=== PATIENT | male | born 1960 | race Caucasian/White ===

== ENCOUNTER 2016-08-21 13:25 | Emergency (ER) | payer OTHER ==
[~2016-08-21] VITALS: Ht 170.2 cm; Wt 86.2 kg
[~2016-08-21 13:25] MED LIST: FLUR15CA14 PO; LORA-258 PO; METH-490 PO; OMEP2.5S PO
--- NOTE | 2016-08-21 13:30 | NUR ---
PT BEN FROM [facility] TO ER BED 11. C/O SOB, CHEST PRESSURE X TODAY. STATES NON PROVOKE. ADMITTED TO HC FOR SI. GOWNED AND PLACED ON MONITOR. STABLE VITALS. AWAITING MD ALTMAN.
--- NOTE | 2016-08-21 13:47 | NUR ---
ALEX LINCOLN AT BEDSIDE FOR EVAL.
[2016-08-21] MEDS ORDERED: IV SET PRIMARY 1 EA INFUS.SET MC ONE (13:58)
[2016-08-21] MEDS ORDERED: IV NS 0.9% 500 ML IV ONE (13:58)
[2016-08-21] MEDS ORDERED: LORAZEPAM INJ 2 MG/ML VIAL ONE ×2 (13:58→18:06)
[2016-08-21] MEDS ORDERED: ASPIRIN 81 MG TAB.CHEW ONE (13:58)
--- NOTE | 2016-08-21 13:59 | NUR ---
RADIOLOGY AT BEDSIDE FOR CHEST XRAY.
[2016-08-21] MEDS ORDERED: IV NS 0.9% 500 ML BAG IV ONE (14:00)
[2016-08-21] MEDS ORDERED: LORAZEPAM INJ 2 MG/ML VIAL IV ONE ×2 (14:00→18:30)
[2016-08-21] MEDS ORDERED: ASPIRIN 81 MG TAB.CHEW PO ONE (14:00)
[2016-08-21 14:22] LABS: CALCIUM, SERUM 8.8 mg/dL (8.5-10.1); CARBON DIOXIDE 22 mmol/L (21-32); CHLORIDE 106 mmol/L (98-107); GFR 78 mL/min (>60); GLUCOSE 98 mg/dL (74-106); POTASSIUM 4.5 mmol/L (3.5-5.1); SODIUM SERUM 138 mmol/L (136-145); UREA NITROGEN, BLOOD 17 mg/dL (7-18)
[2016-08-21 14:27] LABS: BASOPHILS % (AUTO) 0.5 % (0.0-2.0); EOSINOPHILS # (AUTO) 0.1 /CMM (0.0-0.7); EOSINOPHILS % (AUTO) 1.8 % (0.0-6.0); HEMATOCRIT 43 % (39-51); HEMOGLOBIN 14.5 g/dL (13.5-17.5); INR 0.96 (0.87-1.13); LYMPHOCYTES # (AUTO) 1.8 /CMM (0.8-4.8); LYMPHOCYTES % (AUTO) 23.4 % (20.0-44.0); MEAN CORPUSCULAR HEMOGLOBIN 30 PG (26.0-33.0); MEAN CORPUSCULAR HGB CONC 34 g/dl (31.0-36.0); MEAN CORPUSCULAR VOLUME 90 fL (80-96); MONOCYTES # (AUTO) 0.5 /CMM (0.1-1.30); MONOCYTES % (AUTO) 5.9 % (2.0-12.0); NEUTROPHILS # (AUTO) 5.4 /CMM (1.8-8.9); NEUTROPHILS % (AUTO) 68.4 % (43.0-81.0); PLATELET COUNT (AUTO) 330 /CMM (150-450); PROTHROMBIN TIME 10.2 SECS (9.5-12.7); RDW COEFFICIENT OF VARIATION 13.5 (11.5-15.0); RED BLOOD CELL COUNT(AUTO) 4.78 MIL/uL (4.5-6.0); WHITE BLOOD COUNT (AUTO) 7.9 K/uL (4.3-11.0)
[2016-08-21 14:31] LABS: TROPONIN I < 0.017 ng/mL (0.00-0.056)
--- NOTE | 2016-08-21 14:42 | NUR ---
CALLED FOR FOOD TRAY
--- NOTE | 2016-08-21 18:08 | NUR ---
CALLED [facility] FOR TRANSPORT BACK TO [facility], VASILE 30-45 MIN
--- NOTE | 2016-08-21 18:55 | NUR ---
IV removed. Catheter intact and site benign. Pressure and 4x4 applied to site. No bleeding noted.
--- NOTE | 2016-08-21 19:00 | NUR ---
[facility]ON[facility] TO TRANSFER PT BACK TO [facility]. STABLE CONDITION.
[2016-08-21 19:02] VITALS: BP 127/83
== END 2016-08-21 19:03 | disposition home or self-care (01) ==
LOC: ER 13:27
DX: R07.9 Chest pain, unspecified (principal); F31.9 Bipolar disorder, unspecified; F41.9 Anxiety disorder, unspecified; F90.9 Attention-deficit hyperactivity disorder, unspecified type; K21.9 Gastro-esophageal reflux disease without esophagitis; K58.9 Irritable bowel syndrome, unspecified; M06.9 Rheumatoid arthritis, unspecified; M81.0 Age-related osteoporosis without current pathological fracture; Z88.8 Allergy status to other drugs, medicaments and biological substances; Z79.82 Long term (current) use of aspirin
CPT/HCPCS: 36415; 71010; 80048; 83880; 84484 ×2; 85025; 85378; 85730; 93005; 96374; 96376; 99285; A4606; J2060 ×2; J7040; Z7610

== ENCOUNTER 2017-09-13 15:31 | Emergency (ER) | payer OTHER ==
[~2017-09-13] VITALS: Ht 170.2 cm; Wt 81.6 kg
[2017-09-13 15:31] VITALS: BP 113/81
[~2017-09-13 15:31] MED LIST changes: -OMEP2.5S PO; +OMEP2.5S2 PO
[2017-09-13] MEDS ORDERED: LORAZEPAM 1 MG TABLET ONE (15:59)
[2017-09-13] MEDS ORDERED: LORAZEPAM 1 MG TABLET PO ONE (16:00)
[2017-09-13 16:06] LABS: BASOPHILS % (AUTO) 0.3 % (0.0-2.0); EOSINOPHILS % (AUTO) 1.5 % (0.0-6.0); HEMATOCRIT 45 % (39-51); HEMOGLOBIN 15.7 g/dL (13.5-17.5); LYMPHOCYTES # (AUTO) 2.1 /CMM (0.8-4.8); LYMPHOCYTES % (AUTO) 29.8 % (20.0-44.0); MEAN CORPUSCULAR HGB CONC 35 g/dl (31.0-36.0); MEAN CORPUSCULAR VOLUME 87 fL (80-96); MONOCYTES # (AUTO) 0.4 /CMM (0.1-1.30); MONOCYTES % (AUTO) 5.4 % (2.0-12.0); NEUTROPHILS # (AUTO) 4.6 /CMM (1.8-8.9); PLATELET COUNT (AUTO) 254 /CMM (150-450); RDW COEFFICIENT OF VARIATION 12.7 (11.5-15.0); RED BLOOD CELL COUNT(AUTO) 5.19 MIL/uL (4.5-6.0); WHITE BLOOD COUNT (AUTO) 7.2 K/uL (4.3-11.0)
[2017-09-13 16:17] LABS: CARBON DIOXIDE 23 mmol/L (21-32); CHLORIDE 104 mmol/L (98-107); CREATININE 0.9 mg/dL (0.6-1.3); GLUCOSE 112 mg/dL (74-106); POTASSIUM 3.9 mmol/L (3.5-5.1); SODIUM SERUM 136 mmol/L (136-145); UREA NITROGEN, BLOOD 18 mg/dL (7-18)
[2017-09-13 16:19] LABS: INR 0.95 (0.85-1.15)
[2017-09-13 16:26] LABS: TROPONIN I < 0.017 ng/mL (0.00-0.056)
[2017-09-13 16:34] LABS: D-DIMER 0.38 mg/L(FEU (0.17-0.50)
== END 2017-09-13 17:04 | disposition home or self-care (01) ==
LOC: ER 15:32
DX: F41.9 Anxiety disorder, unspecified (principal); G43.909 Migraine, unspecified, not intractable, without status migrainosus; K21.9 Gastro-esophageal reflux disease without esophagitis; K58.9 Irritable bowel syndrome, unspecified; Z88.8 Allergy status to other drugs, medicaments and biological substances
CPT/HCPCS: 36415; 71045; 80048; 84484; 85025; 85378; 85730; 93005; 99285; A4606; Z7610

== ENCOUNTER 2019-02-07 18:29 | Emergency (ER) | payer OTHER ==
[~2019-02-07] VITALS: Ht 170.2 cm; Wt 83.9 kg
[2019-02-07 19:02] LABS: APPEARANCE,URINE Clear (CLEAR); BILIRUBIN,URINE Negative (NEGATIVE); BLOOD, URINE Negative Ery/uL (NEGATIVE); COLOR,URINE Yellow (YELLOW); KETONES,URINE Negative (NEGATIVE); LEUKOCYTE ESTERASE ,URINE Trace (NEGATIVE); NITRITE, URINE Negative (NEGATIVE); PROTEIN,URINE Negative (NEGATIVE); UGLUCOSE Negative (NEGATIVE); UROBILINOGEN,URINE 0.2 EU/dL (0.2)
--- NOTE | 2019-02-07 19:05 | NUR ---
patient came in to the er verbalized "i want to kill myself, i will take all my pills at once". On room air, breathing evenly and unlabored. kept comfortable, sitter at bedside for constant monitoring. Will continue to monitor accordingly.
--- NOTE | 2019-02-07 19:10 | NUR ---
urine collected and sent to lab
[2019-02-07 19:30] LABS: BACTERIA,URINE Rare /HPF (None Seen); RBC,URINE NONE SEEN /HPF (0-2); SQUAMOUS EPITHELIAL CELL,UR Rare /HPF (None Seen); WBC,URINE 2-4/HPF /HPF (0-3)
[2019-02-07 19:31] LABS: MUCUS,URINE Few /LPF (None Seen)
[2019-02-07 19:32] LABS: BASOPHILS % (AUTO) 0.5 % (0.0-2.0); HEMATOCRIT 43 % (39-51); HEMOGLOBIN 14.8 g/dL (13.5-17.5); LYMPHOCYTES # (AUTO) 2.7 /CMM (0.8-4.8); LYMPHOCYTES % (AUTO) 35.6 % (20.0-44.0); MEAN CORPUSCULAR HGB CONC 35 g/dl (31.0-36.0); MEAN CORPUSCULAR VOLUME 90 fL (80-96); MONOCYTES # (AUTO) 0.6 /CMM (0.1-1.30); MONOCYTES % (AUTO) 8.6 % (2.0-12.0); NEUTROPHILS # (AUTO) 4.1 /CMM (1.8-8.9); NEUTROPHILS % (AUTO) 54.3 % (43.0-81.0); PLATELET COUNT (AUTO) 307 /CMM (150-450); RED BLOOD CELL COUNT(AUTO) 4.72 MIL/uL (4.5-6.0); WHITE BLOOD COUNT (AUTO) 7.6 K/uL (4.3-11.0)
[2019-02-07 19:43] LABS: CALCIUM, SERUM 8.8 mg/dL (8.5-10.1); CARBON DIOXIDE 25 mmol/L (21-32); CHLORIDE 104 mmol/L (98-107); GLUCOSE 89 mg/dL (74-106); POTASSIUM 3.7 mmol/L (3.5-5.1); SODIUM SERUM 139 mmol/L (136-145); UREA NITROGEN, BLOOD 15 mg/dL (7-18)
[2019-02-07 19:49] LABS: ALANINE AMINOTRANSFERASE 32 U/L (12-78); ALBUMIN 3.8 g/dL (3.4-5.0); ALCOHOL, BLOOD < 3 mg/dL (0-0); ALKALINE PHOSPHATASE 83 U/L (46-116); ASPARTATE AMINOTRANSFERASE 16 U/L (15-37); BILIRUBIN,TOTAL 0.2 mg/dL (0.2-1.0); TOTAL PROTEIN, SERUM 7.3 g/dL (6.4-8.2)
[2019-02-07 19:52] LABS: ACETAMINOPHEN < 5 ug/ml (10-30)
--- NOTE | 2019-02-07 20:19 | NUR ---
PER JIM AT [facility] INTAKE, MALE BED AVAILABLE AT THIS TIME. FAXED OVER CLINICAL INFORMATION, PENDING ADMISSION
--- NOTE | 2019-02-07 21:25 | NUR ---
PT [facility] ACCEPTING MD: DR. SANTAMARIA NUMBER FOR REPORT: [phone]
--- NOTE | 2019-02-07 21:30 | NUR ---
[facility] ETA 2300, TRIP NUMBER [id number]
--- NOTE | 2019-02-07 21:35 | NUR ---
Note sawyer in ED - 02/07/19 at 2143 by GAURANG PT PACING AROUND IN BED AND CONSTANTLY NEEDING TO BE TOLD TO RETURN TO BED. PT STATES HE FEELS ANXIOUS AND AGITATED. DR. CORDOVA MADE AWARE
--- NOTE | 2019-02-07 21:35 | NUR ---
PT PACING AROUND NEAR BED AND CONSTANTLY NEEDING TO BE TOLD TO RETURN TO BED. PT STATES HE FEELS ANXIOUS AND AGITATED. DR. CORDOVA MADE AWARE, SITTER AT BEDSIDE
--- NOTE | 2019-02-07 21:40 | NUR ---
GAVE REPORT TO VINNIE CONNER FOR [facility]
--- NOTE | 2019-02-07 23:03 | NUR ---
[facility] CALLED TO UPDATE ETA TO [phone]
[2019-02-08 00:01] VITALS: BP 98/55
--- NOTE | 2019-02-08 00:03 | NUR ---
GAVE REPORT TO [facility] FOR TRANSPORTATION [facility]
== END 2019-02-08 00:03 ==
LOC: ER 18:29
DX: R45.851 Suicidal ideations (principal); F32.9 Major depressive disorder, single episode, unspecified; G43.909 Migraine, unspecified, not intractable, without status migrainosus; K21.9 Gastro-esophageal reflux disease without esophagitis; K58.9 Irritable bowel syndrome, unspecified; M06.9 Rheumatoid arthritis, unspecified; M81.0 Age-related osteoporosis without current pathological fracture; F90.9 Attention-deficit hyperactivity disorder, unspecified type; F17.200 Nicotine dependence, unspecified, uncomplicated; Z88.8 Allergy status to other drugs, medicaments and biological substances; Z79.899 Other long term (current) drug therapy
CPT/HCPCS: 36415; 80048; 80076; 80305; 80307; 80329; 81001; 85025; 99285; G0480; 81000-TC

== ENCOUNTER 2019-03-20 13:53 | Emergency (ER) | payer OTHER ==
[~2019-03-20] VITALS: Ht 170.2 cm; Wt 90.7 kg
--- NOTE | 2019-03-20 13:59 | NUR ---
"SUICIDAL, PT STATES "I FEEL LIKE KILLING MYSELF, OD ON HEROIN", -HI" PT AAOX4, -SOB, NAD NOTED, ALL BELOGINGS IN LOCKER FOR SAFETY, 1:1 SITTER AT BEDSIDE, PENDING MD ALTMAN.
--- NOTE | 2019-03-20 14:02 | NUR ---
Security at bedside for wanding.
--- NOTE | 2019-03-20 14:07 | NUR ---
URINE SPECIMEN COLLECTED AND SENT TO LAB.
--- NOTE | 2019-03-20 14:10 | NUR ---
AT BEDSIDE FOR EVAL.
--- NOTE | 2019-03-20 14:15 | NUR ---
BAM left a voicemail message for Dmitry requesting a call back regarding bed availability at [facility].
--- NOTE | 2019-03-20 14:43 | NUR ---
BAM received a callback from Dmitry stating they should have beds available. BAM provided Dmitry with pt's information. Dmitry stated he will call BAM right back in a few minutes after checking in with [facility]. BAM to fax clinicals once labs are done.
[2019-03-20 15:03] LABS: BILIRUBIN,URINE SMALL (NEGATIVE); BLOOD, URINE Negative Ery/uL (NEGATIVE); COLOR,URINE Yellow (YELLOW); KETONES,URINE Trace (NEGATIVE); LEUKOCYTE ESTERASE ,URINE Negative (NEGATIVE); NITRITE, URINE Negative (NEGATIVE); PH,URINE 5.5 (5.0-8.0); PROTEIN,URINE 30 mg/dl (NEGATIVE); UGLUCOSE Negative (NEGATIVE); UROBILINOGEN,URINE 0.2 EU/dL (0.2)
[2019-03-20 15:04] LABS: APPEARANCE,URINE HAZY (CLEAR)
[2019-03-20 15:10] LABS: BASOPHILS # (AUTO) 0.1 /CMM (0.0-0.2); BASOPHILS % (AUTO) 1.2 % (0.0-2.0); EOSINOPHILS % (AUTO) 2.3 % (0.0-6.0); HEMATOCRIT 43 % (39-51); HEMOGLOBIN 14.3 g/dL (13.5-17.5); LYMPHOCYTES # (AUTO) 2.5 /CMM (0.8-4.8); MEAN CORPUSCULAR HGB CONC 33 g/dl (31.0-36.0); MEAN CORPUSCULAR VOLUME 92 fL (80-96); MONOCYTES # (AUTO) 0.7 /CMM (0.1-1.30); MONOCYTES % (AUTO) 7.3 % (2.0-12.0); NEUTROPHILS # (AUTO) 5.8 /CMM (1.8-8.9); NEUTROPHILS % (AUTO) 62.2 % (43.0-81.0); PLATELET COUNT (AUTO) 295 /CMM (150-450); RED BLOOD CELL COUNT(AUTO) 4.69 MIL/uL (4.5-6.0); WHITE BLOOD COUNT (AUTO) 9.3 K/uL (4.3-11.0)
[2019-03-20 15:39] LABS: BACTERIA,URINE Few /HPF (None Seen); MUCUS,URINE Many /LPF (None Seen); RBC,URINE 0-2 /HPF (0-2); SQUAMOUS EPITHELIAL CELL,UR Few /HPF (None Seen); WBC,URINE 0-2 /HPF (0-3)
--- NOTE | 2019-03-20 15:40 | NUR ---
BAM called Dmitry again to inquire if they will have a bed for the pt. Per Dmitry, pt. will have a bed at [facility].
--- NOTE | 2019-03-20 16:03 | NUR ---
Social service consult requested by Dr. Lugo for suicidal ideations with a plan to overdose on heroin. Pt. is a 59 year old male with a plan to OD on heroin. BAM met with the pt. bedside. Pt. is alert and oriented x 4. Pt has a sad affect and appears teary eyed. Pt. states he resides in [place]. Pt. is seeking voluntary hospitalization. Pt. was hospitalized at [facility] psychiatric hospital on 02/07/19. Pt. has a psychiatric diagnosis of ADHD, Depression and Anxiety. Pt. is supposed to take Ativan but has not taken any as his psychiatrist is retired and he hasn't seen another one. Pt. has tried heroin once in the past and denies any other drug or alcohol use. BAM informed pt. he is being referred to [facility] for psychiatric admission and pt. agreed. BAM received a call from CHECO at [facility] Intake informing SW they have not received any clinicals. BAM informed him they will be faxed once the lab results are available. BAM updated UBALDO Porter and ROGER Sarmiento with pt's discharge plan.
[2019-03-20 16:07] LABS: CALCIUM, SERUM 9.2 mg/dL (8.5-10.1); CARBON DIOXIDE 23 mmol/L (21-32); CHLORIDE 105 mmol/L (98-107); CREATININE 1.1 mg/dL (0.6-1.3); GLUCOSE 150 mg/dL (74-106); POTASSIUM 3.5 mmol/L (3.5-5.1); SODIUM SERUM 140 mmol/L (136-145); UREA NITROGEN, BLOOD 18 mg/dL (7-18)
[2019-03-20 16:08] LABS: ACETAMINOPHEN < 2 ug/ml (10-30); ALANINE AMINOTRANSFERASE 17 U/L (12-78); ALBUMIN 3.7 g/dL (3.4-5.0); ALCOHOL, BLOOD < 3 mg/dL (0-0); ALKALINE PHOSPHATASE 84 U/L (46-116); ASPARTATE AMINOTRANSFERASE 16 U/L (15-37); BILIRUBIN,DIRECT 0.1 mg/dL (0.0-0.2); BILIRUBIN,TOTAL 0.6 mg/dL (0.2-1.0); SALICYLATE < 2.8 mg/dL (2.8-20.0); TOTAL PROTEIN, SERUM 7.1 g/dL (6.4-8.2)
--- NOTE | 2019-03-20 19:05 | NUR ---
[facility] INTAKE FROM [facility] WILL CALL BACK FOR UPDATE
--- NOTE | 2019-03-20 21:16 | NUR ---
ACCEPTED TO [facility]. [phone] REPORT. ACCEPTING MD DR KERR
[2019-03-20 22:45] VITALS: BP 110/63
--- NOTE | 2019-03-20 22:45 | NUR ---
PT TRANSPORTED TO [facility], NAD NOTED -SOB, REPORT GIVEN TO STAFF.
--- NOTE | 2019-03-20 22:45 | NUR ---
REPORT GIVEN TO ESSIE PORRAS
== END 2019-03-20 22:47 ==
LOC: ER 13:53
DX: R45.851 Suicidal ideations (principal); F32.9 Major depressive disorder, single episode, unspecified; G43.909 Migraine, unspecified, not intractable, without status migrainosus; K21.9 Gastro-esophageal reflux disease without esophagitis; K58.9 Irritable bowel syndrome, unspecified; M06.9 Rheumatoid arthritis, unspecified; M81.0 Age-related osteoporosis without current pathological fracture; F90.9 Attention-deficit hyperactivity disorder, unspecified type; F17.200 Nicotine dependence, unspecified, uncomplicated; Z88.8 Allergy status to other drugs, medicaments and biological substances; Z60.2 Problems related to living alone
CPT/HCPCS: 36415; 80048; 80076; 80305; 80307; 80329; 81001; 85025; 99285; G0480; 81000-TC

== ENCOUNTER 2019-04-14 00:09 | Emergency (ER) | payer OTHER ==
[~2019-04-14] VITALS: Ht 170.2 cm; Wt 88.5 kg
--- NOTE | 2019-04-14 00:40 | NUR ---
BIBSELF C/O +SI - HI, PLAN TO OVERDOSE ON HEROINE. 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 PT AOX4 RR EVEN AND UNLABORD. NO SOB NOTED. NO NVD AT THIS TIME. PT PERSONAL BELONGINGS PLACED IN SECUIRTY LOCKER. PT WANDED PER SECURITY. PT PLACED ON SECURITY PRECAUTION. SITTER WITHIN LINE OF SIGHT.
[2019-04-14 01:05] LABS: CALCIUM, SERUM 9.2 mg/dL (8.5-10.1); CARBON DIOXIDE 22 mmol/L (21-32); CHLORIDE 107 mmol/L (98-107); CREATININE 0.8 mg/dL (0.6-1.3); GLUCOSE 103 mg/dL (74-106); POTASSIUM 3.9 mmol/L (3.5-5.1); SODIUM SERUM 140 mmol/L (136-145); UREA NITROGEN, BLOOD 15 mg/dL (7-18)
[2019-04-14 01:07] LABS: BASOPHILS # (AUTO) 0.1 /CMM (0.0-0.2); BASOPHILS % (AUTO) 0.8 % (0.0-2.0); EOSINOPHILS % (AUTO) 2.4 % (0.0-6.0); HEMATOCRIT 45 % (39-51); HEMOGLOBIN 15.2 g/dL (13.5-17.5); LYMPHOCYTES # (AUTO) 3.2 /CMM (0.8-4.8); LYMPHOCYTES % (AUTO) 41.4 % (20.0-44.0); MEAN CORPUSCULAR HGB CONC 34 g/dl (31.0-36.0); MEAN CORPUSCULAR VOLUME 90 fL (80-96); MONOCYTES # (AUTO) 0.6 /CMM (0.1-1.30); MONOCYTES % (AUTO) 8.1 % (2.0-12.0); NEUTROPHILS # (AUTO) 3.6 /CMM (1.8-8.9); NEUTROPHILS % (AUTO) 47.3 % (43.0-81.0); PLATELET COUNT (AUTO) 284 /CMM (150-450); RED BLOOD CELL COUNT(AUTO) 4.99 MIL/uL (4.5-6.0); WHITE BLOOD COUNT (AUTO) 7.7 K/uL (4.3-11.0)
--- NOTE | 2019-04-14 01:07 | NUR ---
urine collected. sent to lab
[2019-04-14 01:11] LABS: ALANINE AMINOTRANSFERASE 27 U/L (12-78); ALCOHOL, BLOOD < 3 mg/dL (0-0); ALKALINE PHOSPHATASE 92 U/L (46-116); ASPARTATE AMINOTRANSFERASE 16 U/L (15-37); BILIRUBIN,DIRECT 0.1 mg/dL (0.0-0.2); BILIRUBIN,TOTAL 0.5 mg/dL (0.2-1.0); TOTAL PROTEIN, SERUM 7.5 g/dL (6.4-8.2)
[2019-04-14 01:13] LABS: APPEARANCE,URINE Clear (CLEAR); BILIRUBIN,URINE Negative (NEGATIVE); BLOOD, URINE Negative Ery/uL (NEGATIVE); COLOR,URINE Yellow (YELLOW); KETONES,URINE Negative (NEGATIVE); LEUKOCYTE ESTERASE ,URINE Small (NEGATIVE); NITRITE, URINE Negative (NEGATIVE); PH,URINE 5.5 (5.0-8.0); PROTEIN,URINE Negative (NEGATIVE); UGLUCOSE Negative (NEGATIVE); UROBILINOGEN,URINE 0.2 EU/dL (0.2)
[2019-04-14 01:16] LABS: ACETAMINOPHEN 0 ug/ml (10-30); SALICYLATE 1.9 mg/dL (2.8-20.0)
[2019-04-14 01:50] LABS: BACTERIA,URINE None seen /HPF (None Seen); RBC,URINE 0-2 /HPF (0-2); SQUAMOUS EPITHELIAL CELL,UR Few /HPF (None Seen)
--- NOTE | 2019-04-14 02:43 | NUR ---
PATIENT ACCEPTED TO [facility] BY DR SANTAMARIA. # FOR REPORT [phone].
[2019-04-14 02:45] VITALS: BP 122/77
--- NOTE | 2019-04-14 03:02 | NUR ---
[facility] CALLED FOR BLS TRANSPORT. #[phone]
--- NOTE | 2019-04-14 03:18 | NUR ---
[facility] ETA 4501
--- NOTE | 2019-04-14 03:51 | NUR ---
REPORT GIVEN TO EMILY CONNER FOR CONTINUATION OF CARE.
--- NOTE | 2019-04-14 06:03 | NUR ---
[facility] AT BEDSIDE FOR TRANSPORT TO [facility].
== END 2019-04-14 06:04 ==
LOC: ER 00:12
DX: R45.851 Suicidal ideations (principal); F15.10 Other stimulant abuse, uncomplicated; G43.909 Migraine, unspecified, not intractable, without status migrainosus; K21.9 Gastro-esophageal reflux disease without esophagitis; K58.9 Irritable bowel syndrome, unspecified; M06.9 Rheumatoid arthritis, unspecified; F17.200 Nicotine dependence, unspecified, uncomplicated; M81.0 Age-related osteoporosis without current pathological fracture; F90.9 Attention-deficit hyperactivity disorder, unspecified type; Z88.8 Allergy status to other drugs, medicaments and biological substances; Z79.899 Other long term (current) drug therapy
CPT/HCPCS: 36415; 80048; 80076; 80305; 80307; 80329; 81001; 85025; 99285; A6403; G0480; 81000-TC

== ENCOUNTER 2019-04-19 20:41 | Emergency (ER) | payer OTHER ==
[~2019-04-19] VITALS: Ht 170.2 cm; Wt 86.2 kg
--- NOTE | 2019-04-19 20:58 | NUR ---
PT AAOX4. AMBULATORY. PT C/O SI WITH PLAN TO OVERDOSE ON HEROINE. -HI. PT STATES HE HAS GONE TO SO [facility] [place] BUT "LEFT TOO LEARLY. PT PLACED IN GOWN. PT BELONGINGS PALCED IN LOCKER. NO ACUTE DISTRESS NOTED.
[2019-04-19 21:16] LABS: APPEARANCE,URINE Clear (CLEAR); BILIRUBIN,URINE SMALL (NEGATIVE); BLOOD, URINE Negative Ery/uL (NEGATIVE); COLOR,URINE Yellow (YELLOW); KETONES,URINE 15 (NEGATIVE); LEUKOCYTE ESTERASE ,URINE Small (NEGATIVE); NITRITE, URINE Negative (NEGATIVE); PH,URINE 5.5 (5.0-8.0); PROTEIN,URINE Trace mg/dl (NEGATIVE); UGLUCOSE Negative (NEGATIVE); UROBILINOGEN,URINE 0.2 EU/dL (0.2)
--- NOTE | 2019-04-19 21:24 | NUR ---
[employer]OTIONS FIRM ACCOUNTS MANAGER AT BEDSIDE FOR LAB COLLECTION
[2019-04-19 21:39] LABS: BASOPHILS % (AUTO) 0.5 % (0.0-2.0); EOSINOPHILS % (AUTO) 1.7 % (0.0-6.0); HEMATOCRIT 49 % (39-51); HEMOGLOBIN 16.3 g/dL (13.5-17.5); LYMPHOCYTES # (AUTO) 2.9 /CMM (0.8-4.8); MEAN CORPUSCULAR HGB CONC 34 g/dl (31.0-36.0); MEAN CORPUSCULAR VOLUME 91 fL (80-96); MONOCYTES # (AUTO) 0.7 /CMM (0.1-1.30); MONOCYTES % (AUTO) 9.8 % (2.0-12.0); NEUTROPHILS # (AUTO) 3.6 /CMM (1.8-8.9); PLATELET COUNT (AUTO) 240 /CMM (150-450); RED BLOOD CELL COUNT(AUTO) 5.36 MIL/uL (4.5-6.0); WHITE BLOOD COUNT (AUTO) 7.3 K/uL (4.3-11.0)
[2019-04-19 21:42] LABS: BACTERIA,URINE Many /HPF (None Seen); RBC,URINE 0-2 /HPF (0-2); SQUAMOUS EPITHELIAL CELL,UR Few /HPF (None Seen)
[2019-04-19 21:47] LABS: CALCIUM, SERUM 9.4 mg/dL (8.5-10.1); CARBON DIOXIDE 28 mmol/L (21-32); CHLORIDE 105 mmol/L (98-107); CREATININE 0.9 mg/dL (0.6-1.3); GLUCOSE 93 mg/dL (74-106); POTASSIUM 3.9 mmol/L (3.5-5.1); SODIUM SERUM 143 mmol/L (136-145); UREA NITROGEN, BLOOD 17 mg/dL (7-18)
[2019-04-19 21:52] LABS: ALANINE AMINOTRANSFERASE 30 U/L (12-78); ALCOHOL, BLOOD < 3 mg/dL (0-0); ALKALINE PHOSPHATASE 88 U/L (46-116); ASPARTATE AMINOTRANSFERASE 24 U/L (15-37); BILIRUBIN,DIRECT 0.1 mg/dL (0.0-0.2); BILIRUBIN,TOTAL 0.7 mg/dL (0.2-1.0); TOTAL PROTEIN, SERUM 7.7 g/dL (6.4-8.2)
[2019-04-19 21:53] LABS: ACETAMINOPHEN < 2 ug/ml (10-30); SALICYLATE 1.1 mg/dL (2.8-20.0)
[2019-04-19] MEDS ORDERED: ACETAMINOPHEN 325 MG TABLET PO ONE (22:00)
[2019-04-19] MEDS ORDERED: LORAZEPAM 1 MG TABLET PO ONE (22:30)
[2019-04-19] MEDS ORDERED: LORAZEPAM 1 MG TABLET ONE (22:41)
[2019-04-19] MEDS ORDERED: ACETAMINOPHEN ES 500 MG TABLET ONE (22:42)
--- NOTE | 2019-04-19 23:11 | NUR ---
CLINICALS FAXED TO [facility]
--- NOTE | 2019-04-19 23:19 | NUR ---
SPOKE TO BRYAN AT [facility] INTAKE, WAS INFORMED THAT BEDS ARE FILLED AT [facility], AND [place]. WILL BE PLACED ON A WAITING LIST AND INTAKE WILL CALL BACK WITH ANY UPDATES ON BEDS.
--- NOTE | 2019-04-19 23:26 | NUR ---
Patient is resting comfortably in bed. Easily aroused. VSS.
--- NOTE | 2019-04-20 00:44 | NUR ---
PT RESTING COMFORTABLY. VSS.
--- NOTE | 2019-04-20 01:26 | NUR ---
PT RESTING COMFORTABLY. EASILY AROUSED.
--- NOTE | 2019-04-20 01:32 | NUR ---
PT ACCEPTED TO [facility]: [phone] KERR.
--- NOTE | 2019-04-20 02:00 | NUR ---
[id number] WORKING ON TRANSPORTATION ETA. WILL CALLBACK WITH UPDATE
--- NOTE | 2019-04-20 02:14 | NUR ---
[address] TRANSPORT #[id number]
[2019-04-20 02:23] VITALS: BP 110/60
--- NOTE | 2019-04-20 02:57 | NUR ---
REPORT GIVEN TO DANNI CONNER FOR [facility]
--- NOTE | 2019-04-20 03:09 | NUR ---
ROOM 109-A UNIT 1
--- NOTE | 2019-04-20 03:45 | NUR ---
Pt transfered to [facility]
== END 2019-04-20 03:47 ==
LOC: ER 20:41
DX: R45.851 Suicidal ideations (principal); F15.10 Other stimulant abuse, uncomplicated; F41.9 Anxiety disorder, unspecified; F90.9 Attention-deficit hyperactivity disorder, unspecified type; F32.2 Major depressive disorder, single episode, severe without psychotic features; G43.909 Migraine, unspecified, not intractable, without status migrainosus; F17.200 Nicotine dependence, unspecified, uncomplicated; K58.9 Irritable bowel syndrome, unspecified; Z02.89 Encounter for other administrative examinations; Z88.2 Allergy status to sulfonamides; Z88.8 Allergy status to other drugs, medicaments and biological substances; Z88.9 Allergy status to unspecified drugs, medicaments and biological substances; Z79.899 Other long term (current) drug therapy
CPT/HCPCS: 36415; 80048; 80076; 80305; 80307; 80329; 81001; 85025; 87086; 99285; 99406; G0480; 81000-TC

== ENCOUNTER 2019-04-30 15:08 | Emergency (ER) | payer OTHER ==
[~2019-04-30] VITALS: Ht 170.2 cm; Wt 86.2 kg
--- NOTE | 2019-04-30 15:28 | NUR ---
Judy jacques in [facility] - 04/30/19 at 1549 by ILAN URINE COLLECTED
--- NOTE | 2019-04-30 15:30 | NUR ---
PT BIBS. C/O suicidal thoughts, -HI, "i want to overdose on heroin." PT PLACED IN GOWN. BELONGINING PLACED IN LOCKER. NO ACUE DISTRESS NOTED.
--- NOTE | 2019-04-30 15:31 | NUR ---
FATIMAH MUÑOZ AT BEDSIDE
--- NOTE | 2019-04-30 15:31 | NUR ---
SECURITY CALLED FOR BETTE
--- NOTE | 2019-04-30 15:32 | NUR ---
PT PLACED ON MONITOR AND PULSE OX. BOZENA AND JUICE PROVIDED.
--- NOTE | 2019-04-30 15:38 | NUR ---
FIELD IDENTIFICATION SPECIALIST AT BEDSIDE FOR LAB COLLECTION
[2019-04-30 15:52] LABS: BASOPHILS % (AUTO) 0.5 % (0.0-2.0); EOSINOPHILS % (AUTO) 0.9 % (0.0-6.0); HEMATOCRIT 45 % (39-51); HEMOGLOBIN 15.3 g/dL (13.5-17.5); LYMPHOCYTES # (AUTO) 1.9 /CMM (0.8-4.8); LYMPHOCYTES % (AUTO) 24.3 % (20.0-44.0); MEAN CORPUSCULAR HGB CONC 34 g/dl (31.0-36.0); MEAN CORPUSCULAR VOLUME 90 fL (80-96); MONOCYTES # (AUTO) 0.5 /CMM (0.1-1.30); MONOCYTES % (AUTO) 6.7 % (2.0-12.0); NEUTROPHILS # (AUTO) 5.3 /CMM (1.8-8.9); NEUTROPHILS % (AUTO) 67.6 % (43.0-81.0); PLATELET COUNT (AUTO) 272 /CMM (150-450); RED BLOOD CELL COUNT(AUTO) 4.99 MIL/uL (4.5-6.0); WHITE BLOOD COUNT (AUTO) 7.8 K/uL (4.3-11.0)
--- NOTE | 2019-04-30 15:52 | NUR ---
URINE COLLECTED AND SENT TO LAB
--- NOTE | 2019-04-30 16:04 | NUR ---
PT RESTING IN BED COMFORTABLY. MEAL PROVIDED
[2019-04-30 16:17] LABS: APPEARANCE,URINE Clear (CLEAR); BILIRUBIN,URINE Negative (NEGATIVE); BLOOD, URINE Negative Ery/uL (NEGATIVE); COLOR,URINE Yellow (YELLOW); KETONES,URINE Trace (NEGATIVE); LEUKOCYTE ESTERASE ,URINE Trace (NEGATIVE); NITRITE, URINE Negative (NEGATIVE); PROTEIN,URINE Negative (NEGATIVE); UGLUCOSE Negative (NEGATIVE); UROBILINOGEN,URINE 0.2 EU/dL (0.2)
[2019-04-30 16:26] LABS: ALANINE AMINOTRANSFERASE 25 U/L (12-78); ALBUMIN 3.7 g/dL (3.4-5.0); ALCOHOL, BLOOD < 3 mg/dL (0-0); ALKALINE PHOSPHATASE 82 U/L (46-116); ASPARTATE AMINOTRANSFERASE 18 U/L (15-37); BILIRUBIN,DIRECT 0.1 mg/dL (0.0-0.2); BILIRUBIN,TOTAL 0.5 mg/dL (0.2-1.0); CALCIUM, SERUM 8.6 mg/dL (8.5-10.1); CARBON DIOXIDE 21 mmol/L (21-32); CHLORIDE 106 mmol/L (98-107); GLUCOSE 91 mg/dL (74-106); POTASSIUM 3.6 mmol/L (3.5-5.1); SODIUM SERUM 141 mmol/L (136-145); UREA NITROGEN, BLOOD 13 mg/dL (7-18)
[2019-04-30 16:28] LABS: ACETAMINOPHEN < 10 ug/ml (10-30); SALICYLATE 1.8 mg/dL (2.8-20.0)
--- NOTE | 2019-04-30 16:31 | NUR ---
Patient is resting comfortably in bed. Easily aroused. VSS. Sitter at bedside
[2019-04-30 16:32] LABS: BACTERIA,URINE None seen /HPF (None Seen)
--- NOTE | 2019-04-30 17:15 | NUR ---
Pt resting comfortably
--- NOTE | 2019-04-30 17:24 | NUR ---
FAXED CLINICALS TO [facility]
--- NOTE | 2019-04-30 17:58 | NUR ---
Patient is resting comfortably in bed with eyes closed. Easily aroused. VSS. Sitter at bedside
--- NOTE | 2019-04-30 18:04 | NUR ---
PER SHAGGY AT [facility] INTAKE CLINICALS BEING REVIEWED AND WILL CALL BACK FOR UPDATES
--- NOTE | 2019-04-30 18:30 | NUR ---
Per Socvincent "we will call around [phone] to recieve report"
--- NOTE | 2019-04-30 18:50 | NUR ---
PATIENT RESTING COMFOTABLY. OJ PROVIDED
--- NOTE | 2019-04-30 19:45 | NUR ---
PT [facility] DR [facility] REPORT TO BE GIVEN TO AUGUSTIN (NURSING SUP) ([phone]. ROOM NUMBER TO BE GIVEN AFTER REPORT.
--- NOTE | 2019-04-30 20:00 | NUR ---
CALLED NUMBER TO GIVE REPORT. NO RESPONSE
--- NOTE | 2019-04-30 20:04 | NUR ---
CALL THE CAR #[phone] ETA 2630
--- NOTE | 2019-04-30 20:11 | NUR ---
REPORT GIVEN TO AMY CONNER
--- NOTE | 2019-04-30 20:25 | NUR ---
Patient is resting comfortably in bed. Easily aroused. VSS.
[2019-04-30 21:30] VITALS: BP 95/66
[2019-04-30] MEDS ORDERED: LORAZEPAM 1 MG TABLET PO ONE (21:30)
[2019-04-30] MEDS ORDERED: LORAZEPAM 0.5 MG TABLET ONE (21:31)
--- NOTE | 2019-04-30 21:58 | NUR ---
REPORT GIVEN TO TRANSFER
== END 2019-04-30 22:01 ==
LOC: ER 15:16
DX: R45.851 Suicidal ideations (principal); F15.10 Other stimulant abuse, uncomplicated; F90.9 Attention-deficit hyperactivity disorder, unspecified type; F32.9 Major depressive disorder, single episode, unspecified; G43.909 Migraine, unspecified, not intractable, without status migrainosus; K21.9 Gastro-esophageal reflux disease without esophagitis; K58.9 Irritable bowel syndrome, unspecified; F17.200 Nicotine dependence, unspecified, uncomplicated; Z79.899 Other long term (current) drug therapy; Z88.8 Allergy status to other drugs, medicaments and biological substances; Z88.9 Allergy status to unspecified drugs, medicaments and biological substances
CPT/HCPCS: 36415; 80048; 80076; 80305; 80307; 80329; 81001; 85025; 99285; G0480; 81000-TC

== ENCOUNTER 2019-05-17 19:39 | Emergency (ER) | payer OTHER ==
[~2019-05-17] VITALS: Ht 170.2 cm; Wt 86.2 kg
--- NOTE | 2019-05-17 20:00 | NUR ---
PT BIBSELF C/O SUICIDAL IDEATION WITH PLAN TO OD ON PILLS. DENIES HI/HALLUCINATIONS AT THIS TIME. PT AAOX4. CALM AND COOPERATIVE. VITAL SIGNS STABLE. RESPIRATIONS EVEN AND UNLABORED. SKIN WARM AND INTACT. AMBULATORY WITH STEADY GAIT. NO ACUTE DISTRESS NOTED AT THIS TIME. SUICIDAL PRECAUTIONS INITIATED. BELONGINGS COLLECTED AND PLACED IN PATIENT LOCKER. PT PLACED IN GOWN. SITTER AT BEDSIDE. WILL CONTINUE TO MONITOR.
--- NOTE | 2019-05-17 21:15 | NUR ---
URINE COLLECTED AND SENT TO LAB
--- NOTE | 2019-05-17 21:45 | NUR ---
CONFERENCE CENTER MANAGER AT BEDSIDE FOR BLOOD DRAW
[2019-05-17 21:52] LABS: BASOPHILS # (AUTO) 0.1 /CMM (0.0-0.2); BASOPHILS % (AUTO) 0.8 % (0.0-2.0); EOSINOPHILS % (AUTO) 0.7 % (0.0-6.0); HEMATOCRIT 48 % (39-51); HEMOGLOBIN 16.2 g/dL (13.5-17.5); LYMPHOCYTES # (AUTO) 3.2 /CMM (0.8-4.8); LYMPHOCYTES % (AUTO) 28.5 % (20.0-44.0); MEAN CORPUSCULAR HGB CONC 34 g/dl (31.0-36.0); MEAN CORPUSCULAR VOLUME 89 fL (80-96); MONOCYTES # (AUTO) 0.8 /CMM (0.1-1.30); MONOCYTES % (AUTO) 7.2 % (2.0-12.0); NEUTROPHILS # (AUTO) 7.1 /CMM (1.8-8.9); NEUTROPHILS % (AUTO) 62.8 % (43.0-81.0); PLATELET COUNT (AUTO) 324 /CMM (150-450); RED BLOOD CELL COUNT(AUTO) 5.36 MIL/uL (4.5-6.0); WHITE BLOOD COUNT (AUTO) 11.4 K/uL (4.3-11.0)
[2019-05-17 21:57] LABS: CALCIUM, SERUM 9.4 mg/dL (8.5-10.1); CARBON DIOXIDE 22 mmol/L (21-32); CHLORIDE 103 mmol/L (98-107); CREATININE 0.9 mg/dL (0.6-1.3); GLUCOSE 101 mg/dL (74-106); POTASSIUM 3.8 mmol/L (3.5-5.1); SODIUM SERUM 139 mmol/L (136-145); UREA NITROGEN, BLOOD 12 mg/dL (7-18)
[2019-05-17] MEDS ORDERED: SULFAMETH/TRIMETH 800/160 MG 1 UDTAB TABLET PO ONE (22:00)
[2019-05-17] MEDS ORDERED: LORAZEPAM 1 MG TABLET PO ONE (22:00)
[2019-05-17 22:03] LABS: ALANINE AMINOTRANSFERASE 25 U/L (12-78); ALBUMIN 3.9 g/dL (3.4-5.0); ALKALINE PHOSPHATASE 105 U/L (46-116); ASPARTATE AMINOTRANSFERASE 18 U/L (15-37); BILIRUBIN,DIRECT 0.1 mg/dL (0.0-0.2); BILIRUBIN,TOTAL 0.6 mg/dL (0.2-1.0)
[2019-05-17 22:04] LABS: ACETAMINOPHEN < 2 ug/ml (10-30); ALCOHOL, BLOOD < 3 mg/dL (0-0)
[2019-05-17 22:16] LABS: APPEARANCE,URINE Clear (CLEAR); BILIRUBIN,URINE Negative (NEGATIVE); BLOOD, URINE Trace-intact Ery/uL (NEGATIVE); COLOR,URINE Yellow (YELLOW); KETONES,URINE Negative (NEGATIVE); LEUKOCYTE ESTERASE ,URINE Moderate (NEGATIVE); NITRITE, URINE Negative (NEGATIVE); PH,URINE 5.5 (5.0-8.0); PROTEIN,URINE Negative (NEGATIVE); UGLUCOSE Negative (NEGATIVE); UROBILINOGEN,URINE 0.2 EU/dL (0.2)
[2019-05-17 22:28] LABS: BACTERIA,URINE 2+ /HPF (None Seen); SQUAMOUS EPITHELIAL CELL,UR Few /HPF (None Seen); WBC,URINE 21-50 /HPF (0-3)
[2019-05-17] MEDS ORDERED: LORAZEPAM 1 MG TABLET ONE (22:49)
[2019-05-17] MEDS ORDERED: SULFAMETH/TRIMETH 800/160 MG 1 UDTAB TABLET ONE (22:50)
--- NOTE | 2019-05-17 23:15 | NUR ---
FAXED CLINICAL INFORMATION TO [facility]
--- NOTE | 2019-05-18 00:30 | NUR ---
TRANSFER INFO: PT WILL BE TRANSFERRED TO [facility] ACCEPTING MD: DR. SANTAMARIA UNIT 1 NUMBER FOR REPORT: [phone]
--- NOTE | 2019-05-18 00:35 | NUR ---
CALLED CALL THE CAR FOR TRANSPORTATION. ETA 60-90MIN
--- NOTE | 2019-05-18 00:42 | NUR ---
REPORT GIVEN TO DANNI CONNER FROM [facility] FOR [facility]
[2019-05-18 01:45] VITALS: BP 101/62
--- NOTE | 2019-05-18 01:45 | NUR ---
TRANSPORT AT BEDSIDE REPORT GIVEN TO EMT.
== END 2019-05-18 01:54 ==
LOC: ER 19:40
DX: R45.851 Suicidal ideations (principal); F15.10 Other stimulant abuse, uncomplicated; F17.200 Nicotine dependence, unspecified, uncomplicated; F12.90 Cannabis use, unspecified, uncomplicated; N39.0 Urinary tract infection, site not specified; L73.9 Follicular disorder, unspecified; M06.9 Rheumatoid arthritis, unspecified; K58.9 Irritable bowel syndrome, unspecified; F90.9 Attention-deficit hyperactivity disorder, unspecified type; G43.909 Migraine, unspecified, not intractable, without status migrainosus; K21.9 Gastro-esophageal reflux disease without esophagitis; Z88.8 Allergy status to other drugs, medicaments and biological substances; Z79.899 Other long term (current) drug therapy
CPT/HCPCS: 36415; 80048; 80076; 80305; 80307; 80329; 81001; 85025; 87086; 99285; 99406; G0480; 81000-TC

== ENCOUNTER 2019-05-26 12:13 | Emergency (ER) | payer OTHER ==
[~2019-05-26] VITALS: Ht 170.2 cm; Wt 86.2 kg
--- NOTE | 2019-05-26 12:30 | NUR ---
pt to ed bed 18 c/o depression that started yesterday and having thoughts of "kiling self." +plan to od on heroin. pt is cooperative to staff. denies any other complaints. placed on monitor. vss. seen and evaluated by nereyda cristina.
--- NOTE | 2019-05-26 12:33 | NUR ---
nereyda supervisor travel trailer at bedside for eval.
--- NOTE | 2019-05-26 12:40 | NUR ---
chemical lab technician at bedside for blood draw.
[2019-05-26 12:52] LABS: BASOPHILS % (AUTO) 0.5 % (0.0-2.0); EOSINOPHILS % (AUTO) 1.3 % (0.0-6.0); HEMATOCRIT 43 % (39-51); HEMOGLOBIN 14.7 g/dL (13.5-17.5); LYMPHOCYTES # (AUTO) 1.7 /CMM (0.8-4.8); LYMPHOCYTES % (AUTO) 25.3 % (20.0-44.0); MEAN CORPUSCULAR HGB CONC 34 g/dl (31.0-36.0); MEAN CORPUSCULAR VOLUME 89 fL (80-96); MONOCYTES # (AUTO) 0.5 /CMM (0.1-1.30); MONOCYTES % (AUTO) 6.8 % (2.0-12.0); NEUTROPHILS # (AUTO) 4.4 /CMM (1.8-8.9); NEUTROPHILS % (AUTO) 66.1 % (43.0-81.0); PLATELET COUNT (AUTO) 276 /CMM (150-450); RED BLOOD CELL COUNT(AUTO) 4.79 MIL/uL (4.5-6.0); WHITE BLOOD COUNT (AUTO) 6.7 K/uL (4.3-11.0)
[2019-05-26 13:09] LABS: CALCIUM, SERUM 8.9 mg/dL (8.5-10.1); CARBON DIOXIDE 20 mmol/L (21-32); CHLORIDE 105 mmol/L (98-107); CREATININE 0.9 mg/dL (0.6-1.3); GLUCOSE 113 mg/dL (74-106); SODIUM SERUM 138 mmol/L (136-145); UREA NITROGEN, BLOOD 12 mg/dL (7-18)
[2019-05-26 13:16] LABS: ALANINE AMINOTRANSFERASE 19 U/L (12-78); ALBUMIN 3.5 g/dL (3.4-5.0); ALKALINE PHOSPHATASE 92 U/L (46-116); ASPARTATE AMINOTRANSFERASE 16 U/L (15-37); BILIRUBIN,DIRECT 0.1 mg/dL (0.0-0.2); BILIRUBIN,TOTAL 0.7 mg/dL (0.2-1.0); TOTAL PROTEIN, SERUM 7.2 g/dL (6.4-8.2)
[2019-05-26 13:17] LABS: ACETAMINOPHEN 0 ug/ml (10-30); ALCOHOL, BLOOD 1 mg/dL (0-0); SALICYLATE < 2.0 mg/dL (2.8-20.0)
[2019-05-26] MEDS ORDERED: LORAZEPAM 1 MG TABLET PO ONE (14:00)
[2019-05-26] MEDS ORDERED: LORAZEPAM 1 MG TABLET ONE (14:00)
[2019-05-26 14:44] LABS: APPEARANCE,URINE Clear (CLEAR); BILIRUBIN,URINE Negative (NEGATIVE); BLOOD, URINE Trace-lysed Ery/uL (NEGATIVE); COLOR,URINE Yellow (YELLOW); KETONES,URINE 15 (NEGATIVE); LEUKOCYTE ESTERASE ,URINE Trace (NEGATIVE); NITRITE, URINE Negative (NEGATIVE); PH,URINE 8.5 (5.0-8.0); PROTEIN,URINE Negative (NEGATIVE); UGLUCOSE Negative (NEGATIVE)
--- NOTE | 2019-05-26 14:56 | NUR ---
ISHMAEL TRAVIS [phone] ETA 60 MINS
[2019-05-26 15:01] LABS: BACTERIA,URINE Few /HPF (None Seen); RBC,URINE 0-2 /HPF (0-2); SQUAMOUS EPITHELIAL CELL,UR Few /HPF (None Seen)
--- NOTE | 2019-05-26 17:26 | NUR ---
gypsy rn at bedside for psych eval.
--- NOTE | 2019-05-26 20:20 | NUR ---
SPOKE TO RETAIL ADMINISTRATIVE ASSISTANT. WILL CALL BACK WITH ROOM ASSIGNMENT
--- NOTE | 2019-05-26 20:26 | NUR ---
PT ACC[facility]PTED TO [facility]. UNIT [address]. DR SANTAMARIA # FOR REPORT [phone]
--- NOTE | 2019-05-26 22:05 | NUR ---
REPORT GIVEN TO [facility].
[2019-05-26 22:22] VITALS: BP 112/77
== END 2019-05-26 22:23 | disposition home or self-care (01) ==
LOC: ER 12:18
DX: R45.851 Suicidal ideations (principal); R31.9 Hematuria, unspecified; F32.9 Major depressive disorder, single episode, unspecified; G43.909 Migraine, unspecified, not intractable, without status migrainosus; K21.9 Gastro-esophageal reflux disease without esophagitis; K58.9 Irritable bowel syndrome, unspecified; M06.9 Rheumatoid arthritis, unspecified; M81.0 Age-related osteoporosis without current pathological fracture; F90.9 Attention-deficit hyperactivity disorder, unspecified type; F17.200 Nicotine dependence, unspecified, uncomplicated; Z88.8 Allergy status to other drugs, medicaments and biological substances; Z79.899 Other long term (current) drug therapy
CPT/HCPCS: 36415; 80048; 80076; 80305; 80307; 80329; 81001; 85025; 99284; G0480; 81000-TC

== ENCOUNTER 2019-06-02 12:00 | Emergency (ER) | payer OTHER ==
[~2019-06-02] VITALS: Ht 170.2 cm; Wt 86.2 kg
[2019-06-02 13:01] LABS: APPEARANCE,URINE Clear (CLEAR); BILIRUBIN,URINE Negative (NEGATIVE); BLOOD, URINE Negative Ery/uL (NEGATIVE); COLOR,URINE Yellow (YELLOW); KETONES,URINE Negative (NEGATIVE); LEUKOCYTE ESTERASE ,URINE Negative (NEGATIVE); NITRITE, URINE Negative (NEGATIVE); PROTEIN,URINE Negative (NEGATIVE); UGLUCOSE Negative (NEGATIVE); UROBILINOGEN,URINE 0.2 EU/dL (0.2)
[2019-06-02 13:11] LABS: BASOPHILS # (AUTO) 0.1 /CMM (0.0-0.2); BASOPHILS % (AUTO) 0.7 % (0.0-2.0); EOSINOPHILS % (AUTO) 1.6 % (0.0-6.0); HEMATOCRIT 44 % (39-51); HEMOGLOBIN 15.4 g/dL (13.5-17.5); LYMPHOCYTES # (AUTO) 2.6 /CMM (0.8-4.8); MEAN CORPUSCULAR HGB CONC 35 g/dl (31.0-36.0); MEAN CORPUSCULAR VOLUME 89 fL (80-96); MONOCYTES # (AUTO) 0.6 /CMM (0.1-1.30); MONOCYTES % (AUTO) 6.3 % (2.0-12.0); NEUTROPHILS # (AUTO) 5.7 /CMM (1.8-8.9); NEUTROPHILS % (AUTO) 62.4 % (43.0-81.0); PLATELET COUNT (AUTO) 301 /CMM (150-450); RED BLOOD CELL COUNT(AUTO) 4.98 MIL/uL (4.5-6.0); WHITE BLOOD COUNT (AUTO) 9.1 K/uL (4.3-11.0)
[2019-06-02 13:22] LABS: CALCIUM, SERUM 9.3 mg/dL (8.5-10.1); CARBON DIOXIDE 23 mmol/L (21-32); CHLORIDE 104 mmol/L (98-107); CREATININE 0.9 mg/dL (0.6-1.3); GLUCOSE 99 mg/dL (74-106); POTASSIUM 3.7 mmol/L (3.5-5.1); SODIUM SERUM 139 mmol/L (136-145); UREA NITROGEN, BLOOD 11 mg/dL (7-18)
[2019-06-02 13:28] LABS: ACETAMINOPHEN < 2 ug/ml (10-30); ALANINE AMINOTRANSFERASE 21 U/L (12-78); ALBUMIN 3.8 g/dL (3.4-5.0); ALKALINE PHOSPHATASE 102 U/L (46-116); ASPARTATE AMINOTRANSFERASE 17 U/L (15-37); BILIRUBIN,DIRECT 0.1 mg/dL (0.0-0.2); BILIRUBIN,TOTAL 0.9 mg/dL (0.2-1.0); SALICYLATE 1.3 mg/dL (2.8-20.0); TOTAL PROTEIN, SERUM 7.5 g/dL (6.4-8.2)
[2019-06-02 13:29] LABS: ALCOHOL, BLOOD < 3 mg/dL (0-0)
--- NOTE | 2019-06-02 15:00 | NUR ---
CALLED [facility] FOR BED AVAILABILITY, WILL FAX CLINICALS AND FACESHEET.
--- NOTE | 2019-06-02 15:07 | NUR ---
FAXED INFO TO [facility].
--- NOTE | 2019-06-02 15:45 | NUR ---
CALLED [facility] FOR CONFIRMATION OF RECEIVING CLINICALS. THEY HAVE INFO AND WILL GET BACK TO US FOR AVAILABILITY.
--- NOTE | 2019-06-02 17:40 | NUR ---
CALLED [facility] FOR TRANSFER TO [facility]. ETA 2100.
--- NOTE | 2019-06-02 17:40 | NUR ---
TRIP NUMBER IS [id number].
--- NOTE | 2019-06-02 19:00 | NUR ---
Patient is resting comfortably in bed with eyes closed. Easily aroused. VSS
--- NOTE | 2019-06-02 19:11 | NUR ---
[facility] CALLED. GOING TO BE DELAYED 10-15 MINUTES.
[2019-06-02 19:18] VITALS: BP 137/77
[2019-06-02] MEDS ORDERED: ACETAMINOPHEN ES 500 MG TABLET ONE (19:52)
[2019-06-02] MEDS ORDERED: ACETAMINOPHEN 325 MG TABLET PO ONE (20:00)
== END 2019-06-02 20:59 | disposition short-term general hospital (02) ==
LOC: ER 12:02
DX: R45.851 Suicidal ideations (principal); F15.10 Other stimulant abuse, uncomplicated; F90.9 Attention-deficit hyperactivity disorder, unspecified type; F41.9 Anxiety disorder, unspecified; F32.9 Major depressive disorder, single episode, unspecified; G43.909 Migraine, unspecified, not intractable, without status migrainosus; K21.9 Gastro-esophageal reflux disease without esophagitis; K58.9 Irritable bowel syndrome, unspecified; F17.200 Nicotine dependence, unspecified, uncomplicated; Z88.8 Allergy status to other drugs, medicaments and biological substances; Z88.9 Allergy status to unspecified drugs, medicaments and biological substances; Z79.899 Other long term (current) drug therapy
CPT/HCPCS: 36415; 80048; 80076; 80305; 80307; 80329; 81001; 85025; 99285; G0480; 81000-TC

== ENCOUNTER 2019-06-12 11:04 | Emergency (ER) | payer OTHER ==
[~2019-06-12] VITALS: Ht 170.2 cm; Wt 86.2 kg
--- NOTE | 2019-06-12 11:20 | NUR ---
pt self presents to ed. ambulatory to er bed 14. c/o depression for "days." suicidal w/ plan to overdose on heroin since yesterday. pt states attempted overdose to ativan and cutting wrist 20 years ago. pt gowned. belongins to safe locker and security at bedside for wanding. 1:1 sitter at bedside. awaiting md sorensen.
--- NOTE | 2019-06-12 11:29 | NUR ---
nereyda director inpatient headache program at bedside for eval.
[2019-06-12] MEDS ORDERED: LORAZEPAM 1 MG TABLET ONE (11:40)
[2019-06-12] MEDS: LORAZEPAM 1 MG TABLET PO ONE (11:44)
[2019-06-12 11:46] LABS: APPEARANCE,URINE Clear (CLEAR); BILIRUBIN,URINE Negative (NEGATIVE); BLOOD, URINE Negative Ery/uL (NEGATIVE); COLOR,URINE Yellow (YELLOW); KETONES,URINE Negative (NEGATIVE); LEUKOCYTE ESTERASE ,URINE Trace (NEGATIVE); NITRITE, URINE Negative (NEGATIVE); PROTEIN,URINE Negative (NEGATIVE); UGLUCOSE Negative (NEGATIVE); UROBILINOGEN,URINE 0.2 EU/dL (0.2)
--- NOTE | 2019-06-12 11:54 | NUR ---
center medical and lab director at bedside for blood draw.
[2019-06-12 11:57] LABS: BACTERIA,URINE None seen /HPF (None Seen); RBC,URINE 0-1 /HPF (0-2); SQUAMOUS EPITHELIAL CELL,UR Rare /HPF (None Seen)
[2019-06-12 11:58] LABS: BASOPHILS % (AUTO) 0.5 % (0.0-2.0); EOSINOPHILS % (AUTO) 2.2 % (0.0-6.0); HEMATOCRIT 42 % (39-51); HEMOGLOBIN 14.3 g/dL (13.5-17.5); LYMPHOCYTES # (AUTO) 1.9 /CMM (0.8-4.8); LYMPHOCYTES % (AUTO) 24.5 % (20.0-44.0); MEAN CORPUSCULAR HGB CONC 34 g/dl (31.0-36.0); MEAN CORPUSCULAR VOLUME 89 fL (80-96); MONOCYTES # (AUTO) 0.5 /CMM (0.1-1.30); MONOCYTES % (AUTO) 6.1 % (2.0-12.0); NEUTROPHILS % (AUTO) 66.7 % (43.0-81.0); PLATELET COUNT (AUTO) 320 /CMM (150-450); RED BLOOD CELL COUNT(AUTO) 4.72 MIL/uL (4.5-6.0); WHITE BLOOD COUNT (AUTO) 7.6 K/uL (4.3-11.0)
[2019-06-12 12:07] LABS: CALCIUM, SERUM 9.2 mg/dL (8.5-10.1); CARBON DIOXIDE 28 mmol/L (21-32); CHLORIDE 106 mmol/L (98-107); GLUCOSE 142 mg/dL (74-106); POTASSIUM 3.9 mmol/L (3.5-5.1); SODIUM SERUM 141 mmol/L (136-145); UREA NITROGEN, BLOOD 14 mg/dL (7-18)
[2019-06-12 12:12] LABS: ALANINE AMINOTRANSFERASE 22 U/L (12-78); ALBUMIN 3.3 g/dL (3.4-5.0); ALCOHOL, BLOOD < 3 mg/dL (0-0); ALKALINE PHOSPHATASE 93 U/L (46-116); ASPARTATE AMINOTRANSFERASE 17 U/L (15-37); BILIRUBIN,DIRECT 0.1 mg/dL (0.0-0.2); BILIRUBIN,TOTAL 0.5 mg/dL (0.2-1.0); TOTAL PROTEIN, SERUM 7.1 g/dL (6.4-8.2)
[2019-06-12 12:13] LABS: ACETAMINOPHEN 0 ug/ml (10-30); SALICYLATE 0.8 mg/dL (2.8-20.0)
--- NOTE | 2019-06-12 12:41 | NUR ---
HOGSHEAD WEIGHER faxed clinicals to [facility] intake for voluntary psychiatric admission. HOGSHEAD WEIGHER contacted Dmitry at [facility] who informed HOGSHEAD WEIGHER they do have a bed for the pt. Temporary bed assigned is 218A. [facility] to confirm bed assignment and accepting doctor.
--- NOTE | 2019-06-12 12:45 | NUR ---
RECREATION CLERK received call back from [facility]. Pt has been accepted under Dr. Mtz and room has been changed to 211/A
--- NOTE | 2019-06-12 13:42 | NUR ---
Social service consult requested by MD for suicidal ideations with a plan. Per chart review and MD notes, pt is a 59-year-old male who presented to the emergency department stating he feels suicidal. He states he has a plan to overdose on heroin. Pt. stated to MD, that his friends have not been very supportive of him provoking these feelings. LINE MAINTENANCE TECHNICIAN met with the pt bedside. Pt is alert and oriented x 3. LINE MAINTENANCE TECHNICIAN is familiar with the pt from previous ED visits. Pt reports to have a significant history for depression, and previous suicide attempts. Pt uses methamphetamine, drinks alcohol, and smokes cigarettes. Pt reports to have psychiatric diagnosis of Depression and ADHD. Pt is currently stating he is suicidal and plans to OD on heroin. Pt is willing to go to [facility] for voluntary psychiatric admission. LINE MAINTENANCE TECHNICIAN referred pt to [facility] and pt. has been accepted. Pending toxicology and medically cleared documentation to be faxed to [facility]. Jackeline in ED will be faxing the required documentation to [facility] intake.
--- NOTE | 2019-06-12 13:59 | NUR ---
patient resting comfortably. vss.
--- NOTE | 2019-06-12 14:37 | NUR ---
FLOWER SHOP MANAGER received call from CJ at [facility], pt has been accepted and report needs to be called to . FLOWER SHOP MANAGER updated Lorne in ED.
--- NOTE | 2019-06-12 15:30 | NUR ---
PT SLEEPING, ON MONITOR. VSS. WILL CONTINUE TO MONITOR.
--- NOTE | 2019-06-12 15:46 | NUR ---
report given to tommy at counts include 234 beds at the [facility]. pt going to unit 1. awaiting transport ambulance.
--- NOTE | 2019-06-12 15:50 | NUR ---
CALLED [id number], M[facility]ER TO [facility] REF#[id number]
--- NOTE | 2019-06-12 17:54 | NUR ---
[facility] ETA 1800
[2019-06-12 17:59] VITALS: BP 115/72
== END 2019-06-12 18:39 ==
LOC: ER 11:04
DX: R45.851 Suicidal ideations (principal); F19.10 Other psychoactive substance abuse, uncomplicated; G43.909 Migraine, unspecified, not intractable, without status migrainosus; K21.9 Gastro-esophageal reflux disease without esophagitis; K58.9 Irritable bowel syndrome, unspecified; M06.9 Rheumatoid arthritis, unspecified; M81.0 Age-related osteoporosis without current pathological fracture; F90.9 Attention-deficit hyperactivity disorder, unspecified type; F32.9 Major depressive disorder, single episode, unspecified; F17.210 Nicotine dependence, cigarettes, uncomplicated; Z88.8 Allergy status to other drugs, medicaments and biological substances; Z79.899 Other long term (current) drug therapy
CPT/HCPCS: 36415; 80048; 80076; 80305; 80307; 80329; 81001; 85025; 99285; G0480; 81000-TC

== ENCOUNTER 2019-06-21 03:03 | Emergency (ER) | payer OTHER ==
[~2019-06-21] VITALS: Ht 170.2 cm; Wt 86.2 kg
--- NOTE | 2019-06-21 03:05 | NUR ---
TO ER BED 13 AMBULATROY C/O SI WITH PLAN TO OVERDOSE ON HEROIN. PT DENIES HI. ADMITS TO METH USE LAST NIGHT. PT AAOX4 NO ACUTE DISTRESS NOTED, RESP EVEN AND UNLABORED. PT CALM AND COOPERATIVE AT THIS TIME. PLACE PT ON HOSPITAL GOWN, ALL BELONGINGS PLACED ON BELONGING BAGS AND PLACED IN HOSPITAL LOCKER. 1:1 SITTER AT BEDSIDE. PENDING ER MD ALTMAN.
--- NOTE | 2019-06-21 04:15 | NUR ---
URINE SAMPLE COLLECTED AND SENT TO LAB.
[2019-06-21 04:35] LABS: BASOPHILS % (AUTO) 0.6 % (0.0-2.0); EOSINOPHILS % (AUTO) 2.6 % (0.0-6.0); HEMATOCRIT 46 % (39-51); LYMPHOCYTES # (AUTO) 2.7 /CMM (0.8-4.8); LYMPHOCYTES % (AUTO) 33.2 % (20.0-44.0); MEAN CORPUSCULAR HGB CONC 35 g/dl (31.0-36.0); MEAN CORPUSCULAR VOLUME 89 fL (80-96); MONOCYTES # (AUTO) 0.9 /CMM (0.1-1.30); MONOCYTES % (AUTO) 10.7 % (2.0-12.0); NEUTROPHILS # (AUTO) 4.3 /CMM (1.8-8.9); NEUTROPHILS % (AUTO) 52.9 % (43.0-81.0); PLATELET COUNT (AUTO) 276 /CMM (150-450); RED BLOOD CELL COUNT(AUTO) 5.21 MIL/uL (4.5-6.0); WHITE BLOOD COUNT (AUTO) 8.1 K/uL (4.3-11.0)
[2019-06-21 04:42] LABS: APPEARANCE,URINE Clear (CLEAR); BILIRUBIN,URINE Negative (NEGATIVE); BLOOD, URINE Negative Ery/uL (NEGATIVE); COLOR,URINE Yellow (YELLOW); KETONES,URINE Negative (NEGATIVE); LEUKOCYTE ESTERASE ,URINE Negative (NEGATIVE); NITRITE, URINE Negative (NEGATIVE); PH,URINE 5.5 (5.0-8.0); PROTEIN,URINE Negative (NEGATIVE); UGLUCOSE Negative (NEGATIVE); UROBILINOGEN,URINE 0.2 EU/dL (0.2)
[2019-06-21 04:45] LABS: CALCIUM, SERUM 9.1 mg/dL (8.5-10.1); CARBON DIOXIDE 25 mmol/L (21-32); CHLORIDE 103 mmol/L (98-107); CREATININE 0.9 mg/dL (0.6-1.3); GLUCOSE 120 mg/dL (74-106); POTASSIUM 3.8 mmol/L (3.5-5.1); SODIUM SERUM 138 mmol/L (136-145); UREA NITROGEN, BLOOD 13 mg/dL (7-18)
[2019-06-21 04:50] LABS: ALANINE AMINOTRANSFERASE 33 U/L (12-78); ALBUMIN 3.9 g/dL (3.4-5.0); ALCOHOL, BLOOD < 3 mg/dL (0-0); ALKALINE PHOSPHATASE 96 U/L (46-116); ASPARTATE AMINOTRANSFERASE 25 U/L (15-37); BILIRUBIN,DIRECT 0.1 mg/dL (0.0-0.2); BILIRUBIN,TOTAL 0.9 mg/dL (0.2-1.0); TOTAL PROTEIN, SERUM 7.6 g/dL (6.4-8.2)
[2019-06-21 04:51] LABS: ACETAMINOPHEN 0 ug/ml (10-30)
--- NOTE | 2019-06-21 06:11 | NUR ---
PT ACC[facility]PTED [facility] ACCEPTING MD: DR. SANTAMARIA UNIT 1 NUMBER FOR REPORT: [phone]
--- NOTE | 2019-06-21 06:32 | NUR ---
CALLED CALL THE CAR FOR TRANSPORTATION. VASILE [phone] [facility]. TRIP #[id number]
--- NOTE | 2019-06-21 07:28 | NUR ---
ATTEMPTED TO GIVE REPORT TO [facility]. CHANGE OF SHIFT, REQUESTING TO CALL BACK LATER
--- NOTE | 2019-06-21 08:44 | NUR ---
REPORT GIVEN TO UBALDO NEGRETE OF [facility].
--- NOTE | 2019-06-21 08:46 | NUR ---
REPORT GIVEN TO EMT FOR PT TRANSFER TO [facility].
[2019-06-21 08:59] VITALS: BP 109/77
== END 2019-06-21 09:00 ==
LOC: ER 03:05
DX: R45.851 Suicidal ideations (principal); F15.10 Other stimulant abuse, uncomplicated; F90.9 Attention-deficit hyperactivity disorder, unspecified type; F32.9 Major depressive disorder, single episode, unspecified; G43.909 Migraine, unspecified, not intractable, without status migrainosus; F17.200 Nicotine dependence, unspecified, uncomplicated; Z79.899 Other long term (current) drug therapy; Z88.8 Allergy status to other drugs, medicaments and biological substances; Z88.9 Allergy status to unspecified drugs, medicaments and biological substances
CPT/HCPCS: 36415; 80048; 80076; 80305; 80307; 80329; 81001; 85025; 99285; G0480; 81000-TC

== ENCOUNTER 2019-06-29 15:57 | Emergency (ER) | payer OTHER ==
[~2019-06-29] VITALS: Ht 170.2 cm; Wt 86.2 kg
[2019-06-29 16:45] VITALS: BP 108/61
--- NOTE | 2019-06-29 17:02 | NUR ---
salvage laborer at bedside for blood draw.
[2019-06-29 17:11] LABS: BASOPHILS % (AUTO) 0.5 % (0.0-2.0); EOSINOPHILS % (AUTO) 1.2 % (0.0-6.0); HEMATOCRIT 46 % (39-51); HEMOGLOBIN 15.3 g/dL (13.5-17.5); LYMPHOCYTES # (AUTO) 2.3 /CMM (0.8-4.8); LYMPHOCYTES % (AUTO) 31.7 % (20.0-44.0); MEAN CORPUSCULAR HGB CONC 34 g/dl (31.0-36.0); MEAN CORPUSCULAR VOLUME 89 fL (80-96); MONOCYTES # (AUTO) 0.6 /CMM (0.1-1.30); MONOCYTES % (AUTO) 7.8 % (2.0-12.0); NEUTROPHILS # (AUTO) 4.3 /CMM (1.8-8.9); NEUTROPHILS % (AUTO) 58.8 % (43.0-81.0); PLATELET COUNT (AUTO) 267 /CMM (150-450); RED BLOOD CELL COUNT(AUTO) 5.13 MIL/uL (4.5-6.0); WHITE BLOOD COUNT (AUTO) 7.4 K/uL (4.3-11.0)
[2019-06-29] MEDS ORDERED: LORAZEPAM 1 MG TABLET ONE (17:18)
[2019-06-29 17:24] LABS: ALANINE AMINOTRANSFERASE 31 U/L (12-78); ALBUMIN 4.1 g/dL (3.4-5.0); ALCOHOL, BLOOD < 3 mg/dL (0-0); ALKALINE PHOSPHATASE 95 U/L (46-116); ASPARTATE AMINOTRANSFERASE 18 U/L (15-37); BILIRUBIN,DIRECT 0.2 mg/dL (0.0-0.2); BILIRUBIN,TOTAL 1.1 mg/dL (0.2-1.0); CALCIUM, SERUM 9.3 mg/dL (8.5-10.1); CARBON DIOXIDE 24 mmol/L (21-32); CHLORIDE 104 mmol/L (98-107); CREATININE 0.8 mg/dL (0.6-1.3); GLUCOSE 102 mg/dL (74-106); POTASSIUM 3.9 mmol/L (3.5-5.1); SODIUM SERUM 140 mmol/L (136-145); TOTAL PROTEIN, SERUM 7.8 g/dL (6.4-8.2); UREA NITROGEN, BLOOD 15 mg/dL (7-18)
[2019-06-29 17:25] LABS: ACETAMINOPHEN < 2 ug/ml (10-30); SALICYLATE 0.8 mg/dL (2.8-20.0)
[2019-06-29] MEDS ORDERED: LORAZEPAM 1 MG TABLET PO ONE (17:30)
[2019-06-29 19:05] LABS: APPEARANCE,URINE Clear (CLEAR); BILIRUBIN,URINE SMALL (NEGATIVE); BLOOD, URINE Negative Ery/uL (NEGATIVE); COLOR,URINE Yellow (YELLOW); KETONES,URINE Trace (NEGATIVE); LEUKOCYTE ESTERASE ,URINE Negative (NEGATIVE); NITRITE, URINE Negative (NEGATIVE); PH,URINE 5.5 (5.0-8.0); PROTEIN,URINE Negative (NEGATIVE); UGLUCOSE Negative (NEGATIVE); UROBILINOGEN,URINE 0.2 EU/dL (0.2)
[2019-06-29 19:20] LABS: SQUAMOUS EPITHELIAL CELL,UR Rare /HPF (None Seen)
[2019-06-29 19:21] LABS: BACTERIA,URINE Rare /HPF (None Seen); RBC,URINE 0-2 /HPF (0-2); WBC,URINE 0-2 /HPF (0-3)
--- NOTE | 2019-06-29 19:49 | NUR ---
ASSUMED CARE. RECEIVED REPORT FROM DINESH CONNER. PT RESTING QUIETLY, NO ACUTE DISTRESS NOTED, RESP EVEN AND UNLABORED. PT CALMMAND COOPERATIVE AT THIS TIME. CALL LIGHT WITHIN REACH. 1:1 SITTER AT BEDSIDE. WILL CONTINUE TO MONITOR PT CLOSELY.
--- NOTE | 2019-06-29 20:14 | NUR ---
FAXED CLINICALS TO [facility]
--- NOTE | 2019-06-29 21:18 | NUR ---
RE-FAXED CLINICALS TO [facility] PER INTAKE REQUEST
--- NOTE | 2019-06-29 22:01 | NUR ---
TRANSFER INFO PER TYLER WHALEN PT WILL GO TO [facility] UNIT 2, RN FOR REPORT [phone], DR SANTAMARIA ACCEPTING, [id number] ETA WILL CALL BACK IN 30-45MIN RES#[id number]
--- NOTE | 2019-06-29 23:15 | NUR ---
[facility] ETA [phone]
--- NOTE | 2019-06-29 23:31 | NUR ---
REPORT CALLED TO [facility]. AWAITING TRANSPORT.
--- NOTE | 2019-06-29 23:43 | NUR ---
TRANSPORT AT BEDSIDE REPORT GIVEN TO EMT.
== END 2019-06-29 23:45 ==
LOC: ER 16:02
DX: R45.851 Suicidal ideations (principal); F15.10 Other stimulant abuse, uncomplicated; F32.9 Major depressive disorder, single episode, unspecified; F41.9 Anxiety disorder, unspecified; G43.909 Migraine, unspecified, not intractable, without status migrainosus; K21.9 Gastro-esophageal reflux disease without esophagitis; F17.200 Nicotine dependence, unspecified, uncomplicated; Z79.899 Other long term (current) drug therapy; Z88.8 Allergy status to other drugs, medicaments and biological substances; Z88.9 Allergy status to unspecified drugs, medicaments and biological substances
CPT/HCPCS: 36415; 80048; 80076; 80305; 80307; 80329; 81001; 85025; 99285; G0480; 81000-TC

== ENCOUNTER 2019-07-11 18:04 | Emergency (ER) | payer OTHER ==
[~2019-07-11] VITALS: Ht 165.1 cm; Wt 82.6 kg
--- NOTE | 2019-07-11 18:30 | NUR ---
SUICIDAL WITH PLAN TO USE HEROIN. PATIENT A/OX4, BREATHING EVEN AND UNLABORED, NOS OB NOTED, NEEDS ATTENDED. KEPT COMFORTABLE. CHANGED INTO GOWN, URINE COLLECTED AND WANDED.
[2019-07-11] MEDS ORDERED: LORAZEPAM 1 MG TABLET ONE (18:58)
[2019-07-11 19:00] LABS: BASOPHILS % (AUTO) 0.4 % (0.0-2.0); EOSINOPHILS % (AUTO) 0.4 % (0.0-6.0); HEMATOCRIT 44 % (39-51); LYMPHOCYTES # (AUTO) 2.1 /CMM (0.8-4.8); MEAN CORPUSCULAR HGB CONC 34 g/dl (31.0-36.0); MEAN CORPUSCULAR VOLUME 89 fL (80-96); MONOCYTES # (AUTO) 0.6 /CMM (0.1-1.30); MONOCYTES % (AUTO) 6.9 % (2.0-12.0); NEUTROPHILS # (AUTO) 6.4 /CMM (1.8-8.9); NEUTROPHILS % (AUTO) 69.3 % (43.0-81.0); PLATELET COUNT (AUTO) 234 /CMM (150-450); RED BLOOD CELL COUNT(AUTO) 4.94 MIL/uL (4.5-6.0); WHITE BLOOD COUNT (AUTO) 9.3 K/uL (4.3-11.0)
[2019-07-11] MEDS: LORAZEPAM 1 MG TABLET PO ONE (19:02)
[2019-07-11 19:06] LABS: APPEARANCE,URINE Clear (CLEAR); BILIRUBIN,URINE Negative (NEGATIVE); BLOOD, URINE Negative Ery/uL (NEGATIVE); COLOR,URINE Yellow (YELLOW); KETONES,URINE Negative (NEGATIVE); LEUKOCYTE ESTERASE ,URINE Negative (NEGATIVE); NITRITE, URINE Negative (NEGATIVE); PH,URINE 6.5 (5.0-8.0); PROTEIN,URINE Negative (NEGATIVE); UGLUCOSE Negative (NEGATIVE); UROBILINOGEN,URINE 0.2 EU/dL (0.2)
[2019-07-11 19:07] LABS: CALCIUM, SERUM 8.8 mg/dL (8.5-10.1); CARBON DIOXIDE 22 mmol/L (21-32); CHLORIDE 106 mmol/L (98-107); CREATININE 0.9 mg/dL (0.6-1.3); GLUCOSE 110 mg/dL (74-106); POTASSIUM 3.9 mmol/L (3.5-5.1); SODIUM SERUM 140 mmol/L (136-145); UREA NITROGEN, BLOOD 12 mg/dL (7-18)
[2019-07-11 19:13] LABS: ALANINE AMINOTRANSFERASE 19 U/L (12-78); ALBUMIN 3.7 g/dL (3.4-5.0); ALCOHOL, BLOOD < 3 mg/dL (0-0); ALKALINE PHOSPHATASE 95 U/L (46-116); ASPARTATE AMINOTRANSFERASE 13 U/L (15-37); BILIRUBIN,DIRECT 0.1 mg/dL (0.0-0.2); BILIRUBIN,TOTAL 0.3 mg/dL (0.2-1.0); TOTAL PROTEIN, SERUM 7.2 g/dL (6.4-8.2)
[2019-07-11 19:18] LABS: SALICYLATE 2.5 mg/dL (2.8-20.0)
[2019-07-11 19:21] LABS: ACETAMINOPHEN < 10 ug/ml (10-30)
--- NOTE | 2019-07-11 19:59 | NUR ---
CLINICAL INFORMATION FAXED TO [facility]
--- NOTE | 2019-07-11 21:59 | NUR ---
TRANSFER INFORMATION: PT ACCEPTED TO [facility] ACCEPTING MD: DR. UMANZOR NUMBER FOR REPORT: [phone] EXT [phone]
--- NOTE | 2019-07-11 22:05 | NUR ---
CALLED CALL THE CAR FOR TRANSPORTATION. PENDING ETA. CONFIRMATION NUMBER [id number]
--- NOTE | 2019-07-11 22:19 | NUR ---
REPORT GIVEN TO ANGELES CONNER FOR [facility].
--- NOTE | 2019-07-11 23:47 | NUR ---
CALLED CALL THE CAR FOR UPDATE, STILL PENDING TRANSPORTATION ETA
--- NOTE | 2019-07-12 00:37 | NUR ---
CALLED CALL THE CAR FOR UPDATE, PER JESS STILL NO AMBULANCE AVAIALABLE AT THIS TIME.
[2019-07-12] MEDS ORDERED: diphenhydrAMINE HCL 50 MG CAPSULE ONE (01:14)
--- NOTE | 2019-07-12 01:14 | NUR ---
PT W/ C/O ITCHINESS. DR WALDRON MADE AWARE W/ A NEW ORDER FOR BENADRYL 50MG PO ONCE.
[2019-07-12] MEDS: diphenhydrAMINE HCL 25 MG CAPSULE PO ONE (01:15)
--- NOTE | 2019-07-12 01:20 | NUR ---
CALLED [facility] FOR TRANSPORTATION. NO AMBULANCE AVAIALBLE UNTIL 0600
--- NOTE | 2019-07-12 01:26 | NUR ---
CALLED [facility] FOR TRANSPORTATION ETA 45MIN TRIP #[id number]
--- NOTE | 2019-07-12 02:15 | NUR ---
REPORT GIVEN TO [facility] FOR TRANSPORTATION [facility]
[2019-07-12 02:28] VITALS: BP 95/57
== END 2019-07-12 02:30 | disposition short-term general hospital (02) ==
LOC: ER 18:04
DX: F32.9 Major depressive disorder, single episode, unspecified (principal); R45.851 Suicidal ideations; F19.10 Other psychoactive substance abuse, uncomplicated; F41.9 Anxiety disorder, unspecified; G43.909 Migraine, unspecified, not intractable, without status migrainosus; K21.9 Gastro-esophageal reflux disease without esophagitis; F17.200 Nicotine dependence, unspecified, uncomplicated; Z79.899 Other long term (current) drug therapy; Z88.8 Allergy status to other drugs, medicaments and biological substances; Z88.9 Allergy status to unspecified drugs, medicaments and biological substances
CPT/HCPCS: 36415; 80048; 80076; 80305; 80307; 80329; 81001; 85025; 99285; G0480; Q0163; 81000-TC

== ENCOUNTER 2019-07-17 23:54 | Emergency (ER) | payer OTHER ==
[~2019-07-17] VITALS: Ht 170.2 cm; Wt 63.5 kg
--- NOTE | 2019-07-18 00:45 | NUR ---
BIBSELF C/O SUICIDAL IDEATION WITH PLAN TO OVERDOSE ON HEROINE. PT DENIES HI OR HALLUCINATIONS AT THIS TIME. PT AAOX4. CALM AND COOPERATIVE. AMBULATORY WITH STEADY GAIT. SKIN INTACT. VITAL SIGNS STABLE. NO ACUTE DISTRESS NOTED AT THIS TIME. WILL CONTINUE TO MONITOR
[2019-07-18] MEDS ORDERED: OLANZAPINE 5 MG TABLET PO ONE (01:00)
[2019-07-18 01:04] LABS: BASOPHILS # (AUTO) 0.1 /CMM (0.0-0.2); BASOPHILS % (AUTO) 0.6 % (0.0-2.0); EOSINOPHILS % (AUTO) 2.2 % (0.0-6.0); HEMATOCRIT 46 % (39-51); HEMOGLOBIN 15.5 g/dL (13.5-17.5); LYMPHOCYTES # (AUTO) 3.4 /CMM (0.8-4.8); LYMPHOCYTES % (AUTO) 37.9 % (20.0-44.0); MEAN CORPUSCULAR HGB CONC 34 g/dl (31.0-36.0); MEAN CORPUSCULAR VOLUME 91 fL (80-96); MONOCYTES # (AUTO) 0.9 /CMM (0.1-1.30); MONOCYTES % (AUTO) 10.4 % (2.0-12.0); NEUTROPHILS # (AUTO) 4.4 /CMM (1.8-8.9); NEUTROPHILS % (AUTO) 48.9 % (43.0-81.0); PLATELET COUNT (AUTO) 282 /CMM (150-450); RED BLOOD CELL COUNT(AUTO) 5.04 MIL/uL (4.5-6.0)
[2019-07-18 01:14] LABS: CARBON DIOXIDE 25 mmol/L (21-32); CHLORIDE 104 mmol/L (98-107); CREATININE 0.9 mg/dL (0.6-1.3); GLUCOSE 88 mg/dL (74-106); SODIUM SERUM 140 mmol/L (136-145); UREA NITROGEN, BLOOD 14 mg/dL (7-18)
[2019-07-18 01:29] LABS: ACETAMINOPHEN 0 ug/ml (10-30); ALANINE AMINOTRANSFERASE 29 U/L (12-78); ALCOHOL, BLOOD < 3 mg/dL (0-0); ALKALINE PHOSPHATASE 103 U/L (46-116); ASPARTATE AMINOTRANSFERASE 24 U/L (15-37); BILIRUBIN,DIRECT 0.1 mg/dL (0.0-0.2); BILIRUBIN,TOTAL 0.6 mg/dL (0.2-1.0)
[2019-07-18] MEDS ORDERED: OLANZAPINE 5 MG TABLET ONE (01:48)
[2019-07-18 02:11] LABS: APPEARANCE,URINE CLEAR (CLEAR); BILIRUBIN,URINE SMALL (NEGATIVE); BLOOD, URINE NEGATIVE Ery/uL (NEGATIVE); COLOR,URINE YELLOW (YELLOW); KETONES,URINE TRACE (NEGATIVE); LEUKOCYTE ESTERASE ,URINE SMALL (NEGATIVE); NITRITE, URINE NEGATIVE (NEGATIVE); PROTEIN,URINE NEGATIVE (NEGATIVE); UGLUCOSE NEGATIVE (NEGATIVE); UROBILINOGEN,URINE 0.2 EU/dL (0.2)
[2019-07-18 02:15] LABS: BACTERIA,URINE Few /HPF (None Seen); SQUAMOUS EPITHELIAL CELL,UR Rare /HPF (None Seen); WBC,URINE 21-50 /HPF (0-3)
[2019-07-18] MEDS ORDERED: LORAZEPAM 1 MG TABLET PO ONE (02:30)
[2019-07-18] MEDS ORDERED: LORAZEPAM 1 MG TABLET ONE (02:39)
--- NOTE | 2019-07-18 03:42 | NUR ---
TRANSFER INFORMATION: PT ACCEPTED TO [facility] ACCPETING MD: DR. UMANZOR NUMBER FOR REPORT: [phone] EXT [phone]
--- NOTE | 2019-07-18 03:49 | NUR ---
CALLED CALL THE CAR FOR TRANSPORTATION. ETA [phone]
--- NOTE | 2019-07-18 03:57 | NUR ---
UPDATE FROM CALL THE CAR, [facility] ETA 1145.
--- NOTE | 2019-07-18 08:00 | NUR ---
Patient given breakfast tray and tolerated well. No distress noted. Ambulatory with steady gait.
--- NOTE | 2019-07-18 11:49 | NUR ---
DEVIN SPOKE WITH JIM AT [facility]. THEY WILL HOLD A BED FOR HIM.
--- NOTE | 2019-07-18 12:07 | NUR ---
NICHELLE was informed by the pt that he does not want to go to [place], where pt has been accepted. NICHELLE contacted [facility] and was informed that they will accept the pt at [place]. Clinicals will be sent by intake to [place] location.
--- NOTE | 2019-07-18 13:32 | NUR ---
RECIEVED A CALL FROM [facility]. PT IS ACCEPTED. NUMBER FOR REPORT. [phone]. [facility] IS THE NURSING SUP. ACCEPTING DOCTORS DR. OLIVER AND DR. CHAVEZ.
--- NOTE | 2019-07-18 13:37 | NUR ---
CALLED [facility] FOR TRANSPORT TO [facility]. ETA 1500.
--- NOTE | 2019-07-18 14:24 | NUR ---
RAIL LOADER REPORT GIVEN TO [facility] TRUCK DRIVING TIME 1500
--- NOTE | 2019-07-18 15:42 | NUR ---
Patient discharged to [facility] in stable condition. Written and verbal after care instructions given. Patient verbalizes understanding of instruction. PATIENT IS AMBULATORY NO DISTRESS. REPORT GIVEN TO EMT REPORT GIVEN TO [facility] TO [facility]
[2019-07-18 15:43] VITALS: BP 102/65
== END 2019-07-18 15:44 ==
LOC: ER 23:55
DX: R45.851 Suicidal ideations (principal); G43.909 Migraine, unspecified, not intractable, without status migrainosus; K21.9 Gastro-esophageal reflux disease without esophagitis; F32.9 Major depressive disorder, single episode, unspecified; F90.9 Attention-deficit hyperactivity disorder, unspecified type; Z79.899 Other long term (current) drug therapy; Z88.8 Allergy status to other drugs, medicaments and biological substances; Z88.9 Allergy status to unspecified drugs, medicaments and biological substances
CPT/HCPCS: 80076; 36415; 80048; 80305; 80307; 80329; 81001; 85025; 87086; 99285; G0480; 81000-TC

== ENCOUNTER 2019-08-13 20:32 | Emergency (ER) | payer OTHER ==
[~2019-08-13] VITALS: Ht 170.2 cm; Wt 86.2 kg
--- NOTE | 2019-08-13 20:32 | NUR ---
TO ER BED 15 AMBULATORY C/O DEPRESSION, SI WITH PLAN TO OD ON HEROIN. PT AAOX4 NO ACUTE DISTRESS NOTED, RESP EVEN AND UNLABORED. PT CALM AND COOPERATIVE AT THIS TIME. PLACE PT ON HOSPITAL GOWN, ALL BELONGINGS REMOVED FROM ROOM AND PLACED IN LOCKED HOSPITAL LOCKER, 1:1 SITTER AT BEDSIDE FOR PAT SAFETY.
[2019-08-13 21:01] LABS: BASOPHILS # (AUTO) 0.1 /CMM (0.0-0.2); BASOPHILS % (AUTO) 0.7 % (0.0-2.0); EOSINOPHILS % (AUTO) 2.3 % (0.0-6.0); HEMATOCRIT 44 % (39-51); HEMOGLOBIN 14.5 g/dL (13.5-17.5); LYMPHOCYTES % (AUTO) 41.1 % (20.0-44.0); MEAN CORPUSCULAR HGB CONC 33 g/dl (31.0-36.0); MEAN CORPUSCULAR VOLUME 90 fL (80-96); MONOCYTES # (AUTO) 0.7 /CMM (0.1-1.30); MONOCYTES % (AUTO) 9.4 % (2.0-12.0); NEUTROPHILS # (AUTO) 3.4 /CMM (1.8-8.9); NEUTROPHILS % (AUTO) 46.5 % (43.0-81.0); PLATELET COUNT (AUTO) 258 /CMM (150-450); RED BLOOD CELL COUNT(AUTO) 4.85 MIL/uL (4.5-6.0); WHITE BLOOD COUNT (AUTO) 7.4 K/uL (4.3-11.0)
--- NOTE | 2019-08-13 21:45 | NUR ---
URINE SAMPLE COLLECTED AND SENT TO LAB.
[2019-08-13 22:00] LABS: CALCIUM, SERUM 8.6 mg/dL (8.5-10.1); CARBON DIOXIDE 23 mmol/L (21-32); CHLORIDE 103 mmol/L (98-107); CREATININE 0.8 mg/dL (0.6-1.3); GLUCOSE 100 mg/dL (74-106); POTASSIUM 3.7 mmol/L (3.5-5.1); SODIUM SERUM 138 mmol/L (136-145); UREA NITROGEN, BLOOD 15 mg/dL (7-18)
[2019-08-13 22:13] LABS: ACETAMINOPHEN 0 ug/ml (10-30); ALANINE AMINOTRANSFERASE 29 U/L (12-78); ALBUMIN 3.8 g/dL (3.4-5.0); ALCOHOL, BLOOD < 3 mg/dL (0-0); ALKALINE PHOSPHATASE 92 U/L (46-116); ASPARTATE AMINOTRANSFERASE 21 U/L (15-37); BILIRUBIN,DIRECT 0.1 mg/dL (0.0-0.2); BILIRUBIN,TOTAL 0.8 mg/dL (0.2-1.0); SALICYLATE 1.1 mg/dL (2.8-20.0); TOTAL PROTEIN, SERUM 7.3 g/dL (6.4-8.2)
[2019-08-13 22:18] LABS: APPEARANCE,URINE Clear (CLEAR); BILIRUBIN,URINE Negative (NEGATIVE); BLOOD, URINE Negative Ery/uL (NEGATIVE); COLOR,URINE Yellow (YELLOW); KETONES,URINE Negative (NEGATIVE); LEUKOCYTE ESTERASE ,URINE Trace (NEGATIVE); NITRITE, URINE Negative (NEGATIVE); PROTEIN,URINE Negative (NEGATIVE); UGLUCOSE Negative (NEGATIVE); UROBILINOGEN,URINE 0.2 EU/dL (0.2)
--- NOTE | 2019-08-13 22:26 | NUR ---
FOOD TRAY PROVIDED TO PT PER PT REQUEST.
[2019-08-13 23:32] LABS: BACTERIA,URINE Few /HPF (None Seen); MUCUS,URINE Moderate /LPF (None Seen); SQUAMOUS EPITHELIAL CELL,UR Rare /HPF (None Seen); WBC,URINE 21-50 /HPF (0-3)
--- NOTE | 2019-08-14 02:26 | NUR ---
PATIENT IS ASLEEP. EASILY AROUSABLE THROUGH TOUCH AND VERBAL STIMULIWOKE UP TO SAY THANK YOU WHEN GIVEN WARM BLANKET. BREATHING EVENLY AND UNLABORED ON ROOM AIR. CONNECTED TO MONITOR. SITTER AT BEDSIDE.
--- NOTE | 2019-08-14 02:30 | NUR ---
[facility] PT. - ASK SURG NURSE TO TRANSFER TO UNIT 2 BED WILL BE GIVEN UPON REPORT DR. SANTAMARIA
--- NOTE | 2019-08-14 02:38 | NUR ---
CALLED CALL THE CAR TO TRANSPORT PT BLS TO [facility]
--- NOTE | 2019-08-14 04:58 | NUR ---
30 MIN ETA CALL THE CAR
[2019-08-14 05:28] VITALS: BP 112/77
--- NOTE | 2019-08-14 05:39 | NUR ---
REPORT GIVEN TO [facility] NURSE FOR [facility].
== END 2019-08-14 05:40 | disposition short-term general hospital (02) ==
LOC: ER 20:34
DX: F32.9 Major depressive disorder, single episode, unspecified (principal); G43.909 Migraine, unspecified, not intractable, without status migrainosus; K21.9 Gastro-esophageal reflux disease without esophagitis; M81.0 Age-related osteoporosis without current pathological fracture; F90.9 Attention-deficit hyperactivity disorder, unspecified type; M06.9 Rheumatoid arthritis, unspecified; Z88.8 Allergy status to other drugs, medicaments and biological substances; Z79.899 Other long term (current) drug therapy
CPT/HCPCS: 36415; 80048; 80076; 80305; 80307; 80329; 81001; 85025; 99285; G0480; 81000-TC; 87086-TC

== ENCOUNTER 2019-08-25 17:30 | Emergency (ER) | payer OTHER ==
[~2019-08-25] VITALS: Ht 167.6 cm; Wt 86.2 kg
--- NOTE | 2019-08-25 18:06 | NUR ---
PT R EC'D TO ER C/O HE WANTS TO JUMP INFRONT OF A TRAIN LABS AND UA SENT TO LAB AWAITING EVALUATION BY ER PROVIDER.
--- NOTE | 2019-08-25 19:01 | NUR ---
URINE COLLECTED AND SENT TO LAB. SECURITY CALLED FOR WANDING.
--- NOTE | 2019-08-25 19:01 | NUR ---
Judy jacques in ED - 08/25/19 at 1929 by WILLIAM URINE COLLECTED. SECURITY CALLED FOR WANDING. PT COOPERATIVE.
[2019-08-25 19:28] LABS: APPEARANCE,URINE Clear (CLEAR); BILIRUBIN,URINE Negative (NEGATIVE); BLOOD, URINE Negative Ery/uL (NEGATIVE); COLOR,URINE Yellow (YELLOW); KETONES,URINE 15 (NEGATIVE); LEUKOCYTE ESTERASE ,URINE Small (NEGATIVE); NITRITE, URINE Negative (NEGATIVE); PH,URINE 6.5 (5.0-8.0); PROTEIN,URINE Negative (NEGATIVE); UGLUCOSE Negative (NEGATIVE)
[2019-08-25 19:33] LABS: RBC,URINE 0-2 /HPF (0-2)
[2019-08-25 19:34] LABS: BACTERIA,URINE Rare /HPF (None Seen); SPERM,URINE Few /HPF (None Seen); SQUAMOUS EPITHELIAL CELL,UR Few /HPF (None Seen)
[2019-08-25 19:50] LABS: BASOPHILS % (AUTO) 0.6 % (0.0-2.0); EOSINOPHILS % (AUTO) 1.2 % (0.0-6.0); HEMATOCRIT 46 % (39-51); HEMOGLOBIN 15.7 g/dL (13.5-17.5); LYMPHOCYTES # (AUTO) 2.5 /CMM (0.8-4.8); LYMPHOCYTES % (AUTO) 34.3 % (20.0-44.0); MEAN CORPUSCULAR HGB CONC 34 g/dl (31.0-36.0); MEAN CORPUSCULAR VOLUME 90 fL (80-96); MONOCYTES # (AUTO) 0.6 /CMM (0.1-1.30); MONOCYTES % (AUTO) 7.8 % (2.0-12.0); NEUTROPHILS % (AUTO) 56.1 % (43.0-81.0); PLATELET COUNT (AUTO) 260 /CMM (150-450); WHITE BLOOD COUNT (AUTO) 7.2 K/uL (4.3-11.0)
--- NOTE | 2019-08-25 19:55 | NUR ---
PT PROVIDED WITH FOOD AND WATER. PT IS ASLEEP NOW, EASILY AROUSED. VSS.
[2019-08-25 20:03] LABS: ACETAMINOPHEN 0 ug/ml (10-30); ALANINE AMINOTRANSFERASE 45 U/L (12-78); ALBUMIN 4.2 g/dL (3.4-5.0); ALCOHOL, BLOOD < 3 mg/dL (0-0); ALKALINE PHOSPHATASE 106 U/L (46-116); ASPARTATE AMINOTRANSFERASE 25 U/L (15-37); BILIRUBIN,DIRECT 0.1 mg/dL (0.0-0.2); CALCIUM, SERUM 9.2 mg/dL (8.5-10.1); CARBON DIOXIDE 29 mmol/L (21-32); CHLORIDE 99 mmol/L (98-107); GLUCOSE 107 mg/dL (74-106); POTASSIUM 3.7 mmol/L (3.5-5.1); SALICYLATE 0.5 mg/dL (2.8-20.0); SODIUM SERUM 137 mmol/L (136-145); TOTAL PROTEIN, SERUM 8.1 g/dL (6.4-8.2); UREA NITROGEN, BLOOD 13 mg/dL (7-18)
--- NOTE | 2019-08-25 20:55 | NUR ---
CLINICAL AND FACESHEET FAXED TO [facility] FOR VOLUNTARY ADMISSION.
--- NOTE | 2019-08-25 22:00 | NUR ---
PT PROVIDED WITH FOOD.
--- NOTE | 2019-08-25 22:20 | NUR ---
PT ACCEPTED AT [facility] BREEZY RODRIGUEZ ACCEPTING MD SANTAMARIA PT WILL BE GOING TO UNIT 1 PHONE # FOR REPORT
--- NOTE | 2019-08-25 22:34 | NUR ---
REPORT [facility].
--- NOTE | 2019-08-25 22:53 | NUR ---
RECEIVED CALL FROM CALL THE CAR, [facility] ETA 30 MIN
--- NOTE | 2019-08-25 23:29 | NUR ---
REPORT GIVEN TO EMS FOR PT TRANSFER TO [facility].
[2019-08-25 23:33] VITALS: BP 121/69
--- NOTE | 2019-08-25 23:33 | NUR ---
PT TRANSPORTED TO [facility]. S.
== END 2019-08-25 23:38 ==
LOC: ER 17:35
DX: R45.851 Suicidal ideations (principal); F32.9 Major depressive disorder, single episode, unspecified; G43.909 Migraine, unspecified, not intractable, without status migrainosus; K21.9 Gastro-esophageal reflux disease without esophagitis; M81.0 Age-related osteoporosis without current pathological fracture; M06.9 Rheumatoid arthritis, unspecified; F90.9 Attention-deficit hyperactivity disorder, unspecified type; F17.200 Nicotine dependence, unspecified, uncomplicated; Z88.8 Allergy status to other drugs, medicaments and biological substances; Z79.899 Other long term (current) drug therapy
CPT/HCPCS: 36415; 80048; 80076; 80305; 80307; 80329; 81001; 85025; 87086; 99285; G0480; 81000-TC

== ENCOUNTER 2019-09-06 10:49 | Emergency (ER) | payer OTHER ==
[~2019-09-06] VITALS: Ht 167.6 cm; Wt 87.1 kg
--- NOTE | 2019-09-06 11:00 | NUR ---
PT PRESENTED TO THE ER WITH A C/O SI WITH A PLAN TO OD ON HEROINE. PT STATED THAT HE HAS NOT HAD SI IN THE LAST THREE MONTHS. PT STATED THAT HE HAS NEVER ATTEMPTED SUICIDE, BUT HAS HAD THOUGHTS IN THE PAST. PT IS AMBULATORY WITH A STEADY GAIT. ALL BELONGINGS WERE REMOVED AND PLACED IN A LOCKER. PT IS IN A GOWN AND HAS A BLANKET. PT REQUESTED JUICE AND REC'D 2 JUICE BOXES. PT WILL TRY TO GIVE A URINE SAMPLE SHORTLY
[2019-09-06 11:20] LABS: BASOPHILS # (AUTO) 0.1 /CMM (0.0-0.2); BASOPHILS % (AUTO) 0.7 % (0.0-2.0); EOSINOPHILS % (AUTO) 1.1 % (0.0-6.0); HEMATOCRIT 43 % (39-51); HEMOGLOBIN 14.4 g/dL (13.5-17.5); LYMPHOCYTES # (AUTO) 1.8 /CMM (0.8-4.8); LYMPHOCYTES % (AUTO) 25.7 % (20.0-44.0); MEAN CORPUSCULAR HGB CONC 34 g/dl (31.0-36.0); MEAN CORPUSCULAR VOLUME 90 fL (80-96); MONOCYTES # (AUTO) 0.6 /CMM (0.1-1.30); MONOCYTES % (AUTO) 8.3 % (2.0-12.0); NEUTROPHILS # (AUTO) 4.5 /CMM (1.8-8.9); NEUTROPHILS % (AUTO) 64.2 % (43.0-81.0); PLATELET COUNT (AUTO) 291 /CMM (150-450); RED BLOOD CELL COUNT(AUTO) 4.75 MIL/uL (4.5-6.0)
[2019-09-06 11:30] LABS: CALCIUM, SERUM 8.5 mg/dL (8.5-10.1); CARBON DIOXIDE 24 mmol/L (21-32); CHLORIDE 104 mmol/L (98-107); GLUCOSE 108 mg/dL (74-106); POTASSIUM 4.4 mmol/L (3.5-5.1); SODIUM SERUM 139 mmol/L (136-145); UREA NITROGEN, BLOOD 17 mg/dL (7-18)
--- NOTE | 2019-09-06 11:31 | NUR ---
Note undone in EDM - 09/06/19 at 1135 by [email or web address] PT PRESENTED TO THE ER WITH A C/O SI WITH A PLAN TO OD ON HEROINE. PT STATED THAT HE HAS NOT HAD SI IN THE LAST THREE MONTHS. PT STATED THAT HE HAS NEVER ATTEMPTED SUICIDE, BUT HAS HAD THOUGHTS IN THE PAST. PT IS AMBULATORY WITH A STEADY GAIT. ALL BELONGINGS WERE REMOVED AND PLACED IN A LOCKER. PT IS IN A GOWN AND HAS A BLANKET. PT REQUESTED JUICE AND REC'D 2 JUICE BOXES. PT WILL TRY TO GIVE A URINE SAMPLE SHORTLY.
[2019-09-06 11:38] LABS: ACETAMINOPHEN 0 ug/ml (10-30); ALANINE AMINOTRANSFERASE 22 U/L (12-78); ALBUMIN 3.2 g/dL (3.4-5.0); ALCOHOL, BLOOD < 3 mg/dL (0-0); ALKALINE PHOSPHATASE 91 U/L (46-116); ASPARTATE AMINOTRANSFERASE 13 U/L (15-37); BILIRUBIN,DIRECT 0.1 mg/dL (0.0-0.2); BILIRUBIN,TOTAL 0.4 mg/dL (0.2-1.0); SALICYLATE 1.7 mg/dL (2.8-20.0); TOTAL PROTEIN, SERUM 6.8 g/dL (6.4-8.2)
--- NOTE | 2019-09-06 13:00 | NUR ---
URINE SAMPLE SENT TO LAB.
--- NOTE | 2019-09-06 13:10 | NUR ---
PT REC'D A FOOD TRAY.
[2019-09-06 13:51] LABS: APPEARANCE,URINE Clear (CLEAR); BILIRUBIN,URINE Negative (NEGATIVE); BLOOD, URINE Negative Ery/uL (NEGATIVE); COLOR,URINE Yellow (YELLOW); KETONES,URINE Negative (NEGATIVE); LEUKOCYTE ESTERASE ,URINE Negative (NEGATIVE); NITRITE, URINE Negative (NEGATIVE); PROTEIN,URINE Negative (NEGATIVE); UGLUCOSE Negative (NEGATIVE); UROBILINOGEN,URINE 0.2 EU/dL (0.2)
--- NOTE | 2019-09-06 14:14 | NUR ---
CALLING ABA GARG LCSW RE: [place]. SPOKE TO ART AND PT TO GO TO [facility]. CALLING [facility].
--- NOTE | 2019-09-06 14:15 | NUR ---
[facility] BALLISTICS EXPERT IS COMING TO SEE THE PT.
--- NOTE | 2019-09-06 14:35 | NUR ---
PT WAS SEEN BY [facility] INTERIOR WALL ASSEMBLER. PT TO GO TO [facility] VOL[facility]AR[facility].
--- NOTE | 2019-09-06 14:36 | NUR ---
SW Consult SW consult was requested by ER staff due to the pts suicidal ideation. BAM met with the pt at bedside and conducted an evaluation. Pt appeared to be alert and oriented x4 (time, place, self and situation). Pt appeared to be ambulatory, well groomed and appropriately dressed. Pt presented with a depressed mood and with a calm affect. Pt stated that he is "feeling weak and tired." Pt stated that he is depressed and suicidal with a plan to overdose on heroin. Pt stated that he does not currently have access to heroin but he does know where he can get it. Pt stated that he lives in an with some of his friends and although that is a safe environment for the pt, he would like to be discharged to [facility] on a voluntary hold. Plan: BAM spoke to Dmitry ([phone]) and faxed paperwork to [phone]. Pt will be discharged to [facility] once there is a bed for the pt.
--- NOTE | 2019-09-06 17:20 | NUR ---
ADMITTED TO [facility]. DR RESENDIZ/JOSE. REPORT TO NURSING SUPP DON.
--- NOTE | 2019-09-06 17:29 | NUR ---
REPORT GIVEN TO NURSING RENEE OCHOA AT [facility]. PT AWAITING [facility].
--- NOTE | 2019-09-06 17:35 | NUR ---
CALLED TRANSPORT ETA IS 60 MINS AM WEST.
--- NOTE | 2019-09-06 18:54 | NUR ---
AM WEST ARRIVED, REPORT GIVEN, AND COPY OF ALL RECORDS GIVEN TO EMT. Patient discharged VIA AMBULANCE TO [facility] in stable condition. Written and verbal after care instructions given. Patient verbalizes understanding of instruction. VSS
[2019-09-06 18:59] VITALS: BP 115/66
== END 2019-09-06 19:00 | disposition home or self-care (01) ==
LOC: ER 10:51
DX: R45.851 Suicidal ideations (principal); G43.909 Migraine, unspecified, not intractable, without status migrainosus; K21.9 Gastro-esophageal reflux disease without esophagitis; F32.9 Major depressive disorder, single episode, unspecified; Z88.8 Allergy status to other drugs, medicaments and biological substances; Z88.6 Allergy status to analgesic agent; Z98.890 Other specified postprocedural states
CPT/HCPCS: 36415; 80048; 80076; 80305; 80307; 80329; 81001; 85025; 99284; G0480; 81000-TC

== ENCOUNTER 2019-09-18 10:53 | Emergency (ER) | payer OTHER ==
[~2019-09-18] VITALS: Ht 167.6 cm; Wt 82.6 kg
--- NOTE | 2019-09-18 11:14 | NUR ---
PATIENT AGITATED, REFUSING TO HAVE HIS TEMPERATURE CHECKED AND CLAIMING THAT "YOURE STABBING ME WITH A THERMOMETER." VERBALLY ABUSIVE TO STAFF.
--- NOTE | 2019-09-18 11:35 | NUR ---
PT BIB SELF C/O CHEST PAIN AND SUICIDAL IDEATION, PT IS AAOX4, NOT IN RESPIRATORY DISTRESS, HOOKED TO SECTION CHIEF, KEPT RESTED AND COMFORTABLE, WILL CONTINUE TO MONITOR.
--- NOTE | 2019-09-18 11:39 | NUR ---
SEEN AND EXAMINED BY .
--- NOTE | 2019-09-18 11:43 | NUR ---
ER PHLEB AT BEDSIDE FOR BLOOD DRAW.
--- NOTE | 2019-09-18 11:55 | NUR ---
FOOD TRAY PROVIDED.
[2019-09-18 11:57] LABS: BASOPHILS # (AUTO) 0.1 /CMM (0.0-0.2); BASOPHILS % (AUTO) 0.7 % (0.0-2.0); EOSINOPHILS % (AUTO) 1.4 % (0.0-6.0); HEMATOCRIT 46 % (39-51); HEMOGLOBIN 15.5 g/dL (13.5-17.5); LYMPHOCYTES # (AUTO) 2.6 /CMM (0.8-4.8); LYMPHOCYTES % (AUTO) 35.1 % (20.0-44.0); MEAN CORPUSCULAR HGB CONC 34 g/dl (31.0-36.0); MEAN CORPUSCULAR VOLUME 90 fL (80-96); MONOCYTES # (AUTO) 0.4 /CMM (0.1-1.30); NEUTROPHILS # (AUTO) 4.2 /CMM (1.8-8.9); NEUTROPHILS % (AUTO) 56.8 % (43.0-81.0); PLATELET COUNT (AUTO) 279 /CMM (150-450); RED BLOOD CELL COUNT(AUTO) 5.11 MIL/uL (4.5-6.0); WHITE BLOOD COUNT (AUTO) 7.4 K/uL (4.3-11.0)
--- NOTE | 2019-09-18 12:00 | NUR ---
RESTAURANT LINE SERVER AT BEDSIDE FOR XRAY.
[2019-09-18 12:03] LABS: CALCIUM, SERUM 9.3 mg/dL (8.5-10.1); CARBON DIOXIDE 23 mmol/L (21-32); CHLORIDE 105 mmol/L (98-107); CREATININE 1.1 mg/dL (0.6-1.3); GLUCOSE 124 mg/dL (74-106); POTASSIUM 3.6 mmol/L (3.5-5.1); SODIUM SERUM 138 mmol/L (136-145); UREA NITROGEN, BLOOD 12 mg/dL (7-18)
[2019-09-18 12:20] LABS: ACETAMINOPHEN 0 ug/ml (10-30); ALANINE AMINOTRANSFERASE 24 U/L (12-78); ALBUMIN 3.6 g/dL (3.4-5.0); ALCOHOL, BLOOD < 3 mg/dL (0-0); ALKALINE PHOSPHATASE 105 U/L (46-116); ASPARTATE AMINOTRANSFERASE 20 U/L (15-37); BILIRUBIN,DIRECT 0.2 mg/dL (0.0-0.2); SALICYLATE 1.1 mg/dL (2.8-20.0); TOTAL PROTEIN, SERUM 7.3 g/dL (6.4-8.2)
--- NOTE | 2019-09-18 16:20 | NUR ---
SW CONSULT BAM was contacted by ER staff stating that this 59 year old male is suicidal and has agreed to be discharged to [facility] on a voluntary hold. Pt states, "I am feeling depressed and I have a lot of pain in my body." Pt stated that he has a plan to overdose on heroin and stated that he does not have access at this current time. Pt states that he is homeless and lives in his RV. Pt is alert and oriented x4 (time, place, self and situation). Pt appeared to be in a depressed mood and presented with a distressed affect. Pt states that he was not able to get his medications and therefore he was unable to sleep. Pt stated that he used methamphetamines upon admission. SW provided the pt with substance abuse resources. BAM faxed the pts information to [phone] with attention to Dmitry. Plan: Discharge the pt to [facility] on a voluntary hold.
--- NOTE | 2019-09-18 17:00 | NUR ---
URINE SPECIMEN COLLECTED AND SENT TO LAB.
[2019-09-18 17:08] LABS: BILIRUBIN,URINE Negative (NEGATIVE); BLOOD, URINE Negative Ery/uL (NEGATIVE); COLOR,URINE Yellow (YELLOW); KETONES,URINE Negative (NEGATIVE); LEUKOCYTE ESTERASE ,URINE Moderate (NEGATIVE); NITRITE, URINE Negative (NEGATIVE); PROTEIN,URINE Negative (NEGATIVE); UGLUCOSE Negative (NEGATIVE)
[2019-09-18 17:11] LABS: APPEARANCE,URINE SLIGHTLY CLOUDY (CLEAR)
[2019-09-18 17:21] LABS: BACTERIA,URINE 2+ /HPF (None Seen); RBC,URINE NONE SEEN /HPF (0-2); SQUAMOUS EPITHELIAL CELL,UR Few /HPF (None Seen)
--- NOTE | 2019-09-18 19:49 | NUR ---
Patient is resting comfortably in bed. Easily aroused. VSS. Provided with orange juice and crackers.
--- NOTE | 2019-09-18 19:56 | NUR ---
PER BESSIE FROM [facility], NO BED AVAILABLE AT THIS TIME
--- NOTE | 2019-09-18 22:07 | NUR ---
PER MOLLY- INTAKE [facility], VP PRODUCTION REVIEWING CLINICALS NEEDS APPROX 30 MIN AND WILL CALL BACK WITH UPDATE OF ACCEPTANCE TO [facility]
--- NOTE | 2019-09-19 00:28 | NUR ---
PT ACCEPTED TO [facility] ACCEPTING MD: DR. UMANZOR NUMBER FOR REPORT: [phone] EXT 108 UNIT 1
[2019-09-19 00:30] VITALS: BP 102/68
--- NOTE | 2019-09-19 01:01 | NUR ---
ETA 1HR
--- NOTE | 2019-09-19 01:05 | NUR ---
REPORT GIVEN TO BORIS CONNER FOR [facility]
--- NOTE | 2019-09-19 02:00 | NUR ---
REPORT GIVEN TO [facility]. PT TRANSFERED TO [facility]
== END 2019-09-19 02:01 ==
LOC: ER 10:53
DX: F32.9 Major depressive disorder, single episode, unspecified (principal); R45.851 Suicidal ideations; F41.9 Anxiety disorder, unspecified; R00.2 Palpitations; G43.909 Migraine, unspecified, not intractable, without status migrainosus; Z88.8 Allergy status to other drugs, medicaments and biological substances; Z79.899 Other long term (current) drug therapy
CPT/HCPCS: 36415; 71045; 80048; 80076; 80305; 80307; 80329; 81001; 84484; 85025; 93005; 99285; G0480; 81000-TC; 87086-TC

== ENCOUNTER 2019-09-28 16:23 | Emergency (ER) | payer OTHER ==
[~2019-09-28] VITALS: Ht 167.6 cm; Wt 82.6 kg
--- NOTE | 2019-09-28 16:40 | NUR ---
called security for wanding
--- NOTE | 2019-09-28 16:45 | NUR ---
security at bedside for wanding
--- NOTE | 2019-09-28 16:46 | NUR ---
patient came in to the er c/o suicidal ideation "overdose on heroin". On room air, breathing evenly and unlabored. kept comfortable, will continue to monitor accordingly.
[2019-09-28 17:11] LABS: APPEARANCE,URINE Clear (CLEAR); BILIRUBIN,URINE Negative (NEGATIVE); BLOOD, URINE Negative Ery/uL (NEGATIVE); COLOR,URINE Yellow (YELLOW); KETONES,URINE Trace (NEGATIVE); LEUKOCYTE ESTERASE ,URINE Small (NEGATIVE); NITRITE, URINE Negative (NEGATIVE); PH,URINE 5.5 (5.0-8.0); PROTEIN,URINE Negative (NEGATIVE); UGLUCOSE Negative (NEGATIVE); UROBILINOGEN,URINE 0.2 EU/dL (0.2)
[2019-09-28 17:20] LABS: CALCIUM, SERUM 9.1 mg/dL (8.5-10.1); CARBON DIOXIDE 22 mmol/L (21-32); CHLORIDE 101 mmol/L (98-107); CREATININE 1.2 mg/dL (0.6-1.3); GLUCOSE 96 mg/dL (74-106); POTASSIUM 3.9 mmol/L (3.5-5.1); SODIUM SERUM 137 mmol/L (136-145); UREA NITROGEN, BLOOD 13 mg/dL (7-18)
[2019-09-28 17:22] LABS: BASOPHILS # (AUTO) 0.1 /CMM (0.0-0.2); BASOPHILS % (AUTO) 0.6 % (0.0-2.0); EOSINOPHILS % (AUTO) 1.8 % (0.0-6.0); HEMATOCRIT 46 % (39-51); HEMOGLOBIN 15.5 g/dL (13.5-17.5); LYMPHOCYTES # (AUTO) 3.3 /CMM (0.8-4.8); MEAN CORPUSCULAR HGB CONC 34 g/dl (31.0-36.0); MEAN CORPUSCULAR VOLUME 90 fL (80-96); MONOCYTES # (AUTO) 0.9 /CMM (0.1-1.30); MONOCYTES % (AUTO) 10.4 % (2.0-12.0); NEUTROPHILS # (AUTO) 4.3 /CMM (1.8-8.9); NEUTROPHILS % (AUTO) 49.2 % (43.0-81.0); PLATELET COUNT (AUTO) 287 /CMM (150-450); WHITE BLOOD COUNT (AUTO) 8.7 K/uL (4.3-11.0)
[2019-09-28 17:26] LABS: ALANINE AMINOTRANSFERASE 40 U/L (12-78); ALBUMIN 4.1 g/dL (3.4-5.0); ALCOHOL, BLOOD 5 mg/dL (0-0); ALKALINE PHOSPHATASE 102 U/L (46-116); ASPARTATE AMINOTRANSFERASE 25 U/L (15-37); BILIRUBIN,DIRECT 0.1 mg/dL (0.0-0.2); BILIRUBIN,TOTAL 0.5 mg/dL (0.2-1.0); TOTAL PROTEIN, SERUM 7.7 g/dL (6.4-8.2)
[2019-09-28 17:29] LABS: ACETAMINOPHEN < 2 ug/ml (10-30); SALICYLATE 2.1 mg/dL (2.8-20.0)
[2019-09-28 17:30] LABS: BACTERIA,URINE 1+ /HPF (None Seen); RBC,URINE NONE SEEN /HPF (0-2); SQUAMOUS EPITHELIAL CELL,UR Few /HPF (None Seen)
--- NOTE | 2019-09-28 18:47 | NUR ---
CALLED [facility] FOR EVALUATION. WILL BE HERE WITHIN AN HOUR.
--- NOTE | 2019-09-28 19:39 | NUR ---
PINKY FROM CRISIS AT BEDSIDE
--- NOTE | 2019-09-28 20:32 | NUR ---
TRANSFER INFORMATION: [facility] ACCE[facility]ING MD: DR. UMANZOR/DR. HAM UNIT 1 ROOM 101B NUMBER FOR REPORT: [phone] CALLED CALL THE CAR FOR TRANSPORTATION. CONFIRMATION #[id number] WILL CALL BACK WITH ETA
[2019-09-28 20:34] VITALS: BP 108/72
--- NOTE | 2019-09-28 21:15 | NUR ---
REPORT GIVEN TO CECILE CONNER FOR [facility]
--- NOTE | 2019-09-28 21:26 | NUR ---
TRANSPORTATION ETA 1234
[2019-09-28] MEDS ORDERED: OLANZAPINE 5 MG TABLET ONE (21:36)
--- NOTE | 2019-09-28 21:44 | NUR ---
Report given to transport. Pt transported to [facility].
[2019-09-28] MEDS ORDERED: OLANZAPINE 5 MG TABLET PO ONE (22:00)
== END 2019-09-28 21:45 ==
LOC: ER 16:25
DX: R45.851 Suicidal ideations (principal); F15.10 Other stimulant abuse, uncomplicated; G43.909 Migraine, unspecified, not intractable, without status migrainosus; K21.9 Gastro-esophageal reflux disease without esophagitis; M81.0 Age-related osteoporosis without current pathological fracture; F32.9 Major depressive disorder, single episode, unspecified; F90.9 Attention-deficit hyperactivity disorder, unspecified type; M06.9 Rheumatoid arthritis, unspecified; F17.200 Nicotine dependence, unspecified, uncomplicated; Z88.8 Allergy status to other drugs, medicaments and biological substances; Z79.899 Other long term (current) drug therapy
CPT/HCPCS: 36415; 80048; 80076; 80305; 80307; 80329; 81001; 85025; 87086; 99285; G0480; 81000-TC

== ENCOUNTER 2019-10-06 11:51 | Emergency (ER) | payer OTHER ==
[~2019-10-06] VITALS: Ht 170.2 cm; Wt 86.2 kg
--- NOTE | 2019-10-06 11:51 | NUR ---
PT NATHAN QURESHI FROM THE STREET C/O SUICIDAL IDEATION " I WANT TO OD ON HEROIN" PT IS ON 5150 HOLD BY KIERA, PT IS AAOX4, NOT IN RESPIRATORY DISTRESS, V/S STABLE, KEPT RESTED AND COMFORTABLE, WILL CONTINUE TO MONITOR.
--- NOTE | 2019-10-06 11:53 | NUR ---
SITTER AT BEDSIDE.
--- NOTE | 2019-10-06 11:55 | NUR ---
SEEN AND EXAMINED BY .
--- NOTE | 2019-10-06 11:56 | NUR ---
ROOSE[place]T SPECIMEN COLLECTED AND SENT TO LAB.
--- NOTE | 2019-10-06 12:04 | NUR ---
SECURITY AT BEDSIDE FOR WANDING.
[2019-10-06 12:20] LABS: APPEARANCE,URINE CLEAR (CLEAR); BILIRUBIN,URINE NEGATIVE (NEGATIVE); BLOOD, URINE NEGATIVE Ery/uL (NEGATIVE); COLOR,URINE YELLOW (YELLOW); KETONES,URINE NEGATIVE (NEGATIVE); LEUKOCYTE ESTERASE ,URINE TRACE (NEGATIVE); NITRITE, URINE NEGATIVE (NEGATIVE); PROTEIN,URINE NEGATIVE (NEGATIVE); UGLUCOSE NEGATIVE (NEGATIVE); UROBILINOGEN,URINE 0.2 EU/dL (0.2)
[2019-10-06 12:27] LABS: BASOPHILS % (AUTO) 0.2 % (0.0-2.0); EOSINOPHILS % (AUTO) 1.2 % (0.0-6.0); HEMATOCRIT 47 % (39-51); HEMOGLOBIN 15.6 g/dL (13.5-17.5); LYMPHOCYTES # (AUTO) 2.2 /CMM (0.8-4.8); LYMPHOCYTES % (AUTO) 24.1 % (20.0-44.0); MEAN CORPUSCULAR HGB CONC 33 g/dl (31.0-36.0); MEAN CORPUSCULAR VOLUME 89 fL (80-96); MONOCYTES # (AUTO) 0.7 /CMM (0.1-1.30); MONOCYTES % (AUTO) 7.6 % (2.0-12.0); NEUTROPHILS # (AUTO) 6.2 /CMM (1.8-8.9); NEUTROPHILS % (AUTO) 66.9 % (43.0-81.0); PLATELET COUNT (AUTO) 275 /CMM (150-450); RED BLOOD CELL COUNT(AUTO) 5.27 MIL/uL (4.5-6.0); WHITE BLOOD COUNT (AUTO) 9.3 K/uL (4.3-11.0)
[2019-10-06 12:28] LABS: WBC,URINE 0-2 /HPF (0-3)
[2019-10-06 12:29] LABS: BACTERIA,URINE Rare /HPF (None Seen); SQUAMOUS EPITHELIAL CELL,UR Rare /HPF (None Seen)
[2019-10-06 12:31] LABS: CALCIUM, SERUM 8.9 mg/dL (8.5-10.1); CREATININE 0.8 mg/dL (0.6-1.3); POTASSIUM 3.8 mmol/L (3.5-5.1)
[2019-10-06 12:35] LABS: BILIRUBIN,DIRECT 0.1 mg/dL (0.0-0.2); BILIRUBIN,TOTAL 0.4 mg/dL (0.2-1.0); SALICYLATE 2.9 mg/dL (2.8-20.0)
--- NOTE | 2019-10-06 15:26 | NUR ---
CALLED RESIDENT CARE MANAGER RN ABEL OCONNOR VOICEMAIL
[2019-10-06] MEDS ORDERED: LORAZEPAM 1 MG TABLET ONE ×2 (15:28→18:03)
[2019-10-06] MEDS ORDERED: NICOTINE PATCH (14MG) 14 MG PATCH.TD24 TD SCH (15:30)
[2019-10-06] MEDS ORDERED: LORAZEPAM 1 MG TABLET PO ONE ×2 (15:30→18:00)
--- NOTE | 2019-10-06 15:40 | NUR ---
[facility] ETA 45 MINUTES
--- NOTE | 2019-10-06 16:53 | NUR ---
ELVIN RN CRISIS MANAGER HOSPICE AT BEDSIDE.
--- NOTE | 2019-10-06 17:09 | NUR ---
pre billing clinician Vonnie CONNER breaks 5150 hold.
--- NOTE | 2019-10-06 18:12 | NUR ---
Patient given written and verbal discharge instructions. Patient refused to sign DC paper. Patient is ambulatory with steady gait. Refuses offer of intermediate placement. Patient given list of available shelters in surrounding area. Discharged in proper clothing, all belongings returned to the patient. Name band removed.
[2019-10-06 18:15] VITALS: BP 117/70
== END 2019-10-06 18:15 | disposition home or self-care (01) ==
LOC: ER 11:54
DX: R45.851 Suicidal ideations (principal); F32.9 Major depressive disorder, single episode, unspecified; F15.10 Other stimulant abuse, uncomplicated; G43.909 Migraine, unspecified, not intractable, without status migrainosus; K21.9 Gastro-esophageal reflux disease without esophagitis; M06.9 Rheumatoid arthritis, unspecified; M81.0 Age-related osteoporosis without current pathological fracture; F90.9 Attention-deficit hyperactivity disorder, unspecified type; F17.200 Nicotine dependence, unspecified, uncomplicated; Z88.8 Allergy status to other drugs, medicaments and biological substances; Z79.899 Other long term (current) drug therapy
CPT/HCPCS: 36415; 71045; 80048; 80076; 80305; 80307 ×2; 80329; 81001; 85025; 99285; G0480; 81000-TC

== ENCOUNTER 2019-10-17 17:54 | Emergency (ER) | payer OTHER ==
[~2019-10-17] VITALS: Ht 170.2 cm; Wt 86.2 kg
--- NOTE | 2019-10-17 20:00 | NUR ---
PT PRESENTED TO THE ER FOR C/O SI PLANNING TO OVERDOSE ON HEROIN. PT AMBULATORY W/ STABLE VS. PT WAS PLACED IN HOSPITAL GOWN. ALL BELONGINGS COLLECTED AND PLACED IN THE SAFE LOCKER. URINE SAMPLE COLLECTED. PT REMAINED ON CLOSE SUPERVISION OF THE SITTER FOR SAFETY. WILL CONT TO MONITOR ,
[2019-10-17 20:34] LABS: APPEARANCE,URINE Clear (CLEAR); BILIRUBIN,URINE Negative (NEGATIVE); BLOOD, URINE Trace-intact Ery/uL (NEGATIVE); COLOR,URINE Yellow (YELLOW); KETONES,URINE Negative (NEGATIVE); LEUKOCYTE ESTERASE ,URINE Trace (NEGATIVE); NITRITE, URINE Negative (NEGATIVE); PH,URINE 5.5 (5.0-8.0); PROTEIN,URINE Negative (NEGATIVE); UGLUCOSE Negative (NEGATIVE); UROBILINOGEN,URINE 0.2 EU/dL (0.2)
[2019-10-17 20:45] LABS: BASOPHILS # (AUTO) 0.1 /CMM (0.0-0.2); BASOPHILS % (AUTO) 0.4 % (0.0-2.0); EOSINOPHILS % (AUTO) 0.5 % (0.0-6.0); HEMATOCRIT 46 % (39-51); HEMOGLOBIN 15.4 g/dL (13.5-17.5); LYMPHOCYTES # (AUTO) 3.8 /CMM (0.8-4.8); LYMPHOCYTES % (AUTO) 31.2 % (20.0-44.0); MEAN CORPUSCULAR HGB CONC 34 g/dl (31.0-36.0); MEAN CORPUSCULAR VOLUME 90 fL (80-96); MONOCYTES # (AUTO) 0.8 /CMM (0.1-1.30); MONOCYTES % (AUTO) 6.6 % (2.0-12.0); NEUTROPHILS # (AUTO) 7.4 /CMM (1.8-8.9); NEUTROPHILS % (AUTO) 61.3 % (43.0-81.0); PLATELET COUNT (AUTO) 325 /CMM (150-450); RED BLOOD CELL COUNT(AUTO) 5.04 MIL/uL (4.5-6.0); WHITE BLOOD COUNT (AUTO) 12.1 K/uL (4.3-11.0)
[2019-10-17 20:49] LABS: BACTERIA,URINE Rare /HPF (None Seen); SPERM,URINE Few /HPF (None Seen); SQUAMOUS EPITHELIAL CELL,UR Few /HPF (None Seen)
[2019-10-17 20:54] LABS: CALCIUM, SERUM 9.3 mg/dL (8.5-10.1); CARBON DIOXIDE 20 mmol/L (21-32); CHLORIDE 101 mmol/L (98-107); CREATININE 0.8 mg/dL (0.6-1.3); GLUCOSE 99 mg/dL (74-106); POTASSIUM 3.7 mmol/L (3.5-5.1); SODIUM SERUM 137 mmol/L (136-145); UREA NITROGEN, BLOOD 20 mg/dL (7-18)
[2019-10-17 21:00] LABS: ACETAMINOPHEN < 10 ug/ml (10-30); ALANINE AMINOTRANSFERASE 26 U/L (12-78); ALCOHOL, BLOOD < 3 mg/dL (0-0); ALKALINE PHOSPHATASE 99 U/L (46-116); ASPARTATE AMINOTRANSFERASE 13 U/L (15-37); BILIRUBIN,DIRECT 0.1 mg/dL (0.0-0.2); BILIRUBIN,TOTAL 0.2 mg/dL (0.2-1.0); SALICYLATE 3.2 mg/dL (2.8-20.0); TOTAL PROTEIN, SERUM 7.7 g/dL (6.4-8.2)
[2019-10-17] MEDS ORDERED: LORAZEPAM 1 MG TABLET ONE (21:05)
[2019-10-17] MEDS ORDERED: LORAZEPAM 1 MG TABLET PO ONE (21:30)
--- NOTE | 2019-10-17 21:44 | NUR ---
CLINICAL FAXED TO [facility] FOR VOLUNTARY PSYCH ADMISSION.
--- NOTE | 2019-10-17 22:37 | NUR ---
PT ACCEPTED AT [facility]. ACCEPTING MD SANTAMARIA PT WILL GO TO UNIT 1
--- NOTE | 2019-10-18 00:19 | NUR ---
[facility] 01:15
--- NOTE | 2019-10-18 00:34 | NUR ---
REPORT GIVEN TO DANNI CONNER FOR [facility]
--- NOTE | 2019-10-18 02:30 | NUR ---
PT RESTING COMFPRTABLY IN BED. VSS. NO ACUTE DISTRESS NOTED. SITTER AT BEDSIDE FOR SAFETY
--- NOTE | 2019-10-18 02:40 | NUR ---
CALLED CALL THE CAR TO F/U W/ THE TRANSPO. NEW ETA WILL BE BETWEEN 0330 TO 0400
--- NOTE | 2019-10-18 03:56 | NUR ---
REPORT GIVEN TO KEATON FROM [facility]
[2019-10-18 04:00] VITALS: BP 128/67
--- NOTE | 2019-10-18 04:04 | NUR ---
PT WAS TRANSFERRED TO [facility]IA [facility] IN STABLE CONDITION. ALL BELONGINGS PICKED UP BY THE PT
== END 2019-10-18 04:05 | disposition short-term general hospital (02) ==
LOC: ER 17:54
DX: R45.851 Suicidal ideations (principal); F15.10 Other stimulant abuse, uncomplicated; G43.909 Migraine, unspecified, not intractable, without status migrainosus; K21.9 Gastro-esophageal reflux disease without esophagitis; M81.0 Age-related osteoporosis without current pathological fracture; F17.200 Nicotine dependence, unspecified, uncomplicated; F32.9 Major depressive disorder, single episode, unspecified; M06.9 Rheumatoid arthritis, unspecified; Z88.8 Allergy status to other drugs, medicaments and biological substances; Z79.899 Other long term (current) drug therapy
CPT/HCPCS: 36415; 80048; 80076; 80305 ×2; 80307; 80329; 81001; 85025; 99285; G0480; 81000-TC

== ENCOUNTER 2019-10-26 09:38 | Emergency (ER) | payer OTHER ==
[~2019-10-26] VITALS: Ht 165.1 cm; Wt 70.8 kg
--- NOTE | 2019-10-26 09:50 | NUR ---
Suicidal ideation with plan to cut wrist. Patient a/ox4, breathing even and unlabored, no sob noted. Needs attended. Gave a urine cup for sample.
[2019-10-26 10:16] LABS: BASOPHILS % (AUTO) 0.4 % (0.0-2.0); EOSINOPHILS % (AUTO) 1.3 % (0.0-6.0); HEMATOCRIT 43 % (39-51); HEMOGLOBIN 14.5 g/dL (13.5-17.5); LYMPHOCYTES % (AUTO) 27.7 % (20.0-44.0); MEAN CORPUSCULAR HGB CONC 34 g/dl (31.0-36.0); MEAN CORPUSCULAR VOLUME 90 fL (80-96); MONOCYTES # (AUTO) 0.9 /CMM (0.1-1.30); MONOCYTES % (AUTO) 8.6 % (2.0-12.0); NEUTROPHILS # (AUTO) 6.6 /CMM (1.8-8.9); PLATELET COUNT (AUTO) 285 /CMM (150-450); WHITE BLOOD COUNT (AUTO) 10.7 K/uL (4.3-11.0)
[2019-10-26 10:39] LABS: CALCIUM, SERUM 8.6 mg/dL (8.5-10.1); CARBON DIOXIDE 24 mmol/L (21-32); CHLORIDE 101 mmol/L (98-107); CREATININE 0.9 mg/dL (0.6-1.3); GLUCOSE 126 mg/dL (74-106); POTASSIUM 3.4 mmol/L (3.5-5.1); SODIUM SERUM 136 mmol/L (136-145); UREA NITROGEN, BLOOD 15 mg/dL (7-18)
[2019-10-26 10:40] LABS: BILIRUBIN,DIRECT 0.2 mg/dL (0.0-0.2)
--- NOTE | 2019-10-26 10:40 | NUR ---
security wandering. belongings taken away and placed in locker, sitter at bedside.
[2019-10-26 10:41] LABS: ALKALINE PHOSPHATASE 108 U/L (46-116); ASPARTATE AMINOTRANSFERASE 24 U/L (15-37)
[2019-10-26 10:42] LABS: ALANINE AMINOTRANSFERASE 42 U/L (12-78); ALBUMIN 3.6 g/dL (3.4-5.0); TOTAL PROTEIN, SERUM 7.1 g/dL (6.4-8.2)
[2019-10-26 10:43] LABS: ACETAMINOPHEN < 3 ug/ml (10-30)
[2019-10-26 10:49] LABS: ALCOHOL, BLOOD < 3 mg/dL (0-0)
[2019-10-26 11:37] LABS: APPEARANCE,URINE CLEAR (CLEAR); BILIRUBIN,URINE NEGATIVE (NEGATIVE); BLOOD, URINE NEGATIVE Ery/uL (NEGATIVE); COLOR,URINE DARK YELLO (YELLOW); KETONES,URINE NEGATIVE (NEGATIVE); LEUKOCYTE ESTERASE ,URINE NEGATIVE (NEGATIVE); NITRITE, URINE NEGATIVE (NEGATIVE); PH,URINE 5.5 (5.0-8.0); PROTEIN,URINE TRACE mg/dl (NEGATIVE); UGLUCOSE NEGATIVE (NEGATIVE); UROBILINOGEN,URINE 0.2 EU/dL (0.2)
[2019-10-26 11:55] LABS: BACTERIA,URINE Few /HPF (None Seen); RBC,URINE 0-2 /HPF (0-2); SPERM,URINE Moderate /HPF (None Seen); SQUAMOUS EPITHELIAL CELL,UR Rare /HPF (None Seen)
--- NOTE | 2019-10-26 12:55 | NUR ---
Social Service request for voluntary psychiatric admission for [facility]. Per MD notes, pt is a 59-year-old male who is well-known to the emergency room. Patient states "I feel really bad". Patient states he is suicidal wants to cut his wrist. Patient states his last psychiatric hospital was approximately 2 weeks ago. Patient denies taking his routine medications. Patient denies any other medical problems or concerns. Patient does have a sunburn to both arms from "being outside too long". CONCRETE HANDLER contacted Dmitry at [facility] and initiated voluntary psychiatric admission. CONCRETE HANDLER faxed clinicals to intake at [facility]. Per Dmitry, they will have a bed for the pt.
--- NOTE | 2019-10-26 13:56 | NUR ---
CLINICAL ENGINEERING DIRECTOR contacted [facility] intake dept for f/u. Per Heather, pt clinicals were referred to nursing seismic prospecting supervisor and is pending acceptance at this time. CLINICAL ENGINEERING DIRECTOR informed [facility] to contact ED once pt is accepted.
--- NOTE | 2019-10-26 14:38 | NUR ---
REPORT GIVEN TO HARIS CONNER,ACCEPTED BY [facility]
--- NOTE | 2019-10-26 19:11 | NUR ---
CALLED (CALLED THE CAR) [facility] ETA 2014. REFERRAL # [id number]
--- NOTE | 2019-10-26 20:06 | NUR ---
Updated eta 2114
--- NOTE | 2019-10-26 22:15 | NUR ---
PATIENT'S BELONGINGS AND REPORT HANDED OFF TO TRANSPORT TEAM FOR [facility]. AND TRANSFERRING RESPONSIBILITIES.
[2019-10-26 22:16] VITALS: BP 119/79
== END 2019-10-26 22:16 ==
LOC: ER 09:40
DX: R45.851 Suicidal ideations (principal); L55.9 Sunburn, unspecified; F19.10 Other psychoactive substance abuse, uncomplicated; G43.909 Migraine, unspecified, not intractable, without status migrainosus; K21.9 Gastro-esophageal reflux disease without esophagitis; K58.9 Irritable bowel syndrome, unspecified; Z88.8 Allergy status to other drugs, medicaments and biological substances; Z79.899 Other long term (current) drug therapy
CPT/HCPCS: 36415; 80048; 80076; 80305; 80307; 80329; 81001; 85025; 99285; G0480; 81000-TC

== ENCOUNTER 2019-11-07 14:38 | Emergency (ER) | payer OTHER ==
[~2019-11-07] VITALS: Ht 170.2 cm; Wt 86.2 kg
--- NOTE | 2019-11-07 15:00 | NUR ---
patient came in to the er c/o anxiety and SI "i want to overdose on heroine". On room air, breathing evenly and unlabored. kept comfortable, will continue to monitor accordingly. sitter at bedside for constant monitoring.
--- NOTE | 2019-11-07 15:05 | NUR ---
Called security for wanding
[2019-11-07 15:07] LABS: BASOPHILS % (AUTO) 0.5 % (0.0-2.0); EOSINOPHILS % (AUTO) 1.8 % (0.0-6.0); HEMATOCRIT 47 % (39-51); HEMOGLOBIN 15.5 g/dL (13.5-17.5); LYMPHOCYTES # (AUTO) 2.5 /CMM (0.8-4.8); LYMPHOCYTES % (AUTO) 36.3 % (20.0-44.0); MEAN CORPUSCULAR HGB CONC 33 g/dl (31.0-36.0); MEAN CORPUSCULAR VOLUME 91 fL (80-96); MONOCYTES # (AUTO) 0.4 /CMM (0.1-1.30); MONOCYTES % (AUTO) 6.3 % (2.0-12.0); NEUTROPHILS # (AUTO) 3.7 /CMM (1.8-8.9); NEUTROPHILS % (AUTO) 55.1 % (43.0-81.0); PLATELET COUNT (AUTO) 287 /CMM (150-450); RED BLOOD CELL COUNT(AUTO) 5.12 MIL/uL (4.5-6.0); WHITE BLOOD COUNT (AUTO) 6.8 K/uL (4.3-11.0)
[2019-11-07 15:08] LABS: APPEARANCE,URINE Clear (CLEAR); BILIRUBIN,URINE Negative (NEGATIVE); BLOOD, URINE Negative Ery/uL (NEGATIVE); COLOR,URINE Yellow (YELLOW); KETONES,URINE Negative (NEGATIVE); LEUKOCYTE ESTERASE ,URINE Small (NEGATIVE); NITRITE, URINE Negative (NEGATIVE); PH,URINE 5.5 (5.0-8.0); PROTEIN,URINE Negative (NEGATIVE); UGLUCOSE Negative (NEGATIVE); UROBILINOGEN,URINE 0.2 EU/dL (0.2)
--- NOTE | 2019-11-07 15:10 | NUR ---
security at bedside and wand the patient
[2019-11-07] MEDS ORDERED: LORAZEPAM 1 MG TABLET ONE (15:11)
[2019-11-07 15:15] LABS: CALCIUM, SERUM 8.9 mg/dL (8.5-10.1); CARBON DIOXIDE 24 mmol/L (21-32); CHLORIDE 104 mmol/L (98-107); GLUCOSE 82 mg/dL (74-106); POTASSIUM 3.6 mmol/L (3.5-5.1); SODIUM SERUM 140 mmol/L (136-145); UREA NITROGEN, BLOOD 10 mg/dL (7-18)
[2019-11-07] MEDS: LORAZEPAM 1 MG TABLET PO ONE (15:15)
[2019-11-07 15:16] LABS: BACTERIA,URINE Few /HPF (None Seen); MUCUS,URINE Few /LPF (None Seen); RBC,URINE 0-2 /HPF (0-2); SQUAMOUS EPITHELIAL CELL,UR Few /HPF (None Seen)
[2019-11-07 15:27] LABS: ALANINE AMINOTRANSFERASE 25 U/L (12-78); ALBUMIN 3.5 g/dL (3.4-5.0); ALCOHOL, BLOOD < 3 mg/dL (0-0); ALKALINE PHOSPHATASE 96 U/L (46-116); ASPARTATE AMINOTRANSFERASE 14 U/L (15-37); BILIRUBIN,DIRECT 0.1 mg/dL (0.0-0.2); BILIRUBIN,TOTAL 0.3 mg/dL (0.2-1.0); TOTAL PROTEIN, SERUM 7.2 g/dL (6.4-8.2)
[2019-11-07 15:28] LABS: ACETAMINOPHEN < 2 ug/ml (10-30); SALICYLATE < 2.8 mg/dL (2.8-20.0)
--- NOTE | 2019-11-07 16:18 | NUR ---
DATA ENTRY SPECIALIST contacted Dmitry at [facility] and initiated voluntary psychiatric admission. DATA ENTRY SPECIALIST conducted chart review and faxed clinicals to [facility] intake dept. Per Dmitry, they will have a bed for the pt at [place]. BAM updated Yannick in ED.
--- NOTE | 2019-11-07 16:55 | NUR ---
Received a call from C[facility] intake at [facility]. Patient is accepted, under Dr. Mtz/Maryana call for report [phone]
--- NOTE | 2019-11-07 18:19 | NUR ---
CALLED [id number]. WILL CALL BACK WITH AMBULANCE ETA. REFERENCE NUMBER [id number].
--- NOTE | 2019-11-07 18:26 | NUR ---
called [facility] and report given to Daphne CONNER for sanket.
[2019-11-07 18:28] VITALS: BP 125/71
--- NOTE | 2019-11-07 19:11 | NUR ---
FOLLOWED UP WITH CALL THE CAR ABOUT AN AMBULANCE TRANSFER. [facility] GAVE A 10 MINUTE ETA.
--- NOTE | 2019-11-07 19:51 | NUR ---
[facility]BULANCE AT BEDSIDE FOR TRANSPORT TO [facility].
== END 2019-11-07 19:52 ==
LOC: ER 14:38
DX: R45.851 Suicidal ideations (principal); F15.10 Other stimulant abuse, uncomplicated; G43.909 Migraine, unspecified, not intractable, without status migrainosus; K21.9 Gastro-esophageal reflux disease without esophagitis; M81.0 Age-related osteoporosis without current pathological fracture; M06.9 Rheumatoid arthritis, unspecified; F32.9 Major depressive disorder, single episode, unspecified; F17.200 Nicotine dependence, unspecified, uncomplicated; F90.9 Attention-deficit hyperactivity disorder, unspecified type; Z88.8 Allergy status to other drugs, medicaments and biological substances; Z79.899 Other long term (current) drug therapy
CPT/HCPCS: 36415; 80048; 80076; 80305; 80307; 80329; 81001; 85025; 87086; 99285; G0480; 81000-TC

== ENCOUNTER 2019-11-16 11:07 | Emergency (ER) | payer OTHER ==
[~2019-11-16] VITALS: Ht 167.6 cm; Wt 68.0 kg
--- NOTE | 2019-11-16 11:10 | NUR ---
PT BIB SELF C/O SI "I WANT TO OD ON HEROIN" PT IS AAOX4, NOT IN RESPIRATORY DISTRESS, V/S STABLE, KEPT RESTED AND COMFORTABLE, WILL CONTINUE TO MONITOR, SITTER AT BEDSIDE.
--- NOTE | 2019-11-16 11:17 | NUR ---
PT SEEN AND EXAMINED BY .
--- NOTE | 2019-11-16 11:20 | NUR ---
URINAL GIVEN BUT UNABLE TO PROVIDE URINE SPECIMEN THIS TIME.
--- NOTE | 2019-11-16 11:28 | NUR ---
ER PHLEB AT BEDSIDE FOR BLOOD DRAW.
[2019-11-16 11:33] LABS: BASOPHILS % (AUTO) 0.4 % (0.0-2.0); EOSINOPHILS % (AUTO) 0.4 % (0.0-6.0); HEMATOCRIT 47 % (39-51); HEMOGLOBIN 15.7 g/dL (13.5-17.5); LYMPHOCYTES # (AUTO) 2.5 /CMM (0.8-4.8); LYMPHOCYTES % (AUTO) 20.3 % (20.0-44.0); MEAN CORPUSCULAR HGB CONC 34 g/dl (31.0-36.0); MEAN CORPUSCULAR VOLUME 92 fL (80-96); MONOCYTES # (AUTO) 1.2 /CMM (0.1-1.30); MONOCYTES % (AUTO) 9.5 % (2.0-12.0); NEUTROPHILS # (AUTO) 8.4 /CMM (1.8-8.9); NEUTROPHILS % (AUTO) 69.4 % (43.0-81.0); PLATELET COUNT (AUTO) 308 /CMM (150-450); RED BLOOD CELL COUNT(AUTO) 5.07 MIL/uL (4.5-6.0); WHITE BLOOD COUNT (AUTO) 12.1 K/uL (4.3-11.0)
[2019-11-16 11:42] LABS: CALCIUM, SERUM 9.5 mg/dL (8.5-10.1); CARBON DIOXIDE 27 mmol/L (21-32); CHLORIDE 102 mmol/L (98-107); CREATININE 1.2 mg/dL (0.6-1.3); GLUCOSE 102 mg/dL (74-106); POTASSIUM 3.9 mmol/L (3.5-5.1); SODIUM SERUM 140 mmol/L (136-145); UREA NITROGEN, BLOOD 18 mg/dL (7-18)
[2019-11-16 11:50] LABS: ALANINE AMINOTRANSFERASE 33 U/L (12-78); ALBUMIN 4.4 g/dL (3.4-5.0); ALCOHOL, BLOOD < 3 mg/dL (0-0); ALKALINE PHOSPHATASE 108 U/L (46-116); ASPARTATE AMINOTRANSFERASE 26 U/L (15-37); BILIRUBIN,DIRECT 0.2 mg/dL (0.0-0.2); BILIRUBIN,TOTAL 1.1 mg/dL (0.2-1.0); TOTAL PROTEIN, SERUM 8.1 g/dL (6.4-8.2)
[2019-11-16 11:51] LABS: ACETAMINOPHEN 0 ug/ml (10-30); SALICYLATE 1.7 mg/dL (2.8-20.0)
--- NOTE | 2019-11-16 11:58 | NUR ---
Patient calm @ this time non distress .
--- NOTE | 2019-11-16 12:25 | NUR ---
Pt is a 59 year old male who came to [facility] complaining of SI with a plan to OD on heroin. CORPORATE ETHICS OFFICER is familiar with the pt from many ED visits. CORPORATE ETHICS OFFICER conducted chart review and faxed clinicals to [facility] intake for voluntary psychiatric admission. CORPORATE ETHICS OFFICER updated Yannick in ED regarding clinicals faxed and informed him to f/u with [facility] intake dept.
--- NOTE | 2019-11-16 12:42 | NUR ---
URINE SPECIMEN COLLECTED AND SENT TO LAB.
--- NOTE | 2019-11-16 13:00 | NUR ---
Patient awake alert nomn distress he follows noted ambulatory no hallucination no agitation sitter @ bedside continue to monitor
[2019-11-16 13:09] LABS: BILIRUBIN,URINE Negative (NEGATIVE); BLOOD, URINE Negative Ery/uL (NEGATIVE); COLOR,URINE Yellow (YELLOW); KETONES,URINE 15 (NEGATIVE); LEUKOCYTE ESTERASE ,URINE Trace (NEGATIVE); NITRITE, URINE Negative (NEGATIVE); PH,URINE 5.5 (5.0-8.0); PROTEIN,URINE Negative (NEGATIVE); UGLUCOSE Negative (NEGATIVE); UROBILINOGEN,URINE 0.2 EU/dL (0.2)
[2019-11-16 13:14] LABS: APPEARANCE,URINE SLIGHTLY CLOUDY (CLEAR)
[2019-11-16 13:18] LABS: BACTERIA,URINE None seen /HPF (None Seen); SPERM,URINE Few /HPF (None Seen); SQUAMOUS EPITHELIAL CELL,UR Few /HPF (None Seen); URINE AMORPHOUS URATE Few /HPF (None Seen)
[2019-11-16 13:19] LABS: MUCUS,URINE Few /LPF (None Seen)
--- NOTE | 2019-11-16 14:18 | NUR ---
Spoke to Harika rios accepted to [facility] under Dr. Mares,call report [phone] ext [phone]
[2019-11-16 14:23] VITALS: BP 134/67
--- NOTE | 2019-11-16 14:32 | NUR ---
Called report to denise price spoke to Sudarshan Pascual report given
--- NOTE | 2019-11-16 14:50 | NUR ---
CALLED CALL THE CAR FOR TRANSPORT TO [facility]. ETA 90 MINUTES. [phone]. RESERVATION NUMBER #[id number].
--- NOTE | 2019-11-16 17:11 | NUR ---
[facility] 716 for transport to [facility] belonging given
--- NOTE | 2019-11-16 17:20 | NUR ---
Patient awake declinedto go to [place] explained this facility is the only opening Md @ bedside agrees to transfer .
== END 2019-11-16 17:31 ==
LOC: ER 11:10
DX: R45.851 Suicidal ideations (principal); G43.909 Migraine, unspecified, not intractable, without status migrainosus; K21.9 Gastro-esophageal reflux disease without esophagitis; M81.0 Age-related osteoporosis without current pathological fracture; M06.9 Rheumatoid arthritis, unspecified; F90.9 Attention-deficit hyperactivity disorder, unspecified type; F32.9 Major depressive disorder, single episode, unspecified; F17.200 Nicotine dependence, unspecified, uncomplicated; Z88.8 Allergy status to other drugs, medicaments and biological substances; Z79.899 Other long term (current) drug therapy
CPT/HCPCS: 36415; 80048; 80076; 80305; 80307; 80329; 81001; 85025; 99285; G0480; 81000-TC

== ENCOUNTER 2019-11-21 22:42 | Emergency (ER) | payer OTHER ==
[~2019-11-21] VITALS: Ht 170.2 cm; Wt 86.2 kg
--- NOTE | 2019-11-21 23:24 | NUR ---
BIBSELF C/O SUICIDAL IDEATION WITH PLAN TO OVERDOSE. PT AAOX4. CALM AND COOPERATIVE. RESPIRATIONS EVEN AND UNLABORED. VITAL SIGNS STABLE. AMBULATORY WITH STEADY GAIT. SKIN WARM AND INTACT. NO ACUTE DISTRESS NOTED AT THIS TIME. PT PLACED IN GOWN. BELONGINGS COLLECTED AND PLACED IN PATIENT LOCKER. SITTER AT BEDSIDE. WILL CONTINUE TO MONITOR
[2019-11-21] MEDS ORDERED: OLANZAPINE 5 MG TABLET ONE (23:29)
[2019-11-21] MEDS ORDERED: OLANZAPINE 5 MG TABLET PO ONE (23:30)
--- NOTE | 2019-11-21 23:32 | NUR ---
QUARRY SUPERVISOR DIMENSION STONE AT BEDSIDE FOR BLOOD DRAW
[2019-11-21 23:44] LABS: APPEARANCE,URINE Clear (CLEAR); BILIRUBIN,URINE Negative (NEGATIVE); BLOOD, URINE Negative Ery/uL (NEGATIVE); COLOR,URINE Yellow (YELLOW); KETONES,URINE Negative (NEGATIVE); LEUKOCYTE ESTERASE ,URINE Negative (NEGATIVE); NITRITE, URINE Negative (NEGATIVE); PH,URINE 5.5 (5.0-8.0); PROTEIN,URINE Negative (NEGATIVE); UGLUCOSE Negative (NEGATIVE); UROBILINOGEN,URINE 0.2 EU/dL (0.2)
[2019-11-21 23:49] LABS: BASOPHILS # (AUTO) 0.1 /CMM (0.0-0.2); BASOPHILS % (AUTO) 0.5 % (0.0-2.0); EOSINOPHILS % (AUTO) 1.3 % (0.0-6.0); HEMATOCRIT 47 % (39-51); HEMOGLOBIN 16.3 g/dL (13.5-17.5); LYMPHOCYTES # (AUTO) 2.8 /CMM (0.8-4.8); LYMPHOCYTES % (AUTO) 28.9 % (20.0-44.0); MEAN CORPUSCULAR HGB CONC 34 g/dl (31.0-36.0); MEAN CORPUSCULAR VOLUME 90 fL (80-96); MONOCYTES # (AUTO) 0.8 /CMM (0.1-1.30); MONOCYTES % (AUTO) 8.9 % (2.0-12.0); NEUTROPHILS # (AUTO) 5.7 /CMM (1.8-8.9); NEUTROPHILS % (AUTO) 60.4 % (43.0-81.0); PLATELET COUNT (AUTO) 307 /CMM (150-450); RED BLOOD CELL COUNT(AUTO) 5.25 MIL/uL (4.5-6.0); WHITE BLOOD COUNT (AUTO) 9.5 K/uL (4.3-11.0)
[2019-11-21 23:51] LABS: CALCIUM, SERUM 9.4 mg/dL (8.5-10.1); CARBON DIOXIDE 25 mmol/L (21-32); CHLORIDE 103 mmol/L (98-107); GLUCOSE 99 mg/dL (74-106); POTASSIUM 3.9 mmol/L (3.5-5.1); SODIUM SERUM 139 mmol/L (136-145); UREA NITROGEN, BLOOD 19 mg/dL (7-18)
[2019-11-21 23:56] LABS: ALANINE AMINOTRANSFERASE 27 U/L (12-78); ALBUMIN 4.2 g/dL (3.4-5.0); ALCOHOL, BLOOD < 3 mg/dL (0-0); ALKALINE PHOSPHATASE 102 U/L (46-116); ASPARTATE AMINOTRANSFERASE 21 U/L (15-37); BILIRUBIN,DIRECT 0.1 mg/dL (0.0-0.2); BILIRUBIN,TOTAL 0.5 mg/dL (0.2-1.0)
[2019-11-21 23:57] LABS: ACETAMINOPHEN < 2 ug/ml (10-30); SALICYLATE 2.3 mg/dL (2.8-20.0)
--- NOTE | 2019-11-22 00:09 | NUR ---
PT PROVIDED WITH FOOD AND WATER.
--- NOTE | 2019-11-22 02:13 | NUR ---
Patient is resting comfortably in bed. Easily aroused. VSS.
--- NOTE | 2019-11-22 02:30 | NUR ---
PER HERMINIA FROM [facility], NO BEDS AVAILABLE AT THIS TIME
--- NOTE | 2019-11-22 04:18 | NUR ---
PT RESTING COMFORTABLY. VSS.
--- NOTE | 2019-11-22 06:44 | NUR ---
PT RESTING, WATCHING TV. VSS. ORDERED FOOD FOR PT.
--- NOTE | 2019-11-22 07:31 | NUR ---
patient in bed asleep, easily arousable by voice, hooked to monitor, vss, sitter at bedside, suicide precaution observed. will continue to monitor accordingly, kept safe and comfortable.
--- NOTE | 2019-11-22 10:53 | NUR ---
CALLED CALL A CAR. CONFIRMATION # [phone]. 1-2 HOURS ETA.
--- NOTE | 2019-11-22 11:19 | NUR ---
REPORT GIVEN TO EMT FOR PT TRANSFER TO [facility].
[2019-11-22 11:21] VITALS: BP 133/71
== END 2019-11-22 11:45 ==
LOC: ER 22:44
DX: R45.851 Suicidal ideations (principal); F15.10 Other stimulant abuse, uncomplicated; F17.210 Nicotine dependence, cigarettes, uncomplicated; G43.909 Migraine, unspecified, not intractable, without status migrainosus; K21.9 Gastro-esophageal reflux disease without esophagitis; F32.9 Major depressive disorder, single episode, unspecified; F90.9 Attention-deficit hyperactivity disorder, unspecified type; Z88.8 Allergy status to other drugs, medicaments and biological substances; Z79.899 Other long term (current) drug therapy
CPT/HCPCS: 36415; 80048; 80076; 80305; 80307; 80329; 81001; 85025; 99285; 99406; G0480; 81000-TC

== ENCOUNTER 2019-12-09 23:09 | Emergency (ER) | payer OTHER ==
[~2019-12-09] VITALS: Ht 170.2 cm; Wt 86.2 kg
--- NOTE | 2019-12-09 23:53 | NUR ---
BIBS FOR C/O SI PLANNING ON HEROIN OVERDOSE . PT IS WILLING TO GO A PSYCH HOSPITAL VOLUNTARY. ALSO W/ C/O ORAL PAIN. ALERT AND AWAKE. BREATHING EVENLY. . AMBULATORY TO BED 15. PT WAS PLACED ON A HOSPITAL GOWN. ALL BELONGINGS WERE TAKEN AWAY AND PLACED IN A SAFE LOCKED. PT WAS PLACED ON A MONITOR ,. VSS. PT REMAINED ON A CLOSE SUPERVISION OF A SITTER FOR SAFETY. SI PRECAUTION IN PLACE. WILL CONT TO MONITOR.
--- NOTE | 2019-12-09 23:58 | NUR ---
URINE COLLECTED AND SENT TO LAB
[2019-12-10 00:06] LABS: BASOPHILS % (AUTO) 0.4 % (0.0-2.0); EOSINOPHILS % (AUTO) 2.4 % (0.0-6.0); HEMATOCRIT 43 % (39-51); HEMOGLOBIN 14.6 g/dL (13.5-17.5); LYMPHOCYTES # (AUTO) 2.9 /CMM (0.8-4.8); LYMPHOCYTES % (AUTO) 28.6 % (20.0-44.0); MEAN CORPUSCULAR HGB CONC 34 g/dl (31.0-36.0); MEAN CORPUSCULAR VOLUME 91 fL (80-96); MONOCYTES # (AUTO) 0.9 /CMM (0.1-1.30); MONOCYTES % (AUTO) 9.3 % (2.0-12.0); NEUTROPHILS % (AUTO) 59.3 % (43.0-81.0); PLATELET COUNT (AUTO) 340 /CMM (150-450); RED BLOOD CELL COUNT(AUTO) 4.77 MIL/uL (4.5-6.0); WHITE BLOOD COUNT (AUTO) 10.2 K/uL (4.3-11.0)
[2019-12-10 00:06] LABS: APPEARANCE,URINE Clear (CLEAR); BILIRUBIN,URINE Negative (NEGATIVE); BLOOD, URINE Negative Ery/uL (NEGATIVE); COLOR,URINE Yellow (YELLOW); KETONES,URINE Negative (NEGATIVE); LEUKOCYTE ESTERASE ,URINE Trace (NEGATIVE); NITRITE, URINE Negative (NEGATIVE); PH,URINE 6.5 (5.0-8.0); PROTEIN,URINE 30 mg/dl (NEGATIVE); UGLUCOSE Negative (NEGATIVE)
[2019-12-10 00:58] LABS: CALCIUM, SERUM 8.6 mg/dL (8.5-10.1); CARBON DIOXIDE 25 mmol/L (21-32); CHLORIDE 102 mmol/L (98-107); CREATININE 0.9 mg/dL (0.6-1.3); GLUCOSE 104 mg/dL (74-106); POTASSIUM 3.7 mmol/L (3.5-5.1); SODIUM SERUM 139 mmol/L (136-145); UREA NITROGEN, BLOOD 14 mg/dL (7-18)
[2019-12-10 01:04] LABS: ALANINE AMINOTRANSFERASE 21 U/L (12-78); ALBUMIN 3.8 g/dL (3.4-5.0); ALCOHOL, BLOOD < 3 mg/dL (0-0); ALKALINE PHOSPHATASE 98 U/L (46-116); ASPARTATE AMINOTRANSFERASE 18 U/L (15-37); BILIRUBIN,DIRECT 0.1 mg/dL (0.0-0.2); BILIRUBIN,TOTAL 0.5 mg/dL (0.2-1.0); TOTAL PROTEIN, SERUM 7.2 g/dL (6.4-8.2)
[2019-12-10 01:08] LABS: ACETAMINOPHEN < 2 ug/ml (10-30); SALICYLATE 1.5 mg/dL (2.8-20.0)
[2019-12-10 01:22] LABS: BACTERIA,URINE None seen /HPF (None Seen); RBC,URINE 0-2 /HPF (0-2); SQUAMOUS EPITHELIAL CELL,UR Few /HPF (None Seen)
--- NOTE | 2019-12-10 01:56 | NUR ---
CALL FROM [facility]. NO BEDS AVAILABLE.
--- NOTE | 2019-12-10 04:16 | NUR ---
PT RESTING COMFORTABLY IN BED. VSS. NO ACUTE DISTRESS NOTED. SITTER AT BEDSIDE FOR SAFETY
--- NOTE | 2019-12-10 05:48 | NUR ---
PT ASLEEP IN BED. VSS. NO ACUTE DISTRESS NOTED. SITTER AT BEDSIDE FOR SAFETY
--- NOTE | 2019-12-10 08:45 | NUR ---
accepted at [facility] intake Dr. Stahl/Cameron unit # [phone]
--- NOTE | 2019-12-10 08:57 | NUR ---
report given to RN for sanket
[2019-12-10] MEDS ORDERED: IBUPROFEN 200 MG TABLET ONE (09:56)
[2019-12-10] MEDS ORDERED: IBUPROFEN 600 MG TABLET PO ONE (10:00)
--- NOTE | 2019-12-10 10:05 | NUR ---
CALLED [facility] [phone] TAB ETA 1015.
[2019-12-10 10:32] VITALS: BP 138/81
--- NOTE | 2019-12-10 10:33 | NUR ---
patient picked up by private ambulance going to [facility] in no distress.
== END 2019-12-10 10:33 ==
LOC: ER 23:25
DX: R45.851 Suicidal ideations (principal); F32.9 Major depressive disorder, single episode, unspecified; G43.909 Migraine, unspecified, not intractable, without status migrainosus; K21.9 Gastro-esophageal reflux disease without esophagitis; F90.9 Attention-deficit hyperactivity disorder, unspecified type; Z88.8 Allergy status to other drugs, medicaments and biological substances; Z79.899 Other long term (current) drug therapy
CPT/HCPCS: 36415; 80048; 80076; 80305; 80307; 80329; 81001; 85025; 99285; G0480; 81000-TC

== ENCOUNTER 2019-12-19 11:18 | Emergency (ER) | payer OTHER ==
[~2019-12-19] VITALS: Ht 170.2 cm; Wt 88.5 kg
--- NOTE | 2019-12-19 11:41 | NUR ---
self presents to ed. c/o suicidal thoughts w/ plan to od on heroin. seen in ed multiple times w/ same complaints. pt wants voluntary psych admit. sitter at bedside. awaiting md sorensen.
--- NOTE | 2019-12-19 11:44 | NUR ---
dr burnham at bedside for eval.
--- NOTE | 2019-12-19 12:00 | NUR ---
label tacker at bedside for blood draw.
[2019-12-19 12:05] LABS: EOSINOPHILS % (AUTO) 1.9 % (0.0-6.0); HEMOGLOBIN 16.4 g/dL (13.5-17.5); MONOCYTES # (AUTO) 0.9 /CMM (0.1-1.30)
[2019-12-19 12:16] LABS: BASOPHILS # (AUTO) 0.1 /CMM (0.0-0.2); BASOPHILS % (AUTO) 0.6 % (0.0-2.0); HEMATOCRIT 49 % (39-51); LYMPHOCYTES # (AUTO) 3.3 /CMM (0.8-4.8); LYMPHOCYTES % (AUTO) 32.9 % (20.0-44.0); MEAN CORPUSCULAR HGB CONC 34 g/dl (31.0-36.0); MEAN CORPUSCULAR VOLUME 92 fL (80-96); MONOCYTES % (AUTO) 9.3 % (2.0-12.0); NEUTROPHILS # (AUTO) 5.6 /CMM (1.8-8.9); NEUTROPHILS % (AUTO) 55.3 % (43.0-81.0); PLATELET COUNT (AUTO) 289 /CMM (150-450); RED BLOOD CELL COUNT(AUTO) 5.28 MIL/uL (4.5-6.0); WHITE BLOOD COUNT (AUTO) 10.1 K/uL (4.3-11.0)
[2019-12-19 12:20] LABS: ALANINE AMINOTRANSFERASE 25 U/L (12-78); ALCOHOL, BLOOD < 3 mg/dL (0-0); ALKALINE PHOSPHATASE 108 U/L (46-116); ASPARTATE AMINOTRANSFERASE 27 U/L (15-37); BILIRUBIN,DIRECT 0.1 mg/dL (0.0-0.2); BILIRUBIN,TOTAL 0.8 mg/dL (0.2-1.0); CALCIUM, SERUM 9.3 mg/dL (8.5-10.1); CARBON DIOXIDE 27 mmol/L (21-32); CHLORIDE 101 mmol/L (98-107); GLUCOSE 85 mg/dL (74-106); POTASSIUM 3.8 mmol/L (3.5-5.1); SODIUM SERUM 136 mmol/L (136-145); UREA NITROGEN, BLOOD 19 mg/dL (7-18)
[2019-12-19 12:21] LABS: ACETAMINOPHEN 0 ug/ml (10-30); SALICYLATE 1.6 mg/dL (2.8-20.0)
--- NOTE | 2019-12-19 12:24 | NUR ---
urine specimen collected sent to lab.
--- NOTE | 2019-12-19 12:49 | NUR ---
Social Service consult requested for voluntary psychiatric admission. NICHELLE is familiar with the pt from several ED visits for the same complaint. Pt came to [facility] requested voluntary psychiatric hospitalization stating he is suicidal with a plan to OD on heroin. SOLID STATE TESTER contacted Dmitry at [facility] and initiated voluntary psychiatric hospitalization. Per Dmitry, they will hold a bed for the pt. SOLID STATE TESTER updated ED CRN Ron. [facility] to fax clinicals once pt is medically cleared and labs are available.
--- NOTE | 2019-12-19 13:14 | NUR ---
SW received a call from ED CRN Gener stating, pt is medically cleared. SILO MAN conducted chart review and faxed clinicals to [facility] intake dept.
[2019-12-19] MEDS ORDERED: LORAZEPAM 0.5 MG TABLET ONE ×2 (13:18→13:43)
[2019-12-19] MEDS ORDERED: LORAZEPAM 0.5 MG TABLET PO ONE (13:30)
[2019-12-19] MEDS ORDERED: LORAZEPAM 1 MG TABLET PO STA (13:36)
--- NOTE | 2019-12-19 14:28 | NUR ---
BAM received a call from Madonna at [facility] intake informing BAM, pt has been accepted to [facility]. Room 210/B. Call report to open soaper tender Chris at . Yannick in ED notified.
--- NOTE | 2019-12-19 14:44 | NUR ---
CALLED KALEB DAVILA CALL THE CAR FOR TRANSPORT TO [facility]. REFERENCE NUMBER [id number].
[2019-12-19 15:12] VITALS: BP 132/87
--- NOTE | 2019-12-19 15:17 | NUR ---
report given to loco, nursing supp at count includes the [facility]. awaiting transport ambulance.
--- NOTE | 2019-12-19 16:27 | NUR ---
RECIEVED A CALL FROM CALL THE CAR. [facility] ETA 30 MINUTES.
--- NOTE | 2019-12-19 17:12 | NUR ---
transported to [facility] in stable condition.
== END 2019-12-19 17:13 ==
LOC: ER 11:18
DX: R45.851 Suicidal ideations (principal); F41.9 Anxiety disorder, unspecified; F15.10 Other stimulant abuse, uncomplicated; G43.909 Migraine, unspecified, not intractable, without status migrainosus; K21.9 Gastro-esophageal reflux disease without esophagitis; M81.0 Age-related osteoporosis without current pathological fracture; M06.9 Rheumatoid arthritis, unspecified; F32.9 Major depressive disorder, single episode, unspecified; F17.200 Nicotine dependence, unspecified, uncomplicated; Z88.8 Allergy status to other drugs, medicaments and biological substances; Z79.899 Other long term (current) drug therapy
CPT/HCPCS: 36415; 80048; 80076; 80305; 80307; 80329; 85025; 99285; G0480

== ENCOUNTER 2019-12-29 16:19 | Emergency (ER) | payer OTHER ==
[~2019-12-29] VITALS: Ht 165.1 cm; Wt 85.3 kg
[2019-12-29 18:01] LABS: BASOPHILS # (AUTO) 0.1 /CMM (0.0-0.2); BASOPHILS % (AUTO) 0.6 % (0.0-2.0); HEMATOCRIT 48 % (39-51); HEMOGLOBIN 16.1 g/dL (13.5-17.5); LYMPHOCYTES # (AUTO) 3.3 /CMM (0.8-4.8); LYMPHOCYTES % (AUTO) 28.1 % (20.0-44.0); MEAN CORPUSCULAR HGB CONC 33 g/dl (31.0-36.0); MEAN CORPUSCULAR VOLUME 92 fL (80-96); MONOCYTES # (AUTO) 1.1 /CMM (0.1-1.30); MONOCYTES % (AUTO) 9.7 % (2.0-12.0); NEUTROPHILS # (AUTO) 6.9 /CMM (1.8-8.9); NEUTROPHILS % (AUTO) 59.6 % (43.0-81.0); PLATELET COUNT (AUTO) 280 /CMM (150-450); RED BLOOD CELL COUNT(AUTO) 5.29 MIL/uL (4.5-6.0); WHITE BLOOD COUNT (AUTO) 11.6 K/uL (4.3-11.0)
--- NOTE | 2019-12-29 18:13 | NUR ---
BIBS, WALKED IN TO ER. TO ER BED 12. AAOX4. NOT IN RESP DISTRE. AMBULATORY. CAME IN FOR SUICIDAL IDEATION W/ PLAN TO OD WITH HEROIN. DENIES HOMICIDAL IDEATION. DENIES AUDITORY AND VISUAL HALLUCINATIONS. PT IS GOWN W/ ERINGS PLACED IN THE LOCKER LOCATED IN UTILITY ROOM. 1:1 SITTER AT BEDSIDE. PT IS SEEKING VOLUNTARY IN PATIENT ADMISSION. BLOOD DRAWN. FOOD PROVIDED.
[2019-12-29 18:34] LABS: ALANINE AMINOTRANSFERASE 32 U/L (12-78); ALBUMIN 4.6 g/dL (3.4-5.0); ALKALINE PHOSPHATASE 109 U/L (46-116); ASPARTATE AMINOTRANSFERASE 25 U/L (15-37); BILIRUBIN,DIRECT 0.2 mg/dL (0.0-0.2); BILIRUBIN,TOTAL 0.8 mg/dL (0.2-1.0); CALCIUM, SERUM 9.5 mg/dL (8.5-10.1); CARBON DIOXIDE 18 mmol/L (21-32); CHLORIDE 99 mmol/L (98-107); CREATININE 1.2 mg/dL (0.6-1.3); GLUCOSE 126 mg/dL (74-106); POTASSIUM 3.6 mmol/L (3.5-5.1); SALICYLATE 2.8 mg/dL (2.8-20.0); SODIUM SERUM 134 mmol/L (136-145); UREA NITROGEN, BLOOD 23 mg/dL (7-18)
[2019-12-29 18:37] LABS: ACETAMINOPHEN < 2 ug/ml (10-30); ALCOHOL, BLOOD < 3 mg/dL (0-0)
[2019-12-29 19:09] LABS: APPEARANCE,URINE Slightly Cloudy (CLEAR); BILIRUBIN,URINE SMALL (NEGATIVE); BLOOD, URINE Negative Ery/uL (NEGATIVE); COLOR,URINE Dark (YELLOW); KETONES,URINE Negative (NEGATIVE); LEUKOCYTE ESTERASE ,URINE Negative (NEGATIVE); NITRITE, URINE Negative (NEGATIVE); PROTEIN,URINE 100 mg/dl (NEGATIVE); UGLUCOSE Negative (NEGATIVE); UROBILINOGEN,URINE 0.2 EU/dL (0.2)
[2019-12-29 19:39] LABS: BACTERIA,URINE Few /HPF (None Seen); HYALINE CASTS, URINE Few /LPF (None Seen); RBC,URINE 0-2 /HPF (0-2); SQUAMOUS EPITHELIAL CELL,UR Few /HPF (None Seen); WBC,URINE 0-2 /HPF (0-3)
--- NOTE | 2019-12-29 20:02 | NUR ---
CLINICAL FAXED TO [facility] FOR VOLUNTARY PSYCH ADMISSION.
[2019-12-29 20:35] VITALS: BP 133/62
--- NOTE | 2019-12-29 21:31 | NUR ---
PT VERBALIZE FEELING BETTER AND DENIES SI/ HI AT THIS TIME. ER PA MADE AWARE. PT REQUESTING TO BE DISCHARGE HOME AT THIS TIME.
--- NOTE | 2019-12-29 21:52 | NUR ---
Judy jacques in [facility] - 12/29/19 at 2155 by KIM SPOKE TO CLINT FROM [facility] STATES NO BEDS AVAILABLE BEDS AT [facility] AT THIS TIME.
--- NOTE | 2019-12-29 21:55 | NUR ---
PT VERBALIZED THAT HE IS FEELING BETTER AND DENIES TO BE SUICIDAL ANYMORE AND WANT TO BE DISCHARGED
--- NOTE | 2019-12-29 21:59 | NUR ---
Note sawyer in [facility] - 12/29/19 at 2203 by KIM PT NOT IN ROOM. PT ELOPED. ER PA MADE AWARE. CHECKED EVERY ROOM IN ER AND RESTROOM UNABLE TO FIND PT.
--- NOTE | 2019-12-29 22:04 | NUR ---
PT REFUSE DISCHARGE INSTRUCTION. PT LEFT ER AMBULATORY WITH STEADY GAIT NOTED.
--- NOTE | 2019-12-29 22:05 | NUR ---
Patient discharged to home in stable condition. ACI was refused by the patient but verbal instruction given. Patient verbalizes understanding of instruction. Pt ambulatory with a steady gait
== END 2019-12-29 22:06 | disposition home or self-care (01) ==
LOC: ER 16:21
DX: R45.851 Suicidal ideations (principal); G43.909 Migraine, unspecified, not intractable, without status migrainosus; K21.9 Gastro-esophageal reflux disease without esophagitis; F90.9 Attention-deficit hyperactivity disorder, unspecified type; F32.9 Major depressive disorder, single episode, unspecified; Z88.8 Allergy status to other drugs, medicaments and biological substances; Z79.899 Other long term (current) drug therapy
CPT/HCPCS: 36415; 80048; 80076; 80305; 80307; 80329; 81001; 85025; 99285; G0480; 81000-TC

== ENCOUNTER 2020-05-22 23:08 | Emergency (ER) | payer OTHER ==
[~2020-05-22] VITALS: Ht 167.6 cm; Wt 82.6 kg
--- NOTE | 2020-05-23 00:01 | NUR ---
PARASID SWABBED, SENT TO LAB.
[2020-05-23 00:21] LABS: BILIRUBIN,URINE SMALL (NEGATIVE); COLOR,URINE YELLOW (YELLOW); LEUKOCYTE ESTERASE ,URINE Trace (NEGATIVE); NITRITE, URINE Negative (NEGATIVE); PH,URINE 5.5 (5.0-8.0); PROTEIN,URINE Negative (NEGATIVE); UGLUCOSE Negative (NEGATIVE); UROBILINOGEN,URINE 0.2 EU/dL (0.2)
[2020-05-23 00:22] LABS: BACTERIA,URINE Few /HPF (None Seen); RBC,URINE NONE SEEN /HPF (0-2); SQUAMOUS EPITHELIAL CELL,UR Few /HPF (None Seen)
[2020-05-23 00:24] LABS: BASOPHILS % (AUTO) 0.5 % (0.0-2.0); EOSINOPHILS % (AUTO) 2.3 % (0.0-6.0); HEMATOCRIT 42 % (39-51); HEMOGLOBIN 14.1 g/dL (13.5-17.5); LYMPHOCYTES # (AUTO) 3.2 /CMM (0.8-4.8); LYMPHOCYTES % (AUTO) 38.7 % (20.0-44.0); MEAN CORPUSCULAR HGB CONC 34 g/dl (31.0-36.0); MEAN CORPUSCULAR VOLUME 88 fL (80-96); MONOCYTES # (AUTO) 0.7 /CMM (0.1-1.30); MONOCYTES % (AUTO) 7.9 % (2.0-12.0); NEUTROPHILS # (AUTO) 4.2 /CMM (1.8-8.9); NEUTROPHILS % (AUTO) 50.6 % (43.0-81.0); PLATELET COUNT (AUTO) 325 /CMM (150-450); RED BLOOD CELL COUNT(AUTO) 4.72 MIL/uL (4.5-6.0); WHITE BLOOD COUNT (AUTO) 8.3 K/uL (4.3-11.0)
[2020-05-23 00:43] LABS: CALCIUM, SERUM 8.6 mg/dL (8.5-10.1); CARBON DIOXIDE 22 mmol/L (21-32); CHLORIDE 104 mmol/L (98-107); CREATININE 0.9 mg/dL (0.6-1.3); GLUCOSE 106 mg/dL (74-106); POTASSIUM 3.7 mmol/L (3.5-5.1); SODIUM SERUM 138 mmol/L (136-145); UREA NITROGEN, BLOOD 20 mg/dL (7-18)
[2020-05-23 00:54] LABS: ALANINE AMINOTRANSFERASE 27 U/L (12-78); ALBUMIN 3.5 g/dL (3.4-5.0); ALCOHOL, BLOOD < 3 mg/dL (0-0); ALKALINE PHOSPHATASE 91 U/L (46-116); ASPARTATE AMINOTRANSFERASE 22 U/L (15-37); BILIRUBIN,DIRECT 0.2 mg/dL (0.0-0.2); BILIRUBIN,TOTAL 0.5 mg/dL (0.2-1.0); TOTAL PROTEIN, SERUM 7.2 g/dL (6.4-8.2)
--- NOTE | 2020-05-23 00:55 | NUR ---
CALL FROM LAB. RAPID COVID NEGATIVE.
[2020-05-23 00:57] LABS: ACETAMINOPHEN 0 ug/ml (10-30)
--- NOTE | 2020-05-23 01:40 | NUR ---
CLINICAL AND FACESHEET FAXED TO [facility] INTAKE FOR VOLUNTARY PSYCH ADMISSION.
--- NOTE | 2020-05-23 02:44 | NUR ---
CALL FROM [facility]. PT ACCEPTED BY DR SANTAMARIA. UNIT 1. # FOR REPORT [phone]
--- NOTE | 2020-05-23 03:01 | NUR ---
[facility] CALL THE CAR CALLED FOR TRANSPORT. [facility] [phone]
--- NOTE | 2020-05-23 05:30 | NUR ---
[facility] ambulance eta 0700
--- NOTE | 2020-05-23 07:34 | NUR ---
report given to UBALDO Wei for continuity of care.
[2020-05-23 08:12] VITALS: BP 114/76
--- NOTE | 2020-05-23 08:13 | NUR ---
Pt going to [facility] Accepted by [facility] Transported by [facility] unit 623 Condition Stable
== END 2020-05-23 08:13 ==
LOC: ER 23:13
DX: R45.851 Suicidal ideations (principal); F15.10 Other stimulant abuse, uncomplicated; Z20.822 Contact with and (suspected) exposure to COVID-19; Z88.8 Allergy status to other drugs, medicaments and biological substances; F90.9 Attention-deficit hyperactivity disorder, unspecified type; M06.9 Rheumatoid arthritis, unspecified; K58.9 Irritable bowel syndrome, unspecified; K21.9 Gastro-esophageal reflux disease without esophagitis; Z86.69 Personal history of other diseases of the nervous system and sense organs
CPT/HCPCS: 36415; 80048; 80076; 80299; 80307; 80320; 81001; 85025; 87426; 99285; C9803; G0480

== ENCOUNTER 2020-07-20 09:19 | Emergency (ER) | payer OTHER ==
[~2020-07-20] VITALS: Ht 167.6 cm; Wt 82.6 kg
--- NOTE | 2020-07-20 09:27 | NUR ---
BEN [address] C/O SUICIDAL IDEATION STATES WANT TO OVERDOSE ON METH. SEEN IN ED MULTIPLE TIMES FOR SAME REASON. STABLE VITALS. NAD NOTED. SITTER AT BEDSIDE.
--- NOTE | 2020-07-20 09:30 | NUR ---
DR SANCHEZ AT BEDSIDE FOR EVAL.
[2020-07-20 09:50] LABS: HEMATOCRIT 44 % (39-51); HEMOGLOBIN 14.8 g/dL (13.5-17.5); MEAN CORPUSCULAR HGB CONC 33 g/dl (31.0-36.0); MEAN CORPUSCULAR VOLUME 91 fL (80-96); NEUTROPHILS % (AUTO) 70.5 % (43.0-81.0); PLATELET COUNT (AUTO) 259 /CMM (150-450); WHITE BLOOD COUNT (AUTO) 9.5 K/uL (4.3-11.0)
[2020-07-20 09:51] LABS: BASOPHILS % (AUTO) 0.4 % (0.0-2.0); LYMPHOCYTES # (AUTO) 2.1 /CMM (0.8-4.8); LYMPHOCYTES % (AUTO) 21.9 % (20.0-44.0); MONOCYTES # (AUTO) 0.6 /CMM (0.1-1.30); MONOCYTES % (AUTO) 6.2 % (2.0-12.0); NEUTROPHILS # (AUTO) 6.7 /CMM (1.8-8.9)
[2020-07-20 10:01] LABS: CALCIUM, SERUM 8.9 mg/dL (8.5-10.1); CARBON DIOXIDE 24 mmol/L (21-32); CHLORIDE 104 mmol/L (98-107); CREATININE 0.8 mg/dL (0.6-1.3); GLUCOSE 99 mg/dL (74-106); SODIUM SERUM 136 mmol/L (136-145); UREA NITROGEN, BLOOD 18 mg/dL (7-18)
[2020-07-20 10:20] LABS: BILIRUBIN,URINE NEGATIVE (NEGATIVE); COLOR,URINE YELLOW (YELLOW); LEUKOCYTE ESTERASE ,URINE TRACE (NEGATIVE); NITRITE, URINE NEGATIVE (NEGATIVE); PH,URINE 5.5 (5.0-8.0); PROTEIN,URINE NEGATIVE (NEGATIVE); UGLUCOSE NEGATIVE (NEGATIVE)
[2020-07-20 10:25] LABS: ALANINE AMINOTRANSFERASE 38 U/L (12-78); ALBUMIN 3.5 g/dL (3.4-5.0); ALKALINE PHOSPHATASE 89 U/L (46-116); ASPARTATE AMINOTRANSFERASE 26 U/L (15-37); BILIRUBIN,DIRECT 0.1 mg/dL (0.0-0.2); BILIRUBIN,TOTAL 0.5 mg/dL (0.2-1.0); TOTAL PROTEIN, SERUM 7.2 g/dL (6.4-8.2)
[2020-07-20 10:27] LABS: ACETAMINOPHEN 0 ug/ml (10-30)
[2020-07-20 10:33] LABS: ALCOHOL, BLOOD < 3 mg/dL (0-0)
[2020-07-20 11:14] VITALS: BP 118/80
--- NOTE | 2020-07-20 13:11 | NUR ---
PT IS AGITATED AND IS REQUESTING DILAUDID SHOT. DR SANCHEZ AWARE. PT WAS OFFERED TYLENOL AND REFUSED STATING "TYLENOL DOES NOT WORK." WANTS TO LEFT ED. REFUSED TO SIGN AMA FORM AND LEFT.
[2020-07-20 13:28] LABS: BACTERIA,URINE Rare /HPF (None Seen); RBC,URINE 0-2 /HPF (0-2); SQUAMOUS EPITHELIAL CELL,UR Rare /HPF (None Seen); WBC,URINE 0-2 /HPF (0-3)
== END 2020-07-20 13:15 | disposition left against medical advice (07) ==
LOC: ER 09:26
DX: R45.851 Suicidal ideations (principal); K21.9 Gastro-esophageal reflux disease without esophagitis; F90.9 Attention-deficit hyperactivity disorder, unspecified type; K58.9 Irritable bowel syndrome, unspecified; Z88.8 Allergy status to other drugs, medicaments and biological substances; M06.9 Rheumatoid arthritis, unspecified; M81.0 Age-related osteoporosis without current pathological fracture; Z79.899 Other long term (current) drug therapy; Z20.822 Contact with and (suspected) exposure to COVID-19; Z87.11 Personal history of peptic ulcer disease
CPT/HCPCS: 36415; 80048; 80076; 80299; 80307; 80320; 81001; 85025; 87426; 99285; C9803; G0480

== ENCOUNTER 2020-07-23 06:39 | Emergency (ER) | payer OTHER ==
[~2020-07-23] VITALS: Ht 167.6 cm; Wt 82.6 kg
--- NOTE | 2020-07-23 06:44 | NUR ---
CALLED FOR SHYANN, NO ANSWER.
--- NOTE | 2020-07-23 06:49 | NUR ---
CALLED FOR SHYANN, NO ANSWER.
[2020-07-23 06:52] VITALS: BP 117/66
--- NOTE | 2020-07-23 10:14 | NUR ---
PT ELOPED FROM ER.
== END 2020-07-23 10:14 | disposition left against medical advice (07) ==
LOC: ER 06:41
DX: F32.9 Major depressive disorder, single episode, unspecified (principal); R45.851 Suicidal ideations; G43.909 Migraine, unspecified, not intractable, without status migrainosus; K21.9 Gastro-esophageal reflux disease without esophagitis; F10.10 Alcohol abuse, uncomplicated; F17.200 Nicotine dependence, unspecified, uncomplicated; Y90.9 Presence of alcohol in blood, level not specified; Z88.8 Allergy status to other drugs, medicaments and biological substances; Z79.899 Other long term (current) drug therapy

== ENCOUNTER 2021-03-21 21:15 | Emergency (ER) | payer OTHER ==
[~2021-03-21] VITALS: Ht 167.6 cm; Wt 74.8 kg
--- NOTE | 2021-03-21 22:09 | NUR ---
STEAM GIGGER ADELSO
[2021-03-21 23:09] LABS: BASOPHILS % (AUTO) 0.3 % (0.0-2.0); EOSINOPHILS % (AUTO) 1.8 % (0.0-6.0); HEMATOCRIT 45 % (39-51); HEMOGLOBIN 14.8 g/dL (13.5-17.5); LYMPHOCYTES # (AUTO) 3.1 K/uL (0.8-4.8); MEAN CORPUSCULAR HGB CONC 33 g/dl (31.0-36.0); MEAN CORPUSCULAR VOLUME 93 fL (80-96); MONOCYTES # (AUTO) 0.8 K/uL (0.1-1.30); MONOCYTES % (AUTO) 9.3 % (2.0-12.0); NEUTROPHILS # (AUTO) 4.6 K/uL (1.8-8.9); NEUTROPHILS % (AUTO) 52.6 % (43.0-81.0); PLATELET COUNT (AUTO) 279 K/uL (150-450); RED BLOOD CELL COUNT(AUTO) 4.84 MIL/uL (4.5-6.0); WHITE BLOOD COUNT (AUTO) 8.7 K/uL (4.3-11.0)
[2021-03-21 23:13] LABS: BILIRUBIN,URINE NEGATIVE (NEGATIVE); COLOR,URINE YELLOW (YELLOW); LEUKOCYTE ESTERASE ,URINE NEGATIVE (NEGATIVE); NITRITE, URINE NEGATIVE (NEGATIVE); PROTEIN,URINE NEGATIVE (NEGATIVE); UGLUCOSE NEGATIVE (NEGATIVE); UROBILINOGEN,URINE 0.2 EU/dL (0.2)
[2021-03-21 23:35] LABS: ALANINE AMINOTRANSFERASE 35 U/L (12-78); ALBUMIN 3.8 g/dL (3.4-5.0); ALKALINE PHOSPHATASE 86 U/L (46-116); ASPARTATE AMINOTRANSFERASE 27 U/L (15-37); BILIRUBIN,DIRECT 0.2 mg/dL (0.0-0.2); BILIRUBIN,TOTAL 0.9 mg/dL (0.2-1.0); CALCIUM, SERUM 8.4 mg/dL (8.5-10.1); CARBON DIOXIDE 26 mmol/L (21-32); CHLORIDE 105 mmol/L (98-107); CREATININE 0.9 mg/dL (0.6-1.3); GLUCOSE 123 mg/dL (74-106); POTASSIUM 3.6 mmol/L (3.5-5.1); SODIUM SERUM 139 mmol/L (136-145); TOTAL PROTEIN, SERUM 7.5 g/dL (6.4-8.2); UREA NITROGEN, BLOOD 13 mg/dL (7-18)
[2021-03-21 23:36] LABS: ACETAMINOPHEN 0 ug/ml (10-30); ALCOHOL, BLOOD < 3 mg/dL (0-0)
--- NOTE | 2021-03-22 01:34 | NUR ---
clinicals faxed to [facility]
--- NOTE | 2021-03-22 08:39 | NUR ---
CALLED [facility] FOR UPDATE, THEY WILL CALL US BACK PER ART.
--- NOTE | 2021-03-22 09:15 | NUR ---
PT ACCEPTED TO [facility] UNDER DR. SANTAMARIA [phone] FOR REPORT.
--- NOTE | 2021-03-22 09:26 | NUR ---
[facility] CALLED ETA 45 MINS PER MITA.
--- NOTE | 2021-03-22 10:04 | NUR ---
REPORT GIVEN TO RICHARD CONNER OF [facility]
--- NOTE | 2021-03-22 10:44 | NUR ---
Judy jacques in ED - 03/22/21 at 1415 by GRISELDA Patient eloped from [facility] KARRI ZHAO notified.
--- NOTE | 2021-03-22 14:15 | NUR ---
[facility] ETA [id number]
[2021-03-22 14:29] VITALS: BP 144/100
--- NOTE | 2021-03-22 14:29 | NUR ---
REPORT GIVEN TO EMS FOR PT TRANSFER TO [facility].
== END 2021-03-22 14:37 ==
LOC: ER 21:17
DX: R45.851 Suicidal ideations (principal); F32.A Depression, unspecified; M81.0 Age-related osteoporosis without current pathological fracture; Z20.822 Contact with and (suspected) exposure to COVID-19; Z88.8 Allergy status to other drugs, medicaments and biological substances; K21.9 Gastro-esophageal reflux disease without esophagitis; K58.9 Irritable bowel syndrome, unspecified; M06.9 Rheumatoid arthritis, unspecified; F90.9 Attention-deficit hyperactivity disorder, unspecified type; Z79.899 Other long term (current) drug therapy; Z91.14 Patient's other noncompliance with medication regimen; F15.90 Other stimulant use, unspecified, uncomplicated; Z87.11 Personal history of peptic ulcer disease
CPT/HCPCS: 36415; 80048; 80076; 80143; 80307; 80320; 81003; 85025; 87426; 99285; C9803; G0480

== ENCOUNTER 2021-04-13 15:43 | Emergency (ER) | payer OTHER ==
[~2021-04-13] VITALS: Ht 167.6 cm; Wt 74.8 kg
--- NOTE | 2021-04-13 16:15 | NUR ---
COVID 19 AG SWAB DONE AND SENT TO LAB
[2021-04-13 16:46] LABS: BASOPHILS % (AUTO) 0.3 % (0.0-2.0); EOSINOPHILS % (AUTO) 2.5 % (0.0-6.0); HEMATOCRIT 40 % (39-51); LYMPHOCYTES # (AUTO) 2.4 K/uL (0.8-4.8); LYMPHOCYTES % (AUTO) 29.1 % (20.0-44.0); MEAN CORPUSCULAR HGB CONC 33 g/dl (31.0-36.0); MEAN CORPUSCULAR VOLUME 92 fL (80-96); MONOCYTES # (AUTO) 0.8 K/uL (0.1-1.30); MONOCYTES % (AUTO) 9.5 % (2.0-12.0); NEUTROPHILS # (AUTO) 4.8 K/uL (1.8-8.9); NEUTROPHILS % (AUTO) 58.6 % (43.0-81.0); PLATELET COUNT (AUTO) 253 K/uL (150-450); RED BLOOD CELL COUNT(AUTO) 4.31 MIL/uL (4.5-6.0); WHITE BLOOD COUNT (AUTO) 8.1 K/uL (4.3-11.0)
[2021-04-13 17:31] LABS: ALANINE AMINOTRANSFERASE 38 U/L (12-78); ALBUMIN 3.4 g/dL (3.4-5.0); ALKALINE PHOSPHATASE 79 U/L (46-116); ASPARTATE AMINOTRANSFERASE 38 U/L (15-37); BILIRUBIN,DIRECT 0.1 mg/dL (0.0-0.2); BILIRUBIN,TOTAL 0.7 mg/dL (0.2-1.0); CALCIUM, SERUM 8.1 mg/dL (8.5-10.1); CARBON DIOXIDE 26 mmol/L (21-32); CHLORIDE 103 mmol/L (98-107); GLUCOSE 107 mg/dL (74-106); POTASSIUM 3.5 mmol/L (3.5-5.1); SODIUM SERUM 136 mmol/L (136-145); TOTAL PROTEIN, SERUM 6.7 g/dL (6.4-8.2); UREA NITROGEN, BLOOD 33 mg/dL (7-18)
[2021-04-13 17:33] LABS: ACETAMINOPHEN < 0 ug/ml (10-30); ALCOHOL, BLOOD < 3 mg/dL (0-0)
--- NOTE | 2021-04-13 19:05 | NUR ---
ASSUMED CARE. PT AWAKE AND ALERT, ATTACHED TO MONITOR AND POX. SITTER AT BEDSIDE. PT ENDORSES THAT HE WAS DC'D FROM [facility], BUT STILL FEELS SUICIDAL BECAUSE HE HASNT SLEPT FOR 3 DAYS. WILL CONTINUE TO MONITOR.
[2021-04-13] MEDS ORDERED: IV NS 0.9% 1,000 ML IV ONE (19:30)
[2021-04-13] MEDS ORDERED: risperiDONE 0.25 MG TABLET PO ONE ×2 (19:30→19:50)
--- NOTE | 2021-04-13 19:32 | NUR ---
CLINICALS [facility]ED TO [facility] FOR VOLUNTARY PSYCHIATRIC ADMISSION.
--- NOTE | 2021-04-13 20:15 | NUR ---
Patient is resting comfortably in bed with eyes closed. Easily aroused. VSS
--- NOTE | 2021-04-14 00:20 | NUR ---
Patient is resting comfortably in bed with eyes closed. Easily aroused. VSS
[2021-04-14] MEDS ORDERED: ACETAMINOPHEN ES 500 MG TABLET ONE (02:55)
[2021-04-14] MEDS ORDERED: ACETAMINOPHEN ES 500 MG TABLET PO ONE (03:00)
--- NOTE | 2021-04-14 03:54 | NUR ---
PT SITTING QUIETLY, ATTACHED TO MONITOR, VSS
[2021-04-14 04:14] LABS: BILIRUBIN,URINE NEGATIVE (NEGATIVE); COLOR,URINE YELLOW (YELLOW); LEUKOCYTE ESTERASE ,URINE TRACE (NEGATIVE); NITRITE, URINE NEGATIVE (NEGATIVE); PH,URINE 6.5 (5.0-8.0); PROTEIN,URINE NEGATIVE (NEGATIVE); UGLUCOSE NEGATIVE (NEGATIVE); UROBILINOGEN,URINE 0.2 EU/dL (0.2)
[2021-04-14 05:03] LABS: BACTERIA,URINE Rare /HPF (None Seen); RBC,URINE NONE SEEN /HPF (0-2); SQUAMOUS EPITHELIAL CELL,UR Rare /HPF (None Seen); WBC,URINE 0-2 /HPF (0-3)
--- NOTE | 2021-04-14 05:43 | NUR ---
PT SLEEPING, ATTACHED TO MONITOR AND POX. VSS
--- NOTE | 2021-04-14 07:01 | NUR ---
PT IS ACCEPTED AT THE [facility] UNDER THE CARE OF DR. UMANZOR. CALL [phone] EXT [phone] FOR REPORT.
--- NOTE | 2021-04-14 07:05 | NUR ---
AMBULATED TO RESTROOM, NEEDS MET
--- NOTE | 2021-04-14 08:00 | NUR ---
patient verbalized "i am not suicidal anymore", aware.
[2021-04-14 08:01] VITALS: BP 118/67
--- NOTE | 2021-04-14 08:02 | NUR ---
Patient given written and verbal discharge instructions. Patient verbalizes understanding of instructions. Patient is ambulatory with steady gait. Refuses offer of care home placement. Patient given list of available shelters in surrounding area.
== END 2021-04-14 08:02 | disposition home or self-care (01) ==
LOC: ER 15:45
DX: R45.851 Suicidal ideations (principal); D64.9 Anemia, unspecified; E86.0 Dehydration; M06.9 Rheumatoid arthritis, unspecified; R45.1 Restlessness and agitation; K21.9 Gastro-esophageal reflux disease without esophagitis; K58.9 Irritable bowel syndrome, unspecified; F90.9 Attention-deficit hyperactivity disorder, unspecified type; Z79.899 Other long term (current) drug therapy; Z88.8 Allergy status to other drugs, medicaments and biological substances; Z87.11 Personal history of peptic ulcer disease; Z20.822 Contact with and (suspected) exposure to COVID-19; Z53.29 Procedure and treatment not carried out because of patient's decision for other reasons
CPT/HCPCS: 36415; 80048; 80076; 80143; 80307; 80320; 81001; 85025; 87426; 96360; 99285; C9803; J7030; G0480

== ENCOUNTER 2021-04-14 09:52 | Emergency (ER) | payer OTHER ==
[~2021-04-14] VITALS: Ht 167.6 cm; Wt 74.8 kg
--- NOTE | 2021-04-14 11:40 | NUR ---
PT SEEN AND EXAMINED BY .
--- NOTE | 2021-04-14 11:42 | NUR ---
EKG DONE BY CHECKING DEPARTMENT SUPERVISOR.
--- NOTE | 2021-04-14 20:16 | NUR ---
PER LAB, "GIVE US A FEW MINUTES TO FINISH RUNNING THE SPECIMENS"
[2021-04-14 21:15] VITALS: BP 130/80
--- NOTE | 2021-04-14 22:00 | NUR ---
PT STATES THAT HE IS NO LONGER SUICIDIAL AND WANTS TO LEAVE. MADE AWARE
--- NOTE | 2021-04-14 22:15 | NUR ---
Patient eloped from facility. ER MD notified.
== END 2021-04-14 22:15 | disposition left against medical advice (07) ==
LOC: ER 09:52
DX: R45.851 Suicidal ideations (principal); F41.9 Anxiety disorder, unspecified; F15.10 Other stimulant abuse, uncomplicated; R07.89 Other chest pain; G43.909 Migraine, unspecified, not intractable, without status migrainosus; K21.9 Gastro-esophageal reflux disease without esophagitis; M06.9 Rheumatoid arthritis, unspecified; F17.200 Nicotine dependence, unspecified, uncomplicated; M81.0 Age-related osteoporosis without current pathological fracture; F32.9 Major depressive disorder, single episode, unspecified; F90.9 Attention-deficit hyperactivity disorder, unspecified type; Z88.8 Allergy status to other drugs, medicaments and biological substances; Z79.899 Other long term (current) drug therapy
CPT/HCPCS: 36415; 85025-TC

== ENCOUNTER 2021-05-06 21:00 | Emergency (ER) | payer OTHER ==
[~2021-05-06] VITALS: Ht 170.2 cm; Wt 90.7 kg
--- NOTE | 2021-05-06 21:04 | NUR ---
[address] C/O SI WITH PLAN TO SLIT WRIST. REQUESTING [facility] ADMISSION. -HI. PT A/OX3. TOLERATING R/A WELL WITH NO SOB.. SAFETY 1:[address]
[2021-05-06] MEDS ORDERED: LORAZEPAM 1 MG TABLET ONE (21:20)
[2021-05-06] MEDS ORDERED: LORAZEPAM 1 MG TABLET PO ONE (21:30)
[2021-05-06 21:58] LABS: BILIRUBIN,URINE NEGATIVE (NEGATIVE); COLOR,URINE YELLOW (YELLOW); LEUKOCYTE ESTERASE ,URINE NEGATIVE (NEGATIVE); NITRITE, URINE NEGATIVE (NEGATIVE); PROTEIN,URINE NEGATIVE (NEGATIVE); UGLUCOSE NEGATIVE (NEGATIVE); UROBILINOGEN,URINE 0.2 EU/dL (0.2)
[2021-05-06 22:32] LABS: BASOPHILS % (AUTO) 0.5 % (0.0-2.0); EOSINOPHILS % (AUTO) 1.3 % (0.0-6.0); HEMATOCRIT 44 % (39-51); HEMOGLOBIN 14.8 g/dL (13.5-17.5); LYMPHOCYTES # (AUTO) 3.5 K/uL (0.8-4.8); LYMPHOCYTES % (AUTO) 39.7 % (20.0-44.0); MEAN CORPUSCULAR HGB CONC 34 g/dl (31.0-36.0); MEAN CORPUSCULAR VOLUME 92 fL (80-96); MONOCYTES # (AUTO) 0.9 K/uL (0.1-1.30); MONOCYTES % (AUTO) 10.1 % (2.0-12.0); NEUTROPHILS # (AUTO) 4.3 K/uL (1.8-8.9); NEUTROPHILS % (AUTO) 48.4 % (43.0-81.0); PLATELET COUNT (AUTO) 292 K/uL (150-450); RED BLOOD CELL COUNT(AUTO) 4.79 MIL/uL (4.5-6.0); WHITE BLOOD COUNT (AUTO) 8.8 K/uL (4.3-11.0)
[2021-05-06 23:01] LABS: ALANINE AMINOTRANSFERASE 40 U/L (12-78); ALBUMIN 3.9 g/dL (3.4-5.0); ALCOHOL, BLOOD < 3 mg/dL (0-0); ALKALINE PHOSPHATASE 92 U/L (46-116); ASPARTATE AMINOTRANSFERASE 34 U/L (15-37); BILIRUBIN,DIRECT 0.1 mg/dL (0.0-0.2); BILIRUBIN,TOTAL 0.3 mg/dL (0.2-1.0); CALCIUM, SERUM 8.6 mg/dL (8.5-10.1); CARBON DIOXIDE 27 mmol/L (21-32); CHLORIDE 101 mmol/L (98-107); GLUCOSE 91 mg/dL (74-106); POTASSIUM 3.9 mmol/L (3.5-5.1); SODIUM SERUM 140 mmol/L (136-145); TOTAL PROTEIN, SERUM 7.7 g/dL (6.4-8.2); UREA NITROGEN, BLOOD 21 mg/dL (7-18)
[2021-05-06 23:09] LABS: ACETAMINOPHEN 0 ug/ml (10-30)
[2021-05-07] MEDS ORDERED: ACETAMINOPHEN W/ CODEINE#3 1 EA TABLET PO ONE (02:00)
[2021-05-07] MEDS ORDERED: predniSONE 20 MG TABLET PO ONE (02:00)
[2021-05-07] MEDS ORDERED: ALBUTEROL FS 2.5 MG/3 ML VIAL.NEB NEB ONE (02:00)
[2021-05-07] MEDS ORDERED: IPRATROPIUM NEB FS 0.5 MG/2.5 ML AMPUL.NEB NEB ONE (02:00)
[2021-05-07 03:59] LABS: CALCIUM, SERUM 8.4 mg/dL (8.5-10.1); CREATININE 0.9 mg/dL (0.6-1.3); POTASSIUM 3.9 mmol/L (3.5-5.1)
--- NOTE | 2021-05-07 05:43 | NUR ---
CLINICALS FAX TO [facility]
--- NOTE | 2021-05-07 07:44 | NUR ---
THE PATIENT IS RECEIVED IN ER BED #13. SLEEPING. RESPONSIVE TO VERBAL STIMULI. RESPIRATION REGULAR AND UNLABORED. WILL CONTINUE TO MONITOR THE PATIENT.
--- NOTE | 2021-05-07 10:12 | NUR ---
SS consult requested for homelessness, drug abuse & SI. SW met with pt. bedside. The pt. is asleep and not rousable to verbal cues. SW will follow up at a later time.
--- NOTE | 2021-05-07 10:30 | NUR ---
THE PATIENT IS ALERT AND ORIENTED X4. DENIES PAIN. IN ROOM AIR AND DENIES SOB. RESPIRATION REGULAR AND UNLABORED. WILL CONTINUE TO MONITOR THE PATIENT.
--- NOTE | 2021-05-07 11:38 | NUR ---
The patient alert and oriented x4. Denies pain. In room air and denies SOB. Respiration regular and unlabored. Denies SI/HI. Denies having any hallucinations. The patient has stable gait. Patient discharged to home in stable condition. Written and verbal after care instructions given. Patient verbalizes understanding of instruction.
[2021-05-07 11:39] VITALS: BP 131/84
== END 2021-05-07 11:41 | disposition home or self-care (01) ==
LOC: ER 21:22
DX: R45.851 Suicidal ideations (principal); K58.9 Irritable bowel syndrome, unspecified; K21.9 Gastro-esophageal reflux disease without esophagitis; M06.9 Rheumatoid arthritis, unspecified; Z79.899 Other long term (current) drug therapy; Z88.8 Allergy status to other drugs, medicaments and biological substances; F90.9 Attention-deficit hyperactivity disorder, unspecified type; Z59.01 Sheltered homelessness
CPT/HCPCS: 36415 ×2; 80048 ×2; 80076; 80143; 80307; 80320; 81003; 83605; 85025; 87426; 99285; C9803; G0480

== ENCOUNTER 2021-09-02 20:38 | Emergency (ER) | payer OTHER ==
[~2021-09-02] VITALS: Ht 170.2 cm; Wt 90.7 kg
--- NOTE | 2021-09-02 20:48 | NUR ---
BIBS FOR S/I WITH PLAN TO OD ON HEROIN SEEKING VOLUNTARY ADMISSION TO [facility]. PATIENT IN BED 18 ALL BELONGINGS TAKEN AND PLACED IN A LOCKER. PATIENT AWAITING MD ALTMAN.
[2021-09-02 21:15] LABS: BASOPHILS # (AUTO) 0.1 K/uL (0.0-0.2); BASOPHILS % (AUTO) 0.9 % (0.0-2.0); EOSINOPHILS % (AUTO) 0.7 % (0.0-6.0); HEMATOCRIT 44 % (39-51); HEMOGLOBIN 14.7 g/dL (13.5-17.5); LYMPHOCYTES # (AUTO) 2.3 K/uL (0.8-4.8); LYMPHOCYTES % (AUTO) 27.3 % (20.0-44.0); MEAN CORPUSCULAR HGB CONC 34 g/dl (31.0-36.0); MEAN CORPUSCULAR VOLUME 89 fL (80-96); MONOCYTES # (AUTO) 0.8 K/uL (0.1-1.30); MONOCYTES % (AUTO) 8.9 % (2.0-12.0); NEUTROPHILS # (AUTO) 5.3 K/uL (1.8-8.9); NEUTROPHILS % (AUTO) 62.2 % (43.0-81.0); PLATELET COUNT (AUTO) 354 K/uL (150-450); WHITE BLOOD COUNT (AUTO) 8.4 K/uL (4.3-11.0)
[2021-09-02 21:17] LABS: BILIRUBIN,URINE NEGATIVE (NEGATIVE); COLOR,URINE YELLOW (YELLOW); LEUKOCYTE ESTERASE ,URINE NEGATIVE (NEGATIVE); NITRITE, URINE NEGATIVE (NEGATIVE); PROTEIN,URINE NEGATIVE (NEGATIVE); UGLUCOSE NEGATIVE (NEGATIVE); UROBILINOGEN,URINE 0.2 EU/dL (0.2)
[2021-09-02 21:19] LABS: CALCIUM, SERUM 9.4 mg/dL (8.5-10.1); CARBON DIOXIDE 22 mmol/L (21-32); CHLORIDE 103 mmol/L (98-107); CREATININE 0.9 mg/dL (0.6-1.3); GLUCOSE 109 mg/dL (74-106); POTASSIUM 3.7 mmol/L (3.5-5.1); SODIUM SERUM 137 mmol/L (136-145); UREA NITROGEN, BLOOD 20 mg/dL (7-18)
[2021-09-02 21:25] LABS: ALANINE AMINOTRANSFERASE 25 U/L (12-78); ALBUMIN 3.9 g/dL (3.4-5.0); ALKALINE PHOSPHATASE 92 U/L (46-116); ASPARTATE AMINOTRANSFERASE 21 U/L (15-37); BILIRUBIN,DIRECT 0.1 mg/dL (0.0-0.2); BILIRUBIN,TOTAL 0.6 mg/dL (0.2-1.0)
[2021-09-02 21:26] LABS: ACETAMINOPHEN 0 ug/ml (10-30); ALCOHOL, BLOOD < 3 mg/dL (0-0)
--- NOTE | 2021-09-02 23:38 | NUR ---
clinicals faxed to [facility]un[facility] intake
--- NOTE | 2021-09-03 03:38 | NUR ---
PT ACCEPTED AT [facility] UNDER THE CARE OF DR. SANTAMARIA. CALL [phone] FOR REPORT
--- NOTE | 2021-09-03 03:44 | NUR ---
REPORT SEVERIANO TO UBALDO HOLLOWAY FOR SVITLANA AT THE [facility]
--- NOTE | 2021-09-03 03:44 | NUR ---
[facility] ACCOUNTANT BOOKKEEPER AT 0500
[2021-09-03 04:38] VITALS: BP 138/88
--- NOTE | 2021-09-03 04:38 | NUR ---
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
== END 2021-09-03 04:59 ==
LOC: ER 20:42
DX: R45.851 Suicidal ideations (principal); Z59.00 Homelessness unspecified; Z20.822 Contact with and (suspected) exposure to COVID-19; F32.A Depression, unspecified; F90.9 Attention-deficit hyperactivity disorder, unspecified type; Z79.899 Other long term (current) drug therapy; M06.9 Rheumatoid arthritis, unspecified; K58.9 Irritable bowel syndrome, unspecified; K21.9 Gastro-esophageal reflux disease without esophagitis; Z87.11 Personal history of peptic ulcer disease
CPT/HCPCS: 36415; 80048; 80076; 80143; 80307; 80320; 81003; 85025; 87426; 99285; C9803; G0480

== ENCOUNTER 2021-09-28 23:05 | Emergency (ER) | payer OTHER ==
[~2021-09-28] VITALS: Ht 167.6 cm; Wt 90.7 kg
[2021-09-28 23:24] VITALS: BP 145/84
[2021-09-28] MEDS ORDERED: NAPR-1164 PO (23:49)
[2021-09-28] MEDS ORDERED: IBUPROFEN 600 MG TABLET ONE (23:49)
[2021-09-28] MEDS ORDERED: LIDO30AD10 TP (23:49)
--- NOTE | 2021-09-28 23:58 | NUR ---
Patient discharged to home in stable condition. Written and verbal after care instructions given. Patient verbalizes understanding of instruction.
[2021-09-29] MEDS ORDERED: IBUPROFEN 600 MG TABLET PO ONE
== END 2021-09-28 23:59 | disposition home or self-care (01) ==
LOC: ER 23:06
DX: S13.4XXA Sprain of ligaments of cervical spine, initial encounter (principal); G43.909 Migraine, unspecified, not intractable, without status migrainosus; M06.9 Rheumatoid arthritis, unspecified; F32.A Depression, unspecified; F17.200 Nicotine dependence, unspecified, uncomplicated; Z87.19 Personal history of other diseases of the digestive system; Z88.8 Allergy status to other drugs, medicaments and biological substances; Z79.899 Other long term (current) drug therapy; X58.XXXA Exposure to other specified factors, initial encounter; Y93.89 Activity, other specified; Y92.89 Other specified places as the place of occurrence of the external cause; Y99.8 Other external cause status

== ENCOUNTER 2021-09-29 04:17 | Emergency (ER) | payer OTHER ==
[~2021-09-29] VITALS: Ht 167.6 cm; Wt 90.7 kg
[~2021-09-29 04:17] MED LIST changes: +LIDO30AD10 TP; +NAPR-1164 PO
--- NOTE | 2021-09-29 04:58 | NUR ---
BIB TO ER BED 19. AAOX4. NOT IN RESP DISTRESS. AMBULATORY. BROUGHT IN FOR BILAT LEG PAIN. UPON MD EVALUATION. PT VERBALIZED TO MD THAT HE IS SUICIDAL AND WANTS VOLUNTARY ADMISSION. PT PLANS TO OD ON HEROIN. PT IS GOWN, BELONGINGS TAKEN TO LOCKER, VISUALLY INSPECTED AND SITTER WITHIN SIGHT. URINE COLLECTED.
--- NOTE | 2021-09-29 05:08 | NUR ---
COVID SWAB SENT TO LAB
[2021-09-29 05:30] LABS: BASOPHILS % (AUTO) 0.3 % (0.0-2.0); EOSINOPHILS % (AUTO) 1.3 % (0.0-6.0); HEMATOCRIT 41 % (39-51); LYMPHOCYTES # (AUTO) 1.9 K/uL (0.8-4.8); LYMPHOCYTES % (AUTO) 15.9 % (20.0-44.0); MEAN CORPUSCULAR HGB CONC 34 g/dl (31.0-36.0); MEAN CORPUSCULAR VOLUME 89 fL (80-96); MONOCYTES % (AUTO) 8.9 % (2.0-12.0); NEUTROPHILS # (AUTO) 8.6 K/uL (1.8-8.9); NEUTROPHILS % (AUTO) 73.6 % (43.0-81.0); PLATELET COUNT (AUTO) 304 K/uL (150-450); RED BLOOD CELL COUNT(AUTO) 4.62 MIL/uL (4.5-6.0); WHITE BLOOD COUNT (AUTO) 11.7 K/uL (4.3-11.0)
--- NOTE | 2021-09-29 05:30 | NUR ---
URINE SPECIMEN COLLECTED AND SENT TO LAB.
[2021-09-29 05:41] LABS: ALANINE AMINOTRANSFERASE 34 U/L (12-78); ALBUMIN 3.7 g/dL (3.4-5.0); ALCOHOL, BLOOD < 3 mg/dL (0-0); ALKALINE PHOSPHATASE 97 U/L (46-116); ASPARTATE AMINOTRANSFERASE 28 U/L (15-37); BILIRUBIN,DIRECT 0.1 mg/dL (0.0-0.2); BILIRUBIN,TOTAL 0.8 mg/dL (0.2-1.0); CALCIUM, SERUM 8.8 mg/dL (8.5-10.1); CARBON DIOXIDE 28 mmol/L (21-32); CHLORIDE 100 mmol/L (98-107); CREATININE 0.8 mg/dL (0.6-1.3); GLUCOSE 110 mg/dL (74-106); POTASSIUM 3.8 mmol/L (3.5-5.1); SODIUM SERUM 137 mmol/L (136-145); TOTAL PROTEIN, SERUM 7.4 g/dL (6.4-8.2); UREA NITROGEN, BLOOD 19 mg/dL (7-18)
[2021-09-29 06:13] LABS: ACETAMINOPHEN < 10 ug/ml (10-30)
--- NOTE | 2021-09-29 07:43 | NUR ---
BREAKFAST TRAY PROVIDED.
--- NOTE | 2021-09-29 08:58 | NUR ---
BAM faxed clinicals to [facility] [[address] [place] [address] [phone] ] for voluntary psychiatric treatment.
--- NOTE | 2021-09-29 10:42 | NUR ---
SS consult: SS Consult requested for Stroke. The pt. is a 53 -year-old male patient who presents to the ED with complaints of SI with plan to OD on Heroin per EMR. Upon SS consult, the pt. is Alert & Oriented x 4 and makes good eye contact. The pt. appears disheveled with elevated mood & affect. Pt.'s speech thought process are WNL. The pt. remained calm & cooperative throughout interview. Pt. denies HI and denies hallucinations. SW explored pt.'s living situation. Per pt. he is currently experiencing homelessness. SW explored pt.'s mental health Hx. Patient states he has been diagnosed with ADHD & Depression. SW explored pt.'s drug & ETOH use. Pt. states he uses amphetamines "sometimes". Pt. refused to complete the rest of the interview stating he was feeling sick and went to restroom. Plan: Pt. was referred pt. to [facility] [[address] [place] [address] FAX: ] for inpatient psychiatric treatment. Pt. was provided with mental health, addiction & homeless resources and pt. refused them. Pt. refused to sign homeless waiver and it was placed in the chart. Year-round shelters: [facility] [address] [place], [place] [phone] ; [place] [facility] [address] [place] [address]; [place] [facility] Iimfszs5811 [facility]. [facility] [address] Hygiene: [place] [facility]: [address] [place] ; [facility] [facility] [address] [facility] ; [facility] [address] [place] . Food Resources: [place] [employer] [facility] at [facility]- [address] [place]; Meet Each Need with Dignity ([facility]) [address] [place]; [facility] Food Pantry 6529 [facility] A[place]; [facility] 8611 Nardinstella Ayon. Mental Health resources provided: [facility] [address] [place], [place] [address] ; [facility] Health [place], Inc. [address] [facility] [address], [place], [place] [id number] ; [facility] [address] [place], [place] [phone] ; [facility] [address] [place], [place] [id number] Healthcare Clinics: [facility] [address] [facility], [address] [place]. [place] ; [facility] [address] [facility] [address] [place] [address]; [facility] [address] [place] [address] [phone] Counseling--Outpatient [facility] [address] [facility], [place] [address] (Specializes in in-depth psychotherapy for emotional distress: anxiety, depression, interpersonal conflicts, life transitions, childhood abuse) [facility] Guidance Center [address] [place] [address] (Assist with solving problem marital difficulties, separation & divorce, aging parents, & grief, chronic & terminal illness) [facility] [address] [place] [address] (Deal with loss & grief, anxiety, marital difficulties) Homebound/Mental Health Services [address] [facility], [address] [place], [place] [phone] (Provide in-home mental services to people who are incapable of leaving their homes) Organization for Needs of the Elderly Senior Service/Resource Center [address] [facility] [place] [address] [facility] 6514 [facility]. [place], [place] [address] PSYCHIATRIC OUTPATIENT SERVICES [facility] Partial Hospitalization and Intensive Outpatient Program (Managed Care and [place] Only)[address] [facility] [phone] [facility] Partial Hospitalization and Outpatient [address] [place], [place] [phone] BREEZY RODRIGUEZ [facility] Rev[address] [place], [place] [phone] [facility] Breezy Rodriguez Partial Hospitalization and Outpatient Shxglrl62889 Emelir[facility]un [facility] Breezy Rodriguez, [phone] Substance Abuse resources provided included: [facility] Substance Abuse Self-Helpline ([facility]) ; CRI -HELP [address] [facility]. [place] [address] ; [facility] [address] [facility] [address] ; [facility] Rehabilitation Program [address]API Healthcare [address] ; [facility] [address] [facility] [id number] ; [facility] 4940 [facility] [address] ; [facility] 909 [facility] [phone] ; [facility] Substance Abuse Helpline([facility])-[facility] ; [facility] ; [facility] [place]; [facility] [place]; I-ADARP Inter Agency Drug Abuse Recovery Breezy Negretearnulfo; [facility]; Barrett [place]; [facility] Robert Almanzar; Alcoholics Anonymous -SFV; [place] ; Marijuana Anonymous -SFV; Narcotics Anonymous [email or web address];
[2021-09-29] MEDS ORDERED: LORAZEPAM 1 MG TABLET ONE (11:10)
[2021-09-29] MEDS ORDERED: LORAZEPAM 1 MG TABLET PO ONE (11:30)
[2021-09-29] MEDS ORDERED: IBUPROFEN 600 MG TABLET ONE (11:31)
[2021-09-29] MEDS ORDERED: IBUPROFEN 600 MG TABLET PO ONE (12:00)
--- NOTE | 2021-09-29 14:18 | NUR ---
SW called [facility] TEL:[phone] who stated that thsi pt. has been accepted under Dr. Ramirez. Nurse to nurse report to be called in to charge nurse at [phone]
--- NOTE | 2021-09-29 19:59 | NUR ---
PT RESTING COMFORTABLY IN BED, V/S WITHIN LIMITS. WILL CONTINUE TO MONITOR.
--- NOTE | 2021-09-29 20:38 | NUR ---
REPORT GIVEN TO AMIERN PENCILLER AT THE [facility]. AWAITING FOR TRANSPORT ETA FROM [facility].
--- NOTE | 2021-09-29 21:15 | NUR ---
Morgan from [facility] for transport. Pt is in stable condition. ambulatory on steady gait. All of his belongings was given to the lease purchase driver.
[2021-09-29 23:40] VITALS: BP 140/80
== END 2021-09-29 23:40 ==
LOC: ER 04:19
DX: R45.851 Suicidal ideations (principal); F19.10 Other psychoactive substance abuse, uncomplicated; Z59.00 Homelessness unspecified; F32.A Depression, unspecified; Z20.822 Contact with and (suspected) exposure to COVID-19; M06.9 Rheumatoid arthritis, unspecified; K58.9 Irritable bowel syndrome, unspecified; K21.9 Gastro-esophageal reflux disease without esophagitis; Z79.899 Other long term (current) drug therapy; F17.200 Nicotine dependence, unspecified, uncomplicated; Z88.8 Allergy status to other drugs, medicaments and biological substances; Z86.69 Personal history of other diseases of the nervous system and sense organs; F90.9 Attention-deficit hyperactivity disorder, unspecified type
CPT/HCPCS: 36415; 80048; 80076; 80143; 80307; 80320; 85025; 87426; 99285; C9803; G0480

== ENCOUNTER 2021-10-02 19:27 | Emergency (ER) | payer OTHER ==
[~2021-10-02] VITALS: Ht 170.2 cm; Wt 79.4 kg
--- NOTE | 2021-10-02 21:01 | NUR ---
BIBS TO ER BED 18. AAOX4. NOT IN RESP DISTRESS. AMBUALTORY. CAME IN FOR MEDICAL CLEARANCE FOR A VOLUNTARY ADMISSION TO PSYCH. PT HAS BEEN HAVING SUICIDAL THOUGHTS WITH PLAN TO OD. DENIES ANY HI. PT IS GOWN AND BELONGINGS PLACED IN LOCKER. URINE COLLECETED WELL COVID SWAB AND SENT TO LAB. WAS AT THE BEDSIDE FOR EVAL. SITTER WITHIN SIGHT.
[2021-10-02 21:19] LABS: CALCIUM, SERUM 9.2 mg/dL (8.5-10.1); CARBON DIOXIDE 27 mmol/L (21-32); CHLORIDE 103 mmol/L (98-107); CREATININE 0.8 mg/dL (0.6-1.3); GLUCOSE 100 mg/dL (74-106); POTASSIUM 3.5 mmol/L (3.5-5.1); SODIUM SERUM 137 mmol/L (136-145); UREA NITROGEN, BLOOD 12 mg/dL (7-18)
[2021-10-02 21:26] LABS: ALANINE AMINOTRANSFERASE 23 U/L (12-78); ALBUMIN 3.5 g/dL (3.4-5.0); ALCOHOL, BLOOD < 3 mg/dL (0-0); ALKALINE PHOSPHATASE 86 U/L (46-116); ASPARTATE AMINOTRANSFERASE 13 U/L (15-37); BILIRUBIN,DIRECT 0.1 mg/dL (0.0-0.2); BILIRUBIN,TOTAL 0.1 mg/dL (0.2-1.0); TOTAL PROTEIN, SERUM 7.2 g/dL (6.4-8.2)
[2021-10-02 21:27] LABS: ACETAMINOPHEN < 0 ug/ml (10-30)
[2021-10-02 21:29] LABS: BASOPHILS % (AUTO) 0.3 % (0.0-2.0); EOSINOPHILS % (AUTO) 0.9 % (0.0-6.0); HEMATOCRIT 41 % (39-51); HEMOGLOBIN 13.9 g/dL (13.5-17.5); LYMPHOCYTES # (AUTO) 2.9 K/uL (0.8-4.8); LYMPHOCYTES % (AUTO) 25.8 % (20.0-44.0); MEAN CORPUSCULAR HGB CONC 34 g/dl (31.0-36.0); MEAN CORPUSCULAR VOLUME 89 fL (80-96); MONOCYTES # (AUTO) 0.7 K/uL (0.1-1.30); NEUTROPHILS # (AUTO) 7.7 K/uL (1.8-8.9); RED BLOOD CELL COUNT(AUTO) 4.57 MIL/uL (4.5-6.0); WHITE BLOOD COUNT (AUTO) 11.4 K/uL (4.3-11.0)
[2021-10-02 21:39] LABS: PLATELET COUNT (AUTO) 348 K/uL (150-450)
[2021-10-02] MEDS ORDERED: TRAZODONE 50 MG TABLET ONE (22:00)
[2021-10-02] MEDS ORDERED: TRAZODONE 50 MG TABLET PO ONE (22:00)
[2021-10-02 22:22] LABS: BILIRUBIN,URINE NEGATIVE (NEGATIVE); COLOR,URINE YELLOW (YELLOW); LEUKOCYTE ESTERASE ,URINE NEGATIVE (NEGATIVE); NITRITE, URINE NEGATIVE (NEGATIVE); PROTEIN,URINE NEGATIVE (NEGATIVE); UGLUCOSE NEGATIVE (NEGATIVE); UROBILINOGEN,URINE 0.2 EU/dL (0.2)
--- NOTE | 2021-10-02 23:50 | NUR ---
CLINICALS FAXED TO [facility]
[2021-10-03] MEDS ORDERED: LORAZEPAM 1 MG TABLET ONE (02:20)
[2021-10-03] MEDS ORDERED: LORAZEPAM 1 MG TABLET PO ONE (02:30)
--- NOTE | 2021-10-03 06:14 | NUR ---
PT SLEEPING WELL THROUGHOUT THE NIGHT. ALL NEEDS MET AT THIS TIME. PT IN NO ACUTE DISTRESS. SAFETY MEASURES CONTINUED
--- NOTE | 2021-10-03 07:48 | NUR ---
BREAKFAST TRAY PROVIDED.
--- NOTE | 2021-10-03 11:27 | NUR ---
CALLED [facility] INTAKE, STATES [facility]
--- NOTE | 2021-10-03 11:49 | NUR ---
LUNCH TRAY SERVED
--- NOTE | 2021-10-03 13:36 | NUR ---
PT STATED HE CANNOT WAIT ANYMORE AND NOT SUICIDAL ANYMORE WANTS TO BE DISCHARGED. ER MD AWARE.
[2021-10-03 13:37] VITALS: BP 135/80
== END 2021-10-03 13:38 | disposition home or self-care (01) ==
LOC: ER 19:41
DX: F32.A Depression, unspecified (principal); R45.851 Suicidal ideations; M06.9 Rheumatoid arthritis, unspecified; K58.9 Irritable bowel syndrome, unspecified; K21.9 Gastro-esophageal reflux disease without esophagitis; F90.9 Attention-deficit hyperactivity disorder, unspecified type; Z79.899 Other long term (current) drug therapy; Z88.8 Allergy status to other drugs, medicaments and biological substances; Z20.822 Contact with and (suspected) exposure to COVID-19; Z53.29 Procedure and treatment not carried out because of patient's decision for other reasons
CPT/HCPCS: 36415; 80048; 80076; 80143; 80307; 80320; 81003; 85025; 87426; 99285; C9803; G0480

== ENCOUNTER 2021-10-07 15:16 | Emergency (ER) | payer OTHER ==
[~2021-10-07] VITALS: Ht 170.2 cm; Wt 79.4 kg
[2021-10-07 15:16] VITALS: BP 139/89
[2021-10-07 16:25] LABS: BASOPHILS # (AUTO) 0.1 K/uL (0.0-0.2); EOSINOPHILS % (AUTO) 1.7 % (0.0-6.0); HEMATOCRIT 45 % (39-51); HEMOGLOBIN 15.1 g/dL (13.5-17.5); LYMPHOCYTES # (AUTO) 2.7 K/uL (0.8-4.8); LYMPHOCYTES % (AUTO) 23.7 % (20.0-44.0); MEAN CORPUSCULAR HGB CONC 34 g/dl (31.0-36.0); MEAN CORPUSCULAR VOLUME 89 fL (80-96); MONOCYTES # (AUTO) 0.9 K/uL (0.1-1.30); NEUTROPHILS # (AUTO) 7.5 K/uL (1.8-8.9); NEUTROPHILS % (AUTO) 65.6 % (43.0-81.0); PLATELET COUNT (AUTO) 385 K/uL (150-450); RED BLOOD CELL COUNT(AUTO) 5.01 MIL/uL (4.5-6.0); WHITE BLOOD COUNT (AUTO) 11.4 K/uL (4.3-11.0)
[2021-10-07 16:36] LABS: CALCIUM, SERUM 8.8 mg/dL (8.5-10.1); CARBON DIOXIDE 23 mmol/L (21-32); CHLORIDE 102 mmol/L (98-107); CREATININE 0.8 mg/dL (0.6-1.3); GLUCOSE 103 mg/dL (74-106); POTASSIUM 4.4 mmol/L (3.5-5.1); SODIUM SERUM 137 mmol/L (136-145); UREA NITROGEN, BLOOD 17 mg/dL (7-18)
[2021-10-07 16:41] LABS: ALANINE AMINOTRANSFERASE 29 U/L (12-78); ALBUMIN 3.6 g/dL (3.4-5.0); ALKALINE PHOSPHATASE 92 U/L (46-116); ASPARTATE AMINOTRANSFERASE 22 U/L (15-37); BILIRUBIN,TOTAL 0.2 mg/dL (0.2-1.0); TOTAL PROTEIN, SERUM 7.6 g/dL (6.4-8.2)
[2021-10-07 16:42] LABS: ALCOHOL, BLOOD < 3 mg/dL (0-0)
[2021-10-07 18:39] LABS: BILIRUBIN,URINE NEGATIVE (NEGATIVE); COLOR,URINE YELLOW (YELLOW); LEUKOCYTE ESTERASE ,URINE NEGATIVE (NEGATIVE); NITRITE, URINE POSITIVE (NEGATIVE); PH,URINE 5.5 (5.0-8.0); PROTEIN,URINE NEGATIVE (NEGATIVE); UGLUCOSE NEGATIVE (NEGATIVE); UROBILINOGEN,URINE 0.2 EU/dL (0.2)
[2021-10-07 18:51] LABS: BACTERIA,URINE Rare /HPF (None Seen); RBC,URINE 0-2 /HPF (0-2); SQUAMOUS EPITHELIAL CELL,UR 0-2 /HPF (None Seen); WBC,URINE 0-2 /HPF (0-3)
--- NOTE | 2021-10-07 19:28 | NUR ---
FEELING SUICIDAL BY OD ON HEROINE,REQUESTING VOLUNTARY ADMISSION TO [facility] [place]. PT AWAKE AND ALERT X4 BREATHING EVEN AND UNLABORED. CHANGED INTO GOWN AND SUICIDE PRECAUTIONS IN PLACE.
--- NOTE | 2021-10-07 19:30 | NUR ---
covid swab colleceted sent to lab
[2021-10-07] MEDS ORDERED: LORAZEPAM 1 MG TABLET PO ONE (21:30)
--- NOTE | 2021-10-07 21:56 | NUR ---
facesheet and clinicals faxed to denise parmar.
--- NOTE | 2021-10-08 01:31 | NUR ---
PT DENIES SI/HI, NO LONGER WISHES TO STAY IN ER. PT ELOPED FROM ER. DR PRIETO NOTIFIED.
== END 2021-10-08 02:00 | disposition left against medical advice (07) ==
LOC: ER 15:25
DX: R45.851 Suicidal ideations (principal); F19.10 Other psychoactive substance abuse, uncomplicated; Z20.822 Contact with and (suspected) exposure to COVID-19; K21.9 Gastro-esophageal reflux disease without esophagitis; K58.9 Irritable bowel syndrome, unspecified; M06.9 Rheumatoid arthritis, unspecified; Z91.14 Patient's other noncompliance with medication regimen; F90.9 Attention-deficit hyperactivity disorder, unspecified type; F32.A Depression, unspecified; F41.9 Anxiety disorder, unspecified
CPT/HCPCS: 36415; 80048; 80076; 80143; 80307; 80320; 81001; 85025; 87086; 87426; 99285; C9803; G0480

== ENCOUNTER 2021-10-13 14:32 | Emergency (ER) | payer OTHER ==
[~2021-10-13] VITALS: Ht 170.2 cm; Wt 79.8 kg
--- NOTE | 2021-10-13 17:09 | NUR ---
covid antogen swab done and sent to the lab
--- NOTE | 2021-10-13 17:09 | NUR ---
urine collected and sent to the lab
[2021-10-13 17:36] LABS: BILIRUBIN,URINE NEGATIVE (NEGATIVE); COLOR,URINE YELLOW (YELLOW); LEUKOCYTE ESTERASE ,URINE NEGATIVE (NEGATIVE); NITRITE, URINE NEGATIVE (NEGATIVE); PH,URINE 6.5 (5.0-8.0); PROTEIN,URINE NEGATIVE (NEGATIVE); UGLUCOSE NEGATIVE (NEGATIVE); UROBILINOGEN,URINE 0.2 EU/dL (0.2)
[2021-10-13 17:37] LABS: BASOPHILS % (AUTO) 0.4 % (0.0-2.0); EOSINOPHILS % (AUTO) 0.4 % (0.0-6.0); HEMATOCRIT 45 % (39-51); HEMOGLOBIN 14.9 g/dL (13.5-17.5); LYMPHOCYTES # (AUTO) 2.5 K/uL (0.8-4.8); LYMPHOCYTES % (AUTO) 19.1 % (20.0-44.0); MEAN CORPUSCULAR HGB CONC 33 g/dl (31.0-36.0); MEAN CORPUSCULAR VOLUME 90 fL (80-96); MONOCYTES # (AUTO) 0.7 K/uL (0.1-1.30); MONOCYTES % (AUTO) 5.5 % (2.0-12.0); NEUTROPHILS # (AUTO) 9.6 K/uL (1.8-8.9); NEUTROPHILS % (AUTO) 74.6 % (43.0-81.0); PLATELET COUNT (AUTO) 271 K/uL (150-450); RED BLOOD CELL COUNT(AUTO) 4.98 MIL/uL (4.5-6.0); WHITE BLOOD COUNT (AUTO) 12.8 K/uL (4.3-11.0)
[2021-10-13 17:54] LABS: ALANINE AMINOTRANSFERASE 16 U/L (12-78); ALBUMIN 3.4 g/dL (3.4-5.0); ALKALINE PHOSPHATASE 86 U/L (46-116); ASPARTATE AMINOTRANSFERASE 8 U/L (15-37); BILIRUBIN,DIRECT 0.1 mg/dL (0.0-0.2); BILIRUBIN,TOTAL 0.3 mg/dL (0.2-1.0); CALCIUM, SERUM 8.9 mg/dL (8.5-10.1); CARBON DIOXIDE 30 mmol/L (21-32); CHLORIDE 105 mmol/L (98-107); CREATININE 0.9 mg/dL (0.6-1.3); GLUCOSE 89 mg/dL (74-106); SODIUM SERUM 141 mmol/L (136-145); TOTAL PROTEIN, SERUM 7.2 g/dL (6.4-8.2); UREA NITROGEN, BLOOD 12 mg/dL (7-18)
[2021-10-13 17:56] LABS: BACTERIA,URINE Rare /HPF (None Seen); RBC,URINE NONE SEEN /HPF (0-2); SQUAMOUS EPITHELIAL CELL,UR Rare /HPF (None Seen); WBC,URINE 0-2 /HPF (0-3)
[2021-10-13 17:57] LABS: ACETAMINOPHEN < 0 ug/ml (10-30); ALCOHOL, BLOOD < 3 mg/dL (0-0)
--- NOTE | 2021-10-13 20:46 | NUR ---
faxed face sheet and clinicals to denise
--- NOTE | 2021-10-14 01:40 | NUR ---
PATIENT A, OX4. AMBULATORY WITH STEADY GAITS. DENIED SI/HI NAD STATED HS WANTS TO LEAVE. MADE AWARE.
[2021-10-14 01:41] VITALS: BP 129/78
== END 2021-10-14 01:42 | disposition home or self-care (01) ==
LOC: ER 14:37
DX: R45.851 Suicidal ideations (principal); K58.9 Irritable bowel syndrome, unspecified; K21.9 Gastro-esophageal reflux disease without esophagitis; Z87.11 Personal history of peptic ulcer disease; M06.9 Rheumatoid arthritis, unspecified; F90.9 Attention-deficit hyperactivity disorder, unspecified type; Z88.8 Allergy status to other drugs, medicaments and biological substances; Z79.899 Other long term (current) drug therapy; Z20.822 Contact with and (suspected) exposure to COVID-19; R03.0 Elevated blood-pressure reading, without diagnosis of hypertension
CPT/HCPCS: 36415; 80048; 80076; 80143; 80307; 80320; 81001; 85025; 87426; 99285; C9803; G0480

== ENCOUNTER 2021-10-17 16:51 | Emergency (ER) | payer OTHER ==
[~2021-10-17] VITALS: Ht 170.2 cm; Wt 88.5 kg
--- NOTE | 2021-10-17 16:51 | NUR ---
PT BIB SELF C/O SI "I WANT TO OD ON FENTANYL" REQUESTING VOLUNTARY PSYCH ADMISSION TO [facility]. PT IS AAOX4, NOT IN RESPIRATORY DISTRESS, V/S STABLE, KEPT RESTED AND COMFORTABLE. WILL CONTINUE TO MONITOR.
--- NOTE | 2021-10-17 16:56 | NUR ---
SECURITY AT BEDSIDE FOR WANDING.
--- NOTE | 2021-10-17 17:00 | NUR ---
PT CHANGED TO GOWN AND BELONGINGS PLACED IN THE PT LOCKER.
--- NOTE | 2021-10-17 17:04 | NUR ---
URINE AND COVID SPECIMEN OBTAINED SENT TO LAB.
[2021-10-17 17:45] LABS: BILIRUBIN,URINE NEGATIVE (NEGATIVE); COLOR,URINE YELLOW (YELLOW); LEUKOCYTE ESTERASE ,URINE NEGATIVE (NEGATIVE); NITRITE, URINE NEGATIVE (NEGATIVE); PROTEIN,URINE NEGATIVE (NEGATIVE); UGLUCOSE NEGATIVE (NEGATIVE); UROBILINOGEN,URINE 0.2 EU/dL (0.2)
[2021-10-17 18:16] LABS: BASOPHILS # (AUTO) 0.1 K/uL (0.0-0.2); BASOPHILS % (AUTO) 0.9 % (0.0-2.0); EOSINOPHILS % (AUTO) 1.5 % (0.0-6.0); HEMATOCRIT 41 % (39-51); HEMOGLOBIN 13.8 g/dL (13.5-17.5); LYMPHOCYTES # (AUTO) 2.3 K/uL (0.8-4.8); LYMPHOCYTES % (AUTO) 24.7 % (20.0-44.0); MEAN CORPUSCULAR HGB CONC 34 g/dl (31.0-36.0); MEAN CORPUSCULAR VOLUME 90 fL (80-96); MONOCYTES # (AUTO) 0.6 K/uL (0.1-1.30); MONOCYTES % (AUTO) 6.1 % (2.0-12.0); NEUTROPHILS # (AUTO) 6.2 K/uL (1.8-8.9); NEUTROPHILS % (AUTO) 66.8 % (43.0-81.0); PLATELET COUNT (AUTO) 259 K/uL (150-450); RED BLOOD CELL COUNT(AUTO) 4.54 MIL/uL (4.5-6.0); WHITE BLOOD COUNT (AUTO) 9.2 K/uL (4.3-11.0)
[2021-10-17 18:39] LABS: ALANINE AMINOTRANSFERASE 21 U/L (12-78); ALBUMIN 3.3 g/dL (3.4-5.0); ALCOHOL, BLOOD 25 mg/dL (0-0); ALKALINE PHOSPHATASE 90 U/L (46-116); ASPARTATE AMINOTRANSFERASE 14 U/L (15-37); BILIRUBIN,TOTAL 0.1 mg/dL (0.2-1.0); CALCIUM, SERUM 8.5 mg/dL (8.5-10.1); CARBON DIOXIDE 23 mmol/L (21-32); CHLORIDE 103 mmol/L (98-107); GLUCOSE 144 mg/dL (74-106); POTASSIUM 3.8 mmol/L (3.5-5.1); SODIUM SERUM 137 mmol/L (136-145); TOTAL PROTEIN, SERUM 7.1 g/dL (6.4-8.2); UREA NITROGEN, BLOOD 11 mg/dL (7-18)
[2021-10-17] MEDS ORDERED: LORAZEPAM 1 MG TABLET PO ONE (19:00)
[2021-10-17] MEDS ORDERED: SULFAMETH/TRIMETH 800/160 MG 1 UDTAB TABLET PO ONE (19:00)
[2021-10-17] MEDS ORDERED: CEPHALEXIN MONOHYDRATE 500 MG CAPSULE PO ONE ×2 (19:00→19:01)
[2021-10-17] MEDS ORDERED: LORAZEPAM 0.5 MG TABLET ONE ×2 (19:01→20:55)
[2021-10-17] MEDS ORDERED: SULFAMETH/TRIMETH 800/160 MG 1 UDTAB TABLET ONE (19:02)
[2021-10-17 19:05] LABS: BILIRUBIN,DIRECT < 0.1 mg/dL (0.0-0.2)
[2021-10-17 19:06] LABS: ACETAMINOPHEN 0 ug/ml (10-30)
--- NOTE | 2021-10-17 19:51 | NUR ---
PIPE LINE REPAIRER AT PT'S BEDSIDE
[2021-10-17] MEDS ORDERED: LORAZEPAM 0.5 MG TABLET PO ONE (21:00)
--- NOTE | 2021-10-18 00:28 | NUR ---
CLINICALS SENT TO INTAKE
--- NOTE | 2021-10-18 02:40 | NUR ---
PATIENT ACCEPTED [facility] UNDER DR RESENDIZ, NUMBER FOR REPORT [phone]
--- NOTE | 2021-10-18 02:42 | NUR ---
[facility] ambulance eta in 30-40min
--- NOTE | 2021-10-18 03:06 | NUR ---
[facility] 280 AT BEDSIDE FOR PT TRANSPORT TO [facility]. REPROT GIVEN. PT IS IN STABLE CONDITION FOR TRANSPORT.
[2021-10-18 03:12] VITALS: BP 115/82
== END 2021-10-18 03:12 ==
LOC: ER 16:55
DX: F41.9 Anxiety disorder, unspecified (principal); R45.851 Suicidal ideations; F32.A Depression, unspecified; L02.415 Cutaneous abscess of right lower limb; M06.9 Rheumatoid arthritis, unspecified; F90.9 Attention-deficit hyperactivity disorder, unspecified type; K58.9 Irritable bowel syndrome, unspecified; K21.9 Gastro-esophageal reflux disease without esophagitis; F17.200 Nicotine dependence, unspecified, uncomplicated; Z20.822 Contact with and (suspected) exposure to COVID-19
CPT/HCPCS: 36415; 71045; 80048; 80076; 80143; 80307; 80320; 81003; 84484; 85025; 87426; 93005; 99285; C9803; G0480

== ENCOUNTER 2021-11-02 13:05 | Emergency (ER) | payer OTHER ==
[~2021-11-02] VITALS: Ht 170.2 cm; Wt 86.2 kg
--- NOTE | 2021-11-02 13:42 | NUR ---
TO ER BED 15. BIBS C/O SEVERE ANXIETY, "NO COMMENT ON SI/HI" PT WAS RECENTLY DISCHARGE FROM [facility]. SECURITY AT BEDSIDE FOR WANDING. PT BELONGINGS TAKEN AND SECURED.
[2021-11-02] MEDS ORDERED: LORAZEPAM 1 MG TABLET ONE (13:51)
--- NOTE | 2021-11-02 13:55 | NUR ---
COVID TEST COLLECTED AND SENT
[2021-11-02] MEDS ORDERED: LORAZEPAM 1 MG TABLET PO ONE (14:00)
--- NOTE | 2021-11-02 14:05 | NUR ---
CALLED [facility] AND WAS NOTIFIED THAT THE PT IS ABLE TO BE ACCEPTED TO THEIR FACILITY AFTER CLINICAL PACKET HAS BEEN SENT
[2021-11-02 14:36] LABS: BASOPHILS # (AUTO) 0.1 K/uL (0.0-0.2); BASOPHILS % (AUTO) 0.9 % (0.0-2.0); EOSINOPHILS % (AUTO) 0.4 % (0.0-6.0); HEMATOCRIT 43 % (39-51); HEMOGLOBIN 14.7 g/dL (13.5-17.5); LYMPHOCYTES # (AUTO) 1.7 K/uL (0.8-4.8); LYMPHOCYTES % (AUTO) 20.2 % (20.0-44.0); MEAN CORPUSCULAR HGB CONC 34 g/dl (31.0-36.0); MEAN CORPUSCULAR VOLUME 88 fL (80-96); MONOCYTES # (AUTO) 0.7 K/uL (0.1-1.30); MONOCYTES % (AUTO) 7.7 % (2.0-12.0); NEUTROPHILS # (AUTO) 6.1 K/uL (1.8-8.9); NEUTROPHILS % (AUTO) 70.8 % (43.0-81.0); PLATELET COUNT (AUTO) 379 K/uL (150-450); RED BLOOD CELL COUNT(AUTO) 4.86 MIL/uL (4.5-6.0); WHITE BLOOD COUNT (AUTO) 8.6 K/uL (4.3-11.0)
--- NOTE | 2021-11-02 14:57 | NUR ---
URINE COLLECTED AND SENT
[2021-11-02 15:05] LABS: ALANINE AMINOTRANSFERASE 31 U/L (12-78); ALBUMIN 4.2 g/dL (3.4-5.0); ALKALINE PHOSPHATASE 92 U/L (46-116); ASPARTATE AMINOTRANSFERASE 21 U/L (15-37); BILIRUBIN,DIRECT 0.1 mg/dL (0.0-0.2); BILIRUBIN,TOTAL 0.5 mg/dL (0.2-1.0); CALCIUM, SERUM 9.4 mg/dL (8.5-10.1); CARBON DIOXIDE 24 mmol/L (21-32); CHLORIDE 98 mmol/L (98-107); GLUCOSE 115 mg/dL (74-106); POTASSIUM 3.9 mmol/L (3.5-5.1); SODIUM SERUM 134 mmol/L (136-145); TOTAL PROTEIN, SERUM 8.3 g/dL (6.4-8.2); UREA NITROGEN, BLOOD 13 mg/dL (7-18)
[2021-11-02 15:06] LABS: ACETAMINOPHEN < 10 ug/ml (10-30); ALCOHOL, BLOOD < 3 mg/dL (0-0)
--- NOTE | 2021-11-02 16:02 | NUR ---
SS Note: Pt. Is a 61-year-old male who demonstrates adequate insight to the reason for hospitalization. Per EMR, he presents to the ER for severe anxiety. Pt. was oriented x3, alert, and cooperative. During interview, pt. was capable of following directions and appeared unkempt. Pt.'s speech was at a normal rate and pt.'s mood was elevated. Pt. denies suicidal ideation and homicidal ideation. Pt. denies auditory hallucinations, visual hallucinations, paranoia, or delusions. Pt. stated that he does methamphetamine daily. Per pt., it helps with his anxiety. SW explored pt.'s living situation. Per pt., he has been homeless for 3-4 months. Prior to being homeless, pt. was staying in an RV with a friend, but can longer stay there due to his behavior. Pt. has never been to shelters but is not interested. Pt. has been to therapy in the past but did not find it helpful. Pt. has a psychiatrist, but he retired. BAM provided pt. with psychiatrist and counseling outpatient resources. Plan: BAM provided available resources and pt. accepted. Pt. stated that he wants voluntary admission to [facility]. Clinicals will be faxed once pt. is medically cleared.
[2021-11-02 16:33] LABS: BILIRUBIN,URINE NEGATIVE (NEGATIVE); COLOR,URINE YELLOW (YELLOW); LEUKOCYTE ESTERASE ,URINE NEGATIVE (NEGATIVE); NITRITE, URINE NEGATIVE (NEGATIVE); PROTEIN,URINE NEGATIVE (NEGATIVE); UGLUCOSE NEGATIVE (NEGATIVE); UROBILINOGEN,URINE 0.2 EU/dL (0.2)
--- NOTE | 2021-11-02 19:21 | NUR ---
FACESHEET AND CLINICALS FAXED TO [facility].
--- NOTE | 2021-11-02 20:43 | NUR ---
PT ACCEPTED TO [facility] BY DR GALLOWAY. # FOR REPORT [phone]
--- NOTE | 2021-11-02 20:49 | NUR ---
[facility] CALLED FOR BLS TRANSPORT. ETA 45 MINUTES.
--- NOTE | 2021-11-02 21:24 | NUR ---
REPORT GIVEN TO UBALDO DE LA VEGA AT [facility]
--- NOTE | 2021-11-02 21:24 | NUR ---
PATIENT TRANSFERRED TO [facility] IN STABLE CONDITION VIA AMBULANCE
[2021-11-02 21:25] VITALS: BP 145/98
== END 2021-11-02 21:25 ==
LOC: ER 13:05
DX: F41.9 Anxiety disorder, unspecified (principal); Z20.822 Contact with and (suspected) exposure to COVID-19; M06.9 Rheumatoid arthritis, unspecified; Z59.00 Homelessness unspecified; K21.9 Gastro-esophageal reflux disease without esophagitis; K58.9 Irritable bowel syndrome, unspecified; F90.9 Attention-deficit hyperactivity disorder, unspecified type; Z79.899 Other long term (current) drug therapy
CPT/HCPCS: 36415; 80048; 80076; 80143; 80307; 80320; 81003; 85025; 87426; 99283; C9803; G0480

== ENCOUNTER 2021-11-04 16:40 | Emergency (ER) | payer OTHER ==
[~2021-11-04] VITALS: Ht 160 cm; Wt 83.5 kg
--- NOTE | 2021-11-04 16:51 | NUR ---
BIBS C/O SI "TO OD WITH FENTANYL", WANTS VOL[facility]TARY ADMISSION TO [facility]. SECURITY WANDED PATIENT BEFORE ASSISTING TO BED 18. CHANGED TO HOSP GOWN, BELONGINGS PLACED TO PATIENT LOCKER. SUICIDAL PRECAUTIONS APPLIED. AWAITING MD ALTMAN.
--- NOTE | 2021-11-04 17:01 | NUR ---
DR PRIETO AT BEDSIDE
--- NOTE | 2021-11-04 17:11 | NUR ---
URINE SAMPLE COLLECTED AND SENT TO LAB
--- NOTE | 2021-11-04 17:18 | NUR ---
covid antigen swab done and sent to the lab
--- NOTE | 2021-11-04 17:18 | NUR ---
COVID SWAB DONE AND SENT TO THE LAB.
[2021-11-04 17:23] LABS: BASOPHILS % (AUTO) 0.5 % (0.0-2.0); HEMATOCRIT 43 % (39-51); HEMOGLOBIN 14.3 g/dL (13.5-17.5); LYMPHOCYTES # (AUTO) 3.2 K/uL (0.8-4.8); LYMPHOCYTES % (AUTO) 39.9 % (20.0-44.0); MEAN CORPUSCULAR HGB CONC 33 g/dl (31.0-36.0); MEAN CORPUSCULAR VOLUME 89 fL (80-96); MONOCYTES # (AUTO) 0.7 K/uL (0.1-1.30); MONOCYTES % (AUTO) 8.7 % (2.0-12.0); NEUTROPHILS % (AUTO) 48.9 % (43.0-81.0); PLATELET COUNT (AUTO) 305 K/uL (150-450); RED BLOOD CELL COUNT(AUTO) 4.82 MIL/uL (4.5-6.0); WHITE BLOOD COUNT (AUTO) 8.1 K/uL (4.3-11.0)
[2021-11-04 17:32] LABS: BILIRUBIN,URINE NEGATIVE (NEGATIVE); COLOR,URINE YELLOW (YELLOW); LEUKOCYTE ESTERASE ,URINE NEGATIVE (NEGATIVE); NITRITE, URINE NEGATIVE (NEGATIVE); PROTEIN,URINE NEGATIVE (NEGATIVE); UGLUCOSE NEGATIVE (NEGATIVE); UROBILINOGEN,URINE 0.2 EU/dL (0.2)
[2021-11-04 17:36] LABS: CALCIUM, SERUM 8.8 mg/dL (8.5-10.1); CARBON DIOXIDE 25 mmol/L (21-32); CHLORIDE 102 mmol/L (98-107); CREATININE 0.9 mg/dL (0.6-1.3); GLUCOSE 91 mg/dL (74-106); POTASSIUM 3.6 mmol/L (3.5-5.1); SODIUM SERUM 138 mmol/L (136-145); UREA NITROGEN, BLOOD 14 mg/dL (7-18)
[2021-11-04 17:41] LABS: ALANINE AMINOTRANSFERASE 23 U/L (12-78); ALBUMIN 3.5 g/dL (3.4-5.0); ALKALINE PHOSPHATASE 74 U/L (46-116); ASPARTATE AMINOTRANSFERASE 9 U/L (15-37); BILIRUBIN,DIRECT 0.1 mg/dL (0.0-0.2); BILIRUBIN,TOTAL 0.2 mg/dL (0.2-1.0); TOTAL PROTEIN, SERUM 7.2 g/dL (6.4-8.2)
[2021-11-04 17:43] LABS: ACETAMINOPHEN < 0 ug/ml (10-30); ALCOHOL, BLOOD < 3 mg/dL (0-0)
[2021-11-04] MEDS ORDERED: LORAZEPAM 1 MG TABLET ONE (19:15)
--- NOTE | 2021-11-04 19:23 | NUR ---
FACESHEET AND CLINICALS SENT TO [facility] INTAKE.
[2021-11-04] MEDS ORDERED: LORAZEPAM 1 MG TABLET PO ONE (19:30)
--- NOTE | 2021-11-05 00:02 | NUR ---
PROVIDED PT WITH FOOD AND DRINK, WILL CONTINUE TO MONITOR
--- NOTE | 2021-11-05 07:05 | NUR ---
[facility] INTAKE ACCEPTED BY DR RESENDIZ #[phone]
--- NOTE | 2021-11-05 07:10 | NUR ---
[facility] CALLED FOR BLS TO [facility] ETA- [phone]
[2021-11-05 07:20] VITALS: BP 136/76
--- NOTE | 2021-11-05 08:07 | NUR ---
BREAKFAST TRAY PROVIDED, TOLERATED WELL
--- NOTE | 2021-11-05 09:08 | NUR ---
REPORT GIVEN TO AMBULANCE STAFF
--- NOTE | 2021-11-05 09:09 | NUR ---
REPORT GIVEN TO NURSE SLATER FROM [facility].
--- NOTE | 2021-11-05 09:24 | NUR ---
THE PATIENT IS DISCHARGED TO [facility] IN STABLE CONDITION AND VIA ARRANGED TRANSPO.
== END 2021-11-05 09:26 ==
LOC: ER 16:42
DX: R45.851 Suicidal ideations (principal); Z20.822 Contact with and (suspected) exposure to COVID-19; K58.9 Irritable bowel syndrome, unspecified; F90.9 Attention-deficit hyperactivity disorder, unspecified type; M06.9 Rheumatoid arthritis, unspecified; Z79.899 Other long term (current) drug therapy; Z88.8 Allergy status to other drugs, medicaments and biological substances; K21.9 Gastro-esophageal reflux disease without esophagitis
CPT/HCPCS: 36415; 80048; 80076; 80143; 80307; 80320; 81003; 85025; 87426; 99285; C9803; G0480

== ENCOUNTER 2021-11-12 19:46 | Emergency (ER) | payer OTHER ==
[~2021-11-12] VITALS: Ht 170.2 cm; Wt 75.7 kg
--- NOTE | 2021-11-12 20:01 | NUR ---
PATIENT BIBRA 60 FROM STEET C/O SI WITH PLAN TO OD ON FENT REQUESTING VOL PSYCH ADMIT. PATIENT IS A/O X 4 RR EVEN AND UNLABORED, NO SOB NOTED, VSS. NO ACUTE DISTRESS NOTED. PATIENT TAKEN TO ER BED 18, SECURITY WANDED PT, BELONGINGS TAKEN TO PT LOCKER, PT PLACED IN GOWN. WILL CONTINUE TO MONITOR.
--- NOTE | 2021-11-12 20:11 | NUR ---
covid-19 specimen collected and sent to laboratory.
[2021-11-12 20:46] LABS: BASOPHILS # (AUTO) 0.1 K/uL (0.0-0.2); BASOPHILS % (AUTO) 0.7 % (0.0-2.0); EOSINOPHILS % (AUTO) 2.5 % (0.0-6.0); HEMATOCRIT 43 % (39-51); HEMOGLOBIN 14.4 g/dL (13.5-17.5); LYMPHOCYTES # (AUTO) 3.4 K/uL (0.8-4.8); LYMPHOCYTES % (AUTO) 41.4 % (20.0-44.0); MEAN CORPUSCULAR HGB CONC 34 g/dl (31.0-36.0); MEAN CORPUSCULAR VOLUME 89 fL (80-96); MONOCYTES # (AUTO) 0.8 K/uL (0.1-1.30); MONOCYTES % (AUTO) 9.6 % (2.0-12.0); NEUTROPHILS # (AUTO) 3.7 K/uL (1.8-8.9); NEUTROPHILS % (AUTO) 45.8 % (43.0-81.0); PLATELET COUNT (AUTO) 254 K/uL (150-450); RED BLOOD CELL COUNT(AUTO) 4.78 MIL/uL (4.5-6.0); WHITE BLOOD COUNT (AUTO) 8.2 K/uL (4.3-11.0)
[2021-11-12 20:54] LABS: BILIRUBIN,URINE NEGATIVE (NEGATIVE); COLOR,URINE YELLOW (YELLOW); LEUKOCYTE ESTERASE ,URINE NEGATIVE (NEGATIVE); NITRITE, URINE NEGATIVE (NEGATIVE); PROTEIN,URINE NEGATIVE (NEGATIVE); UGLUCOSE NEGATIVE (NEGATIVE); UROBILINOGEN,URINE 0.2 EU/dL (0.2)
[2021-11-12 21:02] LABS: CALCIUM, SERUM 8.8 mg/dL (8.5-10.1); CARBON DIOXIDE 27 mmol/L (21-32); CHLORIDE 105 mmol/L (98-107); CREATININE 0.8 mg/dL (0.6-1.3); GLUCOSE 101 mg/dL (74-106); POTASSIUM 3.6 mmol/L (3.5-5.1); SODIUM SERUM 140 mmol/L (136-145); UREA NITROGEN, BLOOD 14 mg/dL (7-18)
[2021-11-12 21:07] LABS: BACTERIA,URINE RARE /HPF (None Seen); MUCUS,URINE Many /LPF (None Seen); SQUAMOUS EPITHELIAL CELL,UR 0-2 /HPF (None Seen)
[2021-11-12 21:11] LABS: ALANINE AMINOTRANSFERASE 19 U/L (12-78); ALBUMIN 3.9 g/dL (3.4-5.0); ALKALINE PHOSPHATASE 82 U/L (46-116); ASPARTATE AMINOTRANSFERASE 21 U/L (15-37); BILIRUBIN,DIRECT 0.2 mg/dL (0.0-0.2); BILIRUBIN,TOTAL 0.8 mg/dL (0.2-1.0); TOTAL PROTEIN, SERUM 7.7 g/dL (6.4-8.2)
[2021-11-12 21:16] LABS: ALCOHOL, BLOOD < 3 mg/dL (0-0)
[2021-11-12] MEDS ORDERED: OLANZAPINE 10 MG VIAL IM ONE ×2 (21:30→21:39)
[2021-11-13] VITALS: BP 129/70
--- NOTE | 2021-11-13 02:51 | NUR ---
FACESHEET AND CLINICALS FAXED TO [facility].
--- NOTE | 2021-11-13 04:09 | NUR ---
PT IS ACCEPTED AT [facility] UNDER THE CARE OF DR. MILLER. PLEASE CALL [phone] FOR REPORT.
--- NOTE | 2021-11-13 04:11 | NUR ---
[facility] ETA 30 MIN
--- NOTE | 2021-11-13 04:13 | NUR ---
REPORT GIVEN TO UBALDO HOLLOWAY FOR SV[facility]
--- NOTE | 2021-11-13 04:40 | NUR ---
REPORT GIVEN TO EMS
== END 2021-11-13 04:50 ==
LOC: ER 19:52
DX: R45.851 Suicidal ideations (principal); F15.10 Other stimulant abuse, uncomplicated; R03.0 Elevated blood-pressure reading, without diagnosis of hypertension; K58.9 Irritable bowel syndrome, unspecified; K21.9 Gastro-esophageal reflux disease without esophagitis; M06.9 Rheumatoid arthritis, unspecified; F90.9 Attention-deficit hyperactivity disorder, unspecified type; F32.A Depression, unspecified; Z86.69 Personal history of other diseases of the nervous system and sense organs; Z87.11 Personal history of peptic ulcer disease; Z88.8 Allergy status to other drugs, medicaments and biological substances
CPT/HCPCS: 36415; 80048; 80076; 80143; 80307; 80320; 81001; 84484 ×2; 85025; 87426; 93005; 96372; 99285; C9803; J3490; G0480

== ENCOUNTER 2021-11-26 12:29 | Emergency (ER) | payer OTHER ==
[~2021-11-26] VITALS: Ht 167.6 cm; Wt 72.6 kg
--- NOTE | 2021-11-26 12:44 | NUR ---
Pt states "[place] month. Anxious/depressed. Need ativan"
[2021-11-26] MEDS ORDERED: LORAZEPAM 1 MG TABLET ONE (13:00)
[2021-11-26] MEDS ORDERED: LORAZEPAM 1 MG TABLET PO ONE (13:00)
--- NOTE | 2021-11-26 13:00 | NUR ---
Lunch served. Ate 100%
[2021-11-26 13:03] LABS: BASOPHILS # (AUTO) 0.1 K/uL (0.0-0.2); BASOPHILS % (AUTO) 0.6 % (0.0-2.0); EOSINOPHILS % (AUTO) 0.9 % (0.0-6.0); HEMATOCRIT 44 % (39-51); HEMOGLOBIN 14.6 g/dL (13.5-17.5); LYMPHOCYTES # (AUTO) 3.3 K/uL (0.8-4.8); LYMPHOCYTES % (AUTO) 35.7 % (20.0-44.0); MEAN CORPUSCULAR HGB CONC 34 g/dl (31.0-36.0); MEAN CORPUSCULAR VOLUME 89 fL (80-96); MONOCYTES # (AUTO) 0.6 K/uL (0.1-1.30); NEUTROPHILS # (AUTO) 5.2 K/uL (1.8-8.9); NEUTROPHILS % (AUTO) 55.8 % (43.0-81.0); PLATELET COUNT (AUTO) 336 K/uL (150-450); RED BLOOD CELL COUNT(AUTO) 4.88 MIL/uL (4.5-6.0); WHITE BLOOD COUNT (AUTO) 9.3 K/uL (4.3-11.0)
[2021-11-26 13:30] LABS: BILIRUBIN,URINE NEGATIVE (NEGATIVE); COLOR,URINE YELLOW (YELLOW); LEUKOCYTE ESTERASE ,URINE NEGATIVE (NEGATIVE); NITRITE, URINE NEGATIVE (NEGATIVE); PROTEIN,URINE NEGATIVE (NEGATIVE); UGLUCOSE NEGATIVE (NEGATIVE); UROBILINOGEN,URINE 0.2 EU/dL (0.2)
[2021-11-26 13:50] LABS: BACTERIA,URINE None seen /HPF (None Seen); RBC,URINE NONE SEEN /HPF (0-2); SQUAMOUS EPITHELIAL CELL,UR None Seen /HPF (None Seen); WBC,URINE NONE SEEN /HPF (0-3)
[2021-11-26 13:55] LABS: CALCIUM, SERUM 9.3 mg/dL (8.5-10.1); CARBON DIOXIDE 21 mmol/L (21-32); CHLORIDE 103 mmol/L (98-107); CREATININE 0.9 mg/dL (0.6-1.3); GLUCOSE 91 mg/dL (74-106); POTASSIUM 3.7 mmol/L (3.5-5.1); SODIUM SERUM 138 mmol/L (136-145); UREA NITROGEN, BLOOD 19 mg/dL (7-18)
[2021-11-26 14:01] LABS: ALANINE AMINOTRANSFERASE 21 U/L (12-78); ALBUMIN 3.6 g/dL (3.4-5.0); ALCOHOL, BLOOD < 3 mg/dL (0-0); ALKALINE PHOSPHATASE 77 U/L (46-116); ASPARTATE AMINOTRANSFERASE 16 U/L (15-37); TOTAL PROTEIN, SERUM 7.2 g/dL (6.4-8.2)
[2021-11-26 14:13] LABS: ACETAMINOPHEN 0 ug/ml (10-30); BILIRUBIN,DIRECT 0.1 mg/dL (0.0-0.2); BILIRUBIN,TOTAL 0.1 mg/dL (0.2-1.0)
--- NOTE | 2021-11-26 15:27 | NUR ---
SS consult: SS Consult requested for homelessness. The pt. is a 61 year-old male patient who came in for SI. Upon SS consult, the pt. is Alert & Oriented x 4 and makes good eye contact. The pt. appears unkempt with anxious mood & affect. Pt.'s has pressured speech. Per pt. he has been experiencing SI with plan to OD on drugs. Pt. denies HI and denies hallucinations. BAM explored pt.'s living situation. Patient states he is currently experiencing homelessness for the past 6 months. BAM explored pt.'s mental health Hx. Patient states he has Hx. of ADHD, Anxiety and Depression. Pt. denies being prescribed medication. SW explored pt.'s drug & ETOH use. Pt. denies any drug or alcohol use. Per pt. is ambulatory and independent with all his ADL's. BAM explored pt.'s support system. Pt. states he has no support system. Plan: SW will refer pt. to [facility] [[facility] [place] [address] FAX:[phone]] for inpatient psychiatric treatment. BAM provided pt. with homeless resources, and he accepted them. Pt. signed homeless waiver and it was placed in the pt.'s chart. Year-round shelters: [facility] [address] [place], [place] [phone] ; [facility] [address] [place] [address]; [place] [facility] Kfihmaw4869 [facility]. [facility] [address] Hygiene: [place] [facility]: [address]. [place] ; [facility] [facility] [address] [facility] ; [facility] 6009 Bree[address] Richard arnulfo . Food Resources: [place] [employer] [facility] at [facility]- [address]. [place]; Meet Each Need with Dignity ([facility]) [address] [place]; [facility] Food Pantry 2429 [facility]; [facility] 8586 [facility] [place]. Mental Health resources provided: [facility] [address] [place], [place] [address] ; [facility], Inc. [address] [facility] [address], [place], [place] [phone] ; [facility]gent Care [facility] [address] [place] [address] [place], [place] [phone] ; [facility] [address] [place], [place] [phone] Healthcare Clinics: [facility] [address] [facility], [address] [place]. [place] ; [facility] [address] [facility] [address] [place] [address]; [facility] [address] [place] [address] [phone] Counseling--Outpatient [facility] [address] [facility], [place] [address] (Specializes in in-depth psychotherapy for emotional distress: anxiety, depression, interpersonal conflicts, life transitions, childhood abuse) [facility] Guidance Center [address] [place] [address] (Assist with solving problem marital difficulties, separation & divorce, aging parents, & grief, chronic & terminal illness) [facility] [address] [place] [address] (Deal with loss & grief, anxiety, marital difficulties) Homebound/Mental Health Services 0[address] [facility], [address] [place], [place] [phone] (Provide in-home mental services to people who are incapable of leaving their homes) Organization for Needs of the Elderly Senior Service/Resource Center [address] [address] [facility]. [place], [place] [phone] [facility] 65[address] [facility]. [place], [place] [address] PSYCHIATRIC OUTPATIENT SERVICES [facility] Partial Hospitalization and Intensive Outpatient Program (Managed Care and [place] Only)[address] [facility] [phone] [facility] Partial Hospitalization and Outpatient [address] [place], [place] [phone] BREEZY RODRIGUEZ [facility] [place] Lss[address] [place], [place] [phone] [facility] Partial Hospitalization and Outpatient [id number] Mandi Simpson Breezy arnulfo, [phone] Substance Abuse resources provided included: [facility] Substance Abuse Self-Helpline ([facility]) ; CRI -HELP [address] [facility]. [place] [address] ; [facility] [address] [facility] [address] ; [facility] Rehabilitation Program [address] vdCatskill Regional Medical Center [address] ; [facility] [place] 400 [facility] [phone] ; [facility] 4940 [facility] [address] ; [facility] 909 [facility] [phone] ; [facility] Substance Abuse Helpline([facility])-[facility] ; [facility] ; [facility] [place]; [facility] [place]; C[facility]Help [place]; I-ADARP Inter Agency Drug Abuse Recovery Breezy Negretearnulfo; [place] [facility]; [facility]; [facility] [place] [facility] [place], [facility]. Robert Almanzar; Alcoholics Anonymous -sfv; [place] ; Marijuana Anonymous -SFV; Narcotics Anonymous [email or web address];
[2021-11-26 16:00] VITALS: BP 137/89
--- NOTE | 2021-11-26 16:00 | NUR ---
Medically Cleared for transfer to Psych Facility. Anxious and able to express needs. Encouraged relaxation techniques, compliant with care. Awaiting acceptance from Psych
--- NOTE | 2021-11-26 16:14 | NUR ---
BAM faxed clinicals to [facility] [[facility] [place] [address] FAX:[phone]] for voluntary psychiatric treatment and to [facility] TEL:[phone] fax:[phone].
--- NOTE | 2021-11-26 16:49 | NUR ---
RECEIVED CALL FROM [facility], ACCEPTED PT, CALL NURSES STATION FOR REPORT
--- NOTE | 2021-11-26 17:08 | NUR ---
UNDER CARE OF DR. RESENDIZ REPORT TO [phone] EXT 240, UNIT 2
--- NOTE | 2021-11-26 17:10 | NUR ---
Nurse Knowledge Exchange with UBALDO Sprague. Await transport to facility
== END 2021-11-26 18:48 ==
LOC: ER 12:32
DX: F41.9 Anxiety disorder, unspecified (principal); Z20.822 Contact with and (suspected) exposure to COVID-19; M06.9 Rheumatoid arthritis, unspecified; F90.9 Attention-deficit hyperactivity disorder, unspecified type; K58.9 Irritable bowel syndrome, unspecified; K21.9 Gastro-esophageal reflux disease without esophagitis; Z87.11 Personal history of peptic ulcer disease; F17.210 Nicotine dependence, cigarettes, uncomplicated; Z79.899 Other long term (current) drug therapy
CPT/HCPCS: 99285; 85025; 80048; 80076; 81001; 36415; 87426; 80143; 80320; 80307; C9803; G0480

== ENCOUNTER 2021-12-31 20:26 | Emergency (ER) | payer OTHER ==
[~2021-12-31] VITALS: Ht 170.2 cm; Wt 105.7 kg
[2021-12-31 20:36] VITALS: BP 143/78
--- NOTE | 2021-12-31 20:42 | NUR ---
BIBS. TO ER BED 18. AAOX4. NOT IN RESP DISTRESS. AMBULATORY. CAME IN FOR MEDICAL CLEARANCE TO BE ADMITTED VOLUNTARILY FOR SUICIDAL IDEATIO W/ PLAN TO OD ON FENTANYL. PT DENIES HI. PT WAS GOWN, WANDED AND BELONGINGS PLACE IN LOCKER. SITTER WITHIN SIGHT . URINE AND COVID SWAB COLLECTED. WAS AT THE BEDSIDE
[2021-12-31] MEDS ORDERED: LORAZEPAM 1 MG TABLET ONE (20:55)
[2021-12-31] MEDS ORDERED: LORAZEPAM 1 MG TABLET PO ONE (21:00)
[2021-12-31 21:22] LABS: CALCIUM, SERUM 9.5 mg/dL (8.5-10.1); CARBON DIOXIDE 23 mmol/L (21-32); CHLORIDE 104 mmol/L (98-107); GLUCOSE 108 mg/dL (74-106); POTASSIUM 3.6 mmol/L (3.5-5.1); SODIUM SERUM 140 mmol/L (136-145); UREA NITROGEN, BLOOD 12 mg/dL (7-18)
[2021-12-31 21:26] LABS: ALANINE AMINOTRANSFERASE 27 U/L (12-78); ALBUMIN 4.2 g/dL (3.4-5.0); ALCOHOL, BLOOD < 3 mg/dL (0-0); ALKALINE PHOSPHATASE 100 U/L (46-116); ASPARTATE AMINOTRANSFERASE 14 U/L (15-37); BILIRUBIN,DIRECT 0.1 mg/dL (0.0-0.2); BILIRUBIN,TOTAL 0.3 mg/dL (0.2-1.0); TOTAL PROTEIN, SERUM 8.7 g/dL (6.4-8.2)
[2021-12-31 21:43] LABS: BILIRUBIN,URINE NEGATIVE (NEGATIVE); COLOR,URINE YELLOW (YELLOW); LEUKOCYTE ESTERASE ,URINE NEGATIVE (NEGATIVE); NITRITE, URINE NEGATIVE (NEGATIVE); PH,URINE 8.5 (5.0-8.0); PROTEIN,URINE NEGATIVE (NEGATIVE); UGLUCOSE NEGATIVE (NEGATIVE); UROBILINOGEN,URINE 0.2 EU/dL (0.2)
[2021-12-31 21:45] LABS: BASOPHILS % (AUTO) 0.3 % (0.0-2.0); EOSINOPHILS % (AUTO) 0.4 % (0.0-6.0); HEMATOCRIT 48 % (39-51); LYMPHOCYTES # (AUTO) 1.9 K/uL (0.8-4.8); LYMPHOCYTES % (AUTO) 18.3 % (20.0-44.0); MEAN CORPUSCULAR HGB CONC 34 g/dl (31.0-36.0); MEAN CORPUSCULAR VOLUME 89 fL (80-96); MONOCYTES # (AUTO) 0.5 K/uL (0.1-1.30); MONOCYTES % (AUTO) 4.7 % (2.0-12.0); NEUTROPHILS % (AUTO) 76.3 % (43.0-81.0); PLATELET COUNT (AUTO) 319 K/uL (150-450); RED BLOOD CELL COUNT(AUTO) 5.33 MIL/uL (4.5-6.0); WHITE BLOOD COUNT (AUTO) 10.4 K/uL (4.3-11.0)
--- NOTE | 2021-12-31 23:00 | NUR ---
PT NO LONGER WISHES TO STAY IN ER AND WOULD LIKE TO BE DISCHARGED. PT DENIES SI/HI. DR CORDOVA AWARE.
== END 2021-12-31 23:01 | disposition left against medical advice (07) ==
LOC: ER 20:31
DX: R45.851 Suicidal ideations (principal); F32.A Depression, unspecified; Z20.822 Contact with and (suspected) exposure to COVID-19; F90.9 Attention-deficit hyperactivity disorder, unspecified type; F19.10 Other psychoactive substance abuse, uncomplicated; K58.9 Irritable bowel syndrome, unspecified; K21.9 Gastro-esophageal reflux disease without esophagitis; M06.9 Rheumatoid arthritis, unspecified; M81.0 Age-related osteoporosis without current pathological fracture; Z79.899 Other long term (current) drug therapy; Z88.8 Allergy status to other drugs, medicaments and biological substances
CPT/HCPCS: 99285; 85025; 80048; 80076; 81003; 36415; 87426; 80143; 80320; 80307; C9803; G0480

== ENCOUNTER 2022-01-15 07:39 | Emergency (ER) | payer OTHER ==
[~2022-01-15] VITALS: Ht 170.2 cm; Wt 90.7 kg
--- NOTE | 2022-01-15 08:07 | NUR ---
COVID SWAB AND URINE COLLECTED AND SENT TO LAB
[2022-01-15 08:18] LABS: BASOPHILS # (AUTO) 0.1 K/uL (0.0-0.2); BASOPHILS % (AUTO) 0.5 % (0.0-2.0); EOSINOPHILS % (AUTO) 1.2 % (0.0-6.0); HEMATOCRIT 44 % (39-51); HEMOGLOBIN 14.7 g/dL (13.5-17.5); LYMPHOCYTES # (AUTO) 2.6 K/uL (0.8-4.8); LYMPHOCYTES % (AUTO) 22.5 % (20.0-44.0); MEAN CORPUSCULAR HGB CONC 33 g/dl (31.0-36.0); MEAN CORPUSCULAR VOLUME 90 fL (80-96); MONOCYTES # (AUTO) 1.1 K/uL (0.1-1.30); MONOCYTES % (AUTO) 9.7 % (2.0-12.0); NEUTROPHILS # (AUTO) 7.8 K/uL (1.8-8.9); NEUTROPHILS % (AUTO) 66.1 % (43.0-81.0); PLATELET COUNT (AUTO) 248 K/uL (150-450); RED BLOOD CELL COUNT(AUTO) 4.94 MIL/uL (4.5-6.0); WHITE BLOOD COUNT (AUTO) 11.8 K/uL (4.3-11.0)
[2022-01-15 08:39] LABS: BILIRUBIN,URINE SMALL (NEGATIVE); COLOR,URINE DARK YELLOW (YELLOW); LEUKOCYTE ESTERASE ,URINE NEGATIVE (NEGATIVE); NITRITE, URINE NEGATIVE (NEGATIVE); PROTEIN,URINE TRACE mg/dl (NEGATIVE); UGLUCOSE NEGATIVE (NEGATIVE); UROBILINOGEN,URINE 0.2 EU/dL (0.2)
[2022-01-15 08:42] LABS: ALANINE AMINOTRANSFERASE 41 U/L (12-78); ALBUMIN 4.1 g/dL (3.4-5.0); ALCOHOL, BLOOD < 3 mg/dL (0-0); ALKALINE PHOSPHATASE 97 U/L (46-116); ASPARTATE AMINOTRANSFERASE 55 U/L (15-37); BILIRUBIN,DIRECT 0.3 mg/dL (0.0-0.2); BILIRUBIN,TOTAL 1.8 mg/dL (0.2-1.0); CARBON DIOXIDE 25 mmol/L (21-32); CHLORIDE 96 mmol/L (98-107); GLUCOSE 124 mg/dL (74-106); POTASSIUM 3.4 mmol/L (3.5-5.1); SODIUM SERUM 132 mmol/L (136-145); TOTAL PROTEIN, SERUM 7.8 g/dL (6.4-8.2); UREA NITROGEN, BLOOD 24 mg/dL (7-18)
[2022-01-15 08:45] LABS: ACETAMINOPHEN 0 ug/ml (10-30)
[2022-01-15 08:53] LABS: BACTERIA,URINE Few /HPF (None Seen); SQUAMOUS EPITHELIAL CELL,UR Few /HPF (None Seen)
[2022-01-15] MEDS ORDERED: LORAZEPAM 1 MG TABLET PO ONE (09:00)
[2022-01-15] MEDS ORDERED: LORAZEPAM 1 MG TABLET ONE (09:22)
--- NOTE | 2022-01-15 09:47 | NUR ---
BAM faxed clinicals to [facility] TEL:[phone] fax:[phone] for for voluntary psychiatric treatment at [facility] [[facility] [place] [address] FAX:[phone]].
--- NOTE | 2022-01-15 10:46 | NUR ---
PT ACCEPTED TO [facility] [place] [address] RESENDIZ NUMBER FOR REPORT [phone]
--- NOTE | 2022-01-15 10:47 | NUR ---
TRANSPORTATION ETA 1200
--- NOTE | 2022-01-15 10:50 | NUR ---
REPORT GIVEN TO PARDEEP FOR SV[facility]LANA
[2022-01-15 10:52] VITALS: BP 133/88
--- NOTE | 2022-01-15 11:12 | NUR ---
PT PICKED UP BY LISA PEREIRA.
== END 2022-01-15 11:22 ==
LOC: ER 07:42
DX: R45.851 Suicidal ideations (principal); F15.10 Other stimulant abuse, uncomplicated; F19.10 Other psychoactive substance abuse, uncomplicated; E80.6 Other disorders of bilirubin metabolism; F41.9 Anxiety disorder, unspecified; Z20.822 Contact with and (suspected) exposure to COVID-19; E87.6 Hypokalemia; Z59.00 Homelessness unspecified; K21.9 Gastro-esophageal reflux disease without esophagitis; F90.9 Attention-deficit hyperactivity disorder, unspecified type; M06.9 Rheumatoid arthritis, unspecified; K58.9 Irritable bowel syndrome, unspecified; Z88.8 Allergy status to other drugs, medicaments and biological substances; Z79.899 Other long term (current) drug therapy
CPT/HCPCS: 99285; 85025; 80048; 87086; 80076; 81001; 36415; 87426; 80143; 80320; 80307; C9803; G0480

== ENCOUNTER 2022-01-24 07:45 | Emergency (ER) | payer OTHER ==
[~2022-01-24] VITALS: Ht 170.2 cm; Wt 90.7 kg
--- NOTE | 2022-01-24 08:02 | NUR ---
BIBS FOR MEDICAL CLEARANCE TO GO TO [facility] WITH SI PLAN TO OD ON FENTANYL. THE PATIENT DENIES HI. DENIES HAVING VISUAL OR AUDITORY HALLUCINATIONS. IN ROOM AIR AND DENIES SOB. RESPIRATION REGULAR AND UNLABORED. SECURITY IS CALLED IN TO DO WANDING. WILL CONTINUE TO MONITOR THE PATIENT.
--- NOTE | 2022-01-24 08:28 | NUR ---
URINE COLLECTED AND COVID SWAB DONE AND SENT TO LAB
[2022-01-24 08:54] LABS: BASOPHILS % (AUTO) 0.4 % (0.0-2.0); EOSINOPHILS % (AUTO) 1.6 % (0.0-6.0); HEMATOCRIT 49 % (39-51); HEMOGLOBIN 16.3 g/dL (13.5-17.5); LYMPHOCYTES # (AUTO) 2.5 K/uL (0.8-4.8); LYMPHOCYTES % (AUTO) 24.4 % (20.0-44.0); MEAN CORPUSCULAR HGB CONC 33 g/dl (31.0-36.0); MEAN CORPUSCULAR VOLUME 90 fL (80-96); MONOCYTES # (AUTO) 1.1 K/uL (0.1-1.30); MONOCYTES % (AUTO) 10.7 % (2.0-12.0); NEUTROPHILS # (AUTO) 6.4 K/uL (1.8-8.9); NEUTROPHILS % (AUTO) 62.9 % (43.0-81.0); PLATELET COUNT (AUTO) 334 K/uL (150-450); RED BLOOD CELL COUNT(AUTO) 5.46 MIL/uL (4.5-6.0); WHITE BLOOD COUNT (AUTO) 10.2 K/uL (4.3-11.0)
--- NOTE | 2022-01-24 09:15 | NUR ---
BREAKFAST TRAY PROVIDED, MARY WELL
[2022-01-24 09:24] LABS: CALCIUM, SERUM 9.7 mg/dL (8.5-10.1); CARBON DIOXIDE 26 mmol/L (21-32); CHLORIDE 99 mmol/L (98-107); GLUCOSE 111 mg/dL (74-106); POTASSIUM 3.7 mmol/L (3.5-5.1); SODIUM SERUM 136 mmol/L (136-145); UREA NITROGEN, BLOOD 16 mg/dL (7-18)
[2022-01-24 09:26] LABS: BILIRUBIN,URINE NEGATIVE (NEGATIVE); COLOR,URINE YELLOW (YELLOW); LEUKOCYTE ESTERASE ,URINE NEGATIVE (NEGATIVE); NITRITE, URINE NEGATIVE (NEGATIVE); PH,URINE 7.5 (5.0-8.0); PROTEIN,URINE NEGATIVE (NEGATIVE); UGLUCOSE NEGATIVE (NEGATIVE); UROBILINOGEN,URINE 0.2 EU/dL (0.2)
[2022-01-24 09:32] LABS: ALANINE AMINOTRANSFERASE 57 U/L (12-78); ALBUMIN 4.6 g/dL (3.4-5.0); ALCOHOL, BLOOD < 3 mg/dL (0-0); ALKALINE PHOSPHATASE 94 U/L (46-116); ASPARTATE AMINOTRANSFERASE 34 U/L (15-37); BILIRUBIN,DIRECT 0.1 mg/dL (0.0-0.2); BILIRUBIN,TOTAL 0.7 mg/dL (0.2-1.0); TOTAL PROTEIN, SERUM 8.9 g/dL (6.4-8.2)
[2022-01-24] MEDS ORDERED: IBUPROFEN 600 MG TABLET PO ONE ×2 (09:38→14:00)
[2022-01-24] MEDS ORDERED: IBUPROFEN 600 MG TABLET ONE (09:39)
[2022-01-24 09:43] LABS: ACETAMINOPHEN < 0 ug/ml (10-30)
[2022-01-24 10:50] LABS: BACTERIA,URINE Few /HPF (None Seen); RBC,URINE 0-2 /HPF (0-2); SPERM,URINE Rare /HPF (None Seen); SQUAMOUS EPITHELIAL CELL,UR Few /HPF (None Seen)
[2022-01-24 12:05] VITALS: BP 140/76
--- NOTE | 2022-01-24 12:05 | NUR ---
PT PROVIDED W LUNCH TRAY. STABLE VITALS.
--- NOTE | 2022-01-24 13:10 | NUR ---
FAXED CLINICALS TO [facility] INTAKE.
--- NOTE | 2022-01-24 16:57 | NUR ---
PT RESTLESS, CONSTANTLY COMING TO NURSING STATION AND BOTHERING ED STAFF. GETTING AGITATED, WANTS TO LEAVE, NOT ON [address] CORDOVA AWARE.
--- NOTE | 2022-01-24 17:18 | NUR ---
PT LEFT, REFUSED TO SIGN ACI.
--- NOTE | 2022-01-24 18:05 | NUR ---
INFORMED SWATI OF [facility] INTAKE THAT PATIENT NOT SUICIDAL ANYMORE AND WAS DISCHARGED.
== END 2022-01-24 17:20 | disposition home or self-care (01) ==
LOC: ER 07:48
DX: R45.851 Suicidal ideations (principal); F19.10 Other psychoactive substance abuse, uncomplicated; Z88.8 Allergy status to other drugs, medicaments and biological substances; F90.9 Attention-deficit hyperactivity disorder, unspecified type; K21.9 Gastro-esophageal reflux disease without esophagitis; K58.9 Irritable bowel syndrome, unspecified; M06.9 Rheumatoid arthritis, unspecified; Z79.899 Other long term (current) drug therapy; Z20.822 Contact with and (suspected) exposure to COVID-19
CPT/HCPCS: 99285; 85025; 80048; 80076; 81001; 36415; 87426; 80143; 80320; 80307; C9803; G0480

== ENCOUNTER 2022-02-01 16:03 | Emergency (ER) | payer OTHER ==
[~2022-02-01] VITALS: Ht 170.2 cm; Wt 90.7 kg
[2022-02-01 16:24] VITALS: BP 111/79
--- NOTE | 2022-02-01 16:25 | NUR ---
COVID SWAB COLLECTED AND SENT TO LAB
--- NOTE | 2022-02-01 17:00 | NUR ---
[facility], c/o headache. SI +plan to OD on fentanyl. requesting voluntary psychiatric admission to [facility]. Kept comfortable, will continue to monitor accordingly. Security at bedside for wanding.
[2022-02-01 17:22] LABS: BASOPHILS # (AUTO) 0.1 K/uL (0.0-0.2); BASOPHILS % (AUTO) 0.5 % (0.0-2.0); EOSINOPHILS % (AUTO) 1.5 % (0.0-6.0); HEMATOCRIT 44 % (39-51); HEMOGLOBIN 14.5 g/dL (13.5-17.5); LYMPHOCYTES % (AUTO) 30.4 % (20.0-44.0); MEAN CORPUSCULAR HGB CONC 33 g/dl (31.0-36.0); MEAN CORPUSCULAR VOLUME 90 fL (80-96); MONOCYTES # (AUTO) 0.9 K/uL (0.1-1.30); MONOCYTES % (AUTO) 8.6 % (2.0-12.0); NEUTROPHILS # (AUTO) 5.8 K/uL (1.8-8.9); PLATELET COUNT (AUTO) 341 K/uL (150-450); RED BLOOD CELL COUNT(AUTO) 4.87 MIL/uL (4.5-6.0); WHITE BLOOD COUNT (AUTO) 9.9 K/uL (4.3-11.0)
[2022-02-01 17:59] LABS: CALCIUM, SERUM 9.1 mg/dL (8.5-10.1); CARBON DIOXIDE 22 mmol/L (21-32); CHLORIDE 103 mmol/L (98-107); CREATININE 0.8 mg/dL (0.6-1.3); GLUCOSE 99 mg/dL (74-106); POTASSIUM 3.9 mmol/L (3.5-5.1); SODIUM SERUM 134 mmol/L (136-145); UREA NITROGEN, BLOOD 16 mg/dL (7-18)
[2022-02-01 18:05] LABS: ALANINE AMINOTRANSFERASE 36 U/L (12-78); ALBUMIN 3.7 g/dL (3.4-5.0); ALKALINE PHOSPHATASE 78 U/L (46-116); ASPARTATE AMINOTRANSFERASE 22 U/L (15-37); BILIRUBIN,DIRECT 0.1 mg/dL (0.0-0.2); BILIRUBIN,TOTAL 0.4 mg/dL (0.2-1.0); TOTAL PROTEIN, SERUM 7.4 g/dL (6.4-8.2)
[2022-02-01 18:06] LABS: ACETAMINOPHEN 0 ug/ml (10-30); ALCOHOL, BLOOD < 3 mg/dL (0-0)
--- NOTE | 2022-02-01 18:52 | NUR ---
urine collected and sent to lab.
[2022-02-01 19:48] LABS: BILIRUBIN,URINE NEGATIVE (NEGATIVE); COLOR,URINE YELLOW (YELLOW); LEUKOCYTE ESTERASE ,URINE TRACE (NEGATIVE); NITRITE, URINE NEGATIVE (NEGATIVE); PH,URINE 6.5 (5.0-8.0); PROTEIN,URINE NEGATIVE (NEGATIVE); UGLUCOSE NEGATIVE (NEGATIVE); UROBILINOGEN,URINE 0.2 EU/dL (0.2)
[2022-02-01] MEDS ORDERED: LORAZEPAM 1 MG TABLET PO ONE (20:30)
[2022-02-01 20:35] LABS: BACTERIA,URINE Rare /HPF (None Seen); RBC,URINE 0-2 /HPF (0-2)
[2022-02-01 20:36] LABS: SQUAMOUS EPITHELIAL CELL,UR None Seen /HPF (None Seen)
[2022-02-01] MEDS ORDERED: LORAZEPAM 1 MG TABLET ONE (21:10)
--- NOTE | 2022-02-01 22:26 | NUR ---
FAXED CLINICALS TO [facility]
--- NOTE | 2022-02-02 01:08 | NUR ---
PER SEPTEMBER AT [facility] INTAKE: PT GOT ACCEPTED AT [facility] BY DR. GILBERT # FOR REPORT: [phone] EXT [phone],
--- NOTE | 2022-02-02 01:19 | NUR ---
REPORT GIVEN TO SARA AT [facility], ETA FOR [facility] : 30 MIN
--- NOTE | 2022-02-02 01:49 | NUR ---
PT WAS TRANSFERRED TO [facility] IN STABLE CONDITION. BELONGINGS WERE PICKED UP WITH THE PT
== END 2022-02-02 01:52 ==
LOC: ER 18:51
DX: R45.851 Suicidal ideations (principal); Z20.822 Contact with and (suspected) exposure to COVID-19; K21.9 Gastro-esophageal reflux disease without esophagitis; K58.9 Irritable bowel syndrome, unspecified; M06.9 Rheumatoid arthritis, unspecified; Z88.8 Allergy status to other drugs, medicaments and biological substances; F19.10 Other psychoactive substance abuse, uncomplicated; Z87.11 Personal history of peptic ulcer disease
CPT/HCPCS: 99285; 85025; 80048; 80076; 81001; 36415; 87426; 80143; 80320; 80307; C9803; G0480

== ENCOUNTER 2022-02-15 01:47 | Emergency (ER) | payer OTHER ==
--- NOTE | 2022-02-15 02:17 | NUR ---
CALLED FOR TRIAGE NO ANSWER
--- NOTE | 2022-02-15 02:27 | NUR ---
CALLED FOR TRIAGE. NO ANSWER
--- NOTE | 2022-02-15 02:34 | NUR ---
called patient to triage room . no response
== END 2022-02-15 02:35 | disposition left against medical advice (07) ==
LOC: ER 01:50
DX: Z53.21 Procedure and treatment not carried out due to patient leaving prior to being seen by health care provider (principal)

== ENCOUNTER 2022-02-15 03:22 | Emergency (ER) | payer OTHER ==
[~2022-02-15] VITALS: Ht 170.2 cm; Wt 90.7 kg
[2022-02-15 03:22] VITALS: BP 0/0
--- NOTE | 2022-02-15 03:22 | NUR ---
PT FOUND DOWN IN PARKING LOT, UNRESPONSIVE, PULSELESS. CPR INITIATED. PT TRANSPORTED VIA GURNEY INTO ER WHILE PERFORMING CPR. IN ER ACLS INITIATED. PLEASE SEE CARDIO-PULMONARY ARREST RECORD.
[2022-02-15] MEDS ORDERED: ATROPINE SULFATE 1 MG/10 ML DISP.SYRIN IV ONE (03:24)
[2022-02-15] MEDS ORDERED: EPINEPHRINE (1:10,000) SYRINGE 1 MG/10 ML DISP.SYRIN IVP ONE (03:24)
[2022-02-15] MEDS ORDERED: SODIUM BICARBONATE SYR 50 MEQ/50 ML DISP.SYRIN IV ONE (03:24)
[2022-02-15] MEDS ORDERED: DEXTROSE 50%-WATER 50 ML DISP.SYRIN IV ONE (03:24)
--- NOTE | 2022-02-15 03:37 | NUR ---
PATIENT ASYSTOLE. TIME OF 336, CALLED BY DR ORTEGA.
--- NOTE | 2022-02-15 04:05 | NUR ---
[facility] OFFICE CALLED TO REPORT . SPOKE WITH MOIRA. SPRAY GUN STRIPER CASE#[id number]
[2022-02-15] MEDS ORDERED: NALOXONE PREFILLED SYRINGE 2 MG/2 ML SYRINGE ONE (04:23)
--- NOTE | 2022-02-15 04:24 | NUR ---
CALLED [facility] AND SPOKE WITH PAO. WAS INFORMED PT MAY BE CANDIDATE FOR TISSUE DONATION. RECIEVED CASE #[id number]
--- NOTE | 2022-02-15 04:25 | NUR ---
CALLED HARDEEP JONES AT [phone] [employer]ILY [employer]. LEFT A MESSAGE.
--- NOTE | 2022-02-15 05:13 | NUR ---
BODY WAS TRANSFERRED TO [facility] [place] [place]
[2022-02-15] MEDS ORDERED: NALOXONE PREFILLED SYRINGE 2 MG/2 ML SYRINGE IV ONE ×2 (05:30)
--- NOTE | 2022-02-15 07:43 | NUR ---
CALLED [id number] AND REPORTED THE INCIDENT TO DIRECT MARKETING MANAGER 454.
== END 2022-02-15 06:12 ==
LOC: ER 03:23
DX: I46.9 Cardiac arrest, cause unspecified (principal)
CPT/HCPCS: 99285; 92950; 31500; 96374; J0461; J0171; J3490; J2310